=== PATIENT | female | born 1965 | race Caucasian/White ===

== ENCOUNTER 2018-05-16 10:12 | Outpatient (CLI) | payer BC, SELFPAY ==
[2018-05-16 10:59] LABS: Abs Immature Grans 0.01 k/cumm (0.0-0.09); Absolute Basophil Count 0.04 k/cumm (0.0-0.2); Absolute Eosinophil Count 0.06 k/cumm (0.0-0.7); Absolute Lymphocyte Count 3.19 k/cumm (1.2-3.4); Absolute Monocyte Count 0.45 k/cumm (0.11-0.7); Absolute Neutrophil Count 3.88 k/cumm (1.2-6.7); Basophils % 0.5; Eosinophils % 0.8; HCT 42.2 % (36.0-46.0); HGB 13.8 g/dL (12.0-15.5); Immature Grans % 0.1; Lymphocytes % 41.8; Mean Corp. HGB Concentration 32.7 g/dL (32.0-36.0); Mean Corpuscular Hemoglobin 28.1 pg (27.0-33.0); Mean Corpuscular Volume 85.9 fL (80-95); Mean Platelet Volume 9.1 fL (8.0-11.0); Monocytes % 5.9; Neutrophils % 50.9; Platelet Count 226 x1000/uL (130-400); RBC 4.91 m/cumm (4.00-5.20); RBC Distribution Width 13.8 % (11.7-14.6); White Blood Cell Count 7.63 k/cumm (4.4-10.8)
[2018-05-16 11:13] LABS: ALT 23 U/L (12-78); AST 16 U/L (15-37); Albumin 3.6 g/dL (3.4-5.0); Alkaline Phosphatase 76 U/L (46-116); Anion Gap 7.3 mmol/L (3-11); BUN 15 mg/dL (7-18); Bilirubin, Total 0.4 mg/dL (0.2-1.0); CO2 24.7 mmol/L (21.0-32.0); CREATININE 1.09 mg/dL (0.55-1.02); Calcium 9.1 mg/dL (8.5-10.1); Chloride 108 mmol/L (98-107); Estimated GFR 52.31 (mL/min/1.73m2); Glucose 110 mg/dL (70-100); Potassium 3.9 mmol/L (3.5-5.1); Sodium 140 mmol/L (136-145); Total Protein 7.8 g/dL (6.4-8.2)
== END 2018-05-16 10:32 ==
PROVIDERS: PCP Physician Assistant; Visit Provider Nurse Practitioner Adult Health
DX: C50.911 Malignant neoplasm of unspecified site of right female breast (principal); Z17.0 Estrogen receptor positive status [ER+]; C50.912 Malignant neoplasm of unspecified site of left female breast; Z15.01 Genetic susceptibility to malignant neoplasm of breast; Z15.09 Genetic susceptibility to other malignant neoplasm
CPT/HCPCS: 36415; 80053; 85025

== ENCOUNTER 2018-12-07 13:37 | Outpatient (CLI) | payer BC, SELFPAY ==
[2018-12-07 14:14] LABS: ALT 16 U/L (12-78); AST 7 U/L (15-37); Albumin 3.3 g/dL (3.4-5.0); Alkaline Phosphatase 85 U/L (46-116); Anion Gap 8.5 mmol/L (3-11); BUN 10 mg/dL (7-18); Bilirubin, Total 0.3 mg/dL (0.2-1.0); CO2 25.5 mmol/L (21.0-32.0); CREATININE 1.24 mg/dL (0.55-1.02); Calcium 8.5 mg/dL (8.5-10.1); Chloride 108 mmol/L (98-107); Estimated GFR 45.08 (mL/min/1.73m2); Glucose 103 mg/dL (70-100); Potassium 3.3 mmol/L (3.5-5.1); Sodium 142 mmol/L (136-145); Total Protein 7.1 g/dL (6.4-8.2)
[2018-12-07 14:51] LABS: Abs Immature Grans 0.02 k/cumm (0.0-0.09); Absolute Basophil Count 0.03 k/cumm (0.0-0.2); Absolute Eosinophil Count 0.06 k/cumm (0.0-0.7); Absolute Lymphocyte Count 2.03 k/cumm (1.2-3.4); Basophils % 0.5; Eosinophils % 0.9; HGB 12.1 g/dL (12.0-15.5); Immature Grans % 0.3; Mean Corp. HGB Concentration 31.8 g/dL (32.0-36.0); Mean Corpuscular Hemoglobin 27.6 pg (27.0-33.0); Mean Corpuscular Volume 86.8 fL (80-95); Mean Platelet Volume 9.6 fL (8.0-11.0); Monocytes % 7.6; Neutrophils % 59.7; Platelet Count 219 x1000/uL (130-400); RBC 4.38 m/cumm (4.00-5.20); RBC Distribution Width 13.1 % (11.7-14.6); White Blood Cell Count 6.54 k/cumm (4.4-10.8)
== END 2018-12-07 13:57 ==
PROVIDERS: PCP Physician Assistant
DX: C50.912 Malignant neoplasm of unspecified site of left female breast (principal); Z17.0 Estrogen receptor positive status [ER+]
CPT/HCPCS: 36415; 80053; 85025

== ENCOUNTER 2019-08-14 01:17 | Outpatient (CLI) | payer BC, SELFPAY ==
[2019-08-14 13:23] LABS: Abs Immature Grans 0.01 k/cumm (0.0-0.09); Absolute Basophil Count 0.02 k/cumm (0.0-0.2); Absolute Eosinophil Count 0.06 k/cumm (0.0-0.7); Absolute Monocyte Count 0.44 k/cumm (0.11-0.7); Absolute Neutrophil Count 4.91 k/cumm (1.2-6.7); Basophils % 0.2; Eosinophils % 0.7; HCT 39.2 % (36.0-46.0); HGB 12.6 g/dL (12.0-15.5); Immature Grans % 0.1 %; Lymphocytes % 32.3; Mean Corp. HGB Concentration 32.1 g/dL (32.0-36.0); Mean Corpuscular Hemoglobin 27.1 pg (27.0-33.0); Mean Corpuscular Volume 84.3 fL (80-95); Monocytes % 5.5; Neutrophils % 61.2; Platelet Count 243 x1000/uL (130-400); RBC 4.65 m/cumm (4.00-5.20); RBC Distribution Width 13.5 % (11.7-14.6); White Blood Cell Count 8.04 k/cumm (4.4-10.8)
[2019-08-14 13:41] LABS: ALT 21 U/L (14-59); AST 12 U/L (15-37); Albumin 3.5 g/dL (3.4-5.0); Alkaline Phosphatase 85 U/L (46-116); Anion Gap 7.9 mmol/L (3-11); BUN 19 mg/dL (7-18); Bilirubin, Total 0.3 mg/dL (0.2-1.0); CO2 27.1 mmol/L (21.0-32.0); CREATININE 0.99 mg/dL (0.55-1.02); Calcium 9.1 mg/dL (8.5-10.1); Chloride 106 mmol/L (98-107); Estimated GFR 58.24 (mL/min/1.73m2); Glucose 95 mg/dL (74-106); Potassium 3.8 mmol/L (3.5-5.1); Sodium 141 mmol/L (136-145); Total Protein 7.5 g/dL (6.4-8.2)
== END 2019-08-14 01:37 ==
PROVIDERS: PCP Physician Assistant; Visit Provider Internal Medicine
DX: C50.911 Malignant neoplasm of unspecified site of right female breast (principal); C50.912 Malignant neoplasm of unspecified site of left female breast; Z17.0 Estrogen receptor positive status [ER+]
CPT/HCPCS: 36415; 80053; 85025

== ENCOUNTER 2019-12-11 11:35 | Outpatient (CLI) | payer BC, SELFPAY ==
[2019-12-11 13:33] LABS: Abs Immature Grans 0.02 10^3/uL (0.0-0.06); Absolute Basophil Count 0.03 10^3/uL (0.0-0.2); Absolute Eosinophil Count 0.06 10^3/uL (0.0-0.7); Absolute Lymphocyte Count 2.75 10^3/uL (1.2-3.4); Absolute Neutrophil Count 4.04 10^3/uL (1.2-6.7); Basophils % 0.4; Eosinophils % 0.8; HGB 12.9 g/dL (11.2-15.7); Immature Grans % 0.3; Lymphocytes % 37.2; MCH 27.8 pg (27.0-33.0); MCHC 32.3 % (32.0-36.0); MCV 86.2 fL (80-95); MPV 9.1 fL (8.0-11.0); Monocytes % 6.8; Neutrophils % 54.5; Nucleated RBC 0 %; Platelet Count 222 10^3/uL (130-400); RBC 4.64 10^6/uL (3.93-5.22); RDW 12.7 % (11.7-14.6); RDW-SD 39.8 fL
[2019-12-11 14:01] LABS: ALT 19 U/L (14-59); AST 14 U/L (15-37); Albumin 3.6 g/dL (3.4-5.0); Alkaline Phosphatase 69 U/L (46-116); Anion Gap 10.6 mmol/L (3-11); BUN 14 mg/dL (7-18); Bilirubin, Total 0.2 mg/dL (0.2-1.0); CO2 25.4 mmol/L (21.0-32.0); CREATININE 1.09 mg/dL (0.55-1.02); Calcium 8.9 mg/dL (8.5-10.1); Chloride 107 mmol/L (98-107); Estimated GFR 52.11 (mL/min/1.73m2); Glucose 118 mg/dL (74-106); Potassium 3.8 mmol/L (3.5-5.1); Sodium 143 mmol/L (136-145); Total Protein 7.2 g/dL (6.4-8.2)
== END 2019-12-11 11:55 ==
PROVIDERS: PCP Physician Assistant; Visit Provider Internal Medicine
DX: C50.911 Malignant neoplasm of unspecified site of right female breast (principal); C50.912 Malignant neoplasm of unspecified site of left female breast; Z17.0 Estrogen receptor positive status [ER+]
CPT/HCPCS: 36415; 80053; 85025

== ENCOUNTER 2020-10-13 09:59 | Day surgery (SDC) | payer OTHER, SELFPAY ==
[2020-10-13 10:59] VITALS: BP 127/73; PULSE 88; RESP 16; TEMP 36.1; O2SAT 98
[2020-10-13] MEDS: Tropicam./Phenyleph. (1/2.5%) 5 ML BTL OS ×3 (11:05→11:16)
--- NOTE | 2020-10-13 11:18 | W.ANESPRE ---
General Info Date of Service Date Performed: 10/13/20 Height: 5 ft 4 in Weight: 81.7 kg Body Mass Index (BMI): 30.9 Surgical Procedure: Operation Date: 10/13/20 12:40 Proposed Procedures Side Surgeon p Cataract Extraction with IOL Implant Left Srinivasa Marte MD Meds Allergies and Home Medications Allergies Allergy/AdvReac Type Severity Reaction Status Date / Time Iodinated Contrast Media Allergy Severe RASH, Verified 10/13/20 10:43 [Iodinated Contrast Media - THROAT IV Dye] SWELLING clonazepam Allergy Intermediate Itching Unverified 10/13/20 10:43 coconut Allergy Intermediate Hives Unverified 10/13/20 10:43 exemestane Allergy Other (See Unverified 10/13/20 10:43 Comment) ketorolac [From Toradol] Allergy Itching Unverified 10/13/20 10:43 morphine Allergy Hives Unverified 10/13/20 10:43 prednisone Allergy Skin Rash Unverified 10/13/20 10:43 sumatriptan [From Imitrex] Allergy Hives Unverified 10/13/20 10:43 tizanidine Allergy Skin Rash Unverified 10/13/20 10:43 cephalexin AdvReac Intermediate Other (See Unverified 10/13/20 10:43 Comment) ciprofloxacin AdvReac Intermediate Other (See Unverified 10/13/20 10:43 Comment) acetaminophen [From Roxicet] AdvReac Other (See Unverified 10/13/20 10:43 Comment) oxycodone [From Roxicet] AdvReac Other (See Unverified 10/13/20 10:43 Comment) Penicillins AdvReac Other (See Unverified 10/13/20 10:43 Comment) Sulfa (Sulfonamide AdvReac Other (See Unverified 10/13/20 10:43 Antibiotics) Comment) Home Medication Medication Instructions Recorded atenolol 25 mg PO DAILY 09/25/12 lorazepam 2 mg PO HS 09/25/12 nitrofurantoin monohyd/m-cryst 100 mg PO BID #14 capsule 09/25/12 [Macrobid 100 mg Capsule] topiramate [Topamax] 100 mg PO DAILY 09/25/12 amitriptyline 10 mg PO TID 10/09/20 atorvastatin 10 mg PO DAILY 10/09/20 famotidine 20 mg PO BID 10/09/20 gabapentin 300 mg PO TID 10/09/20 hydroxyzine HCl 25 mg PO TID 10/09/20 naratriptan 2.5 mg PO Q2H 10/09/20 pantoprazole 40 mg PO DAILY 10/09/20 tamoxifen 20 mg PO DAILY 10/09/20 cholecalciferol (vitamin D3) 100 mcg PO DAILY 10/13/20 [Vitamin D3] cyanocobalamin (vitamin B-12) 500 mcg PO DAILY 10/13/20 [Vitamin B-12] Current Visit Medications: Current Medications Generic Name Dose Route Start Last Admin Trade Name Freq PRN Reason Stop Dose Admin Acetaminophen 1,000 mg 10/13/20 06:00 Acetaminophen 500 Mg Tab PO Q4H PRN PRN Ringer's Solution 1,000 mls @ 80 mls/hr 10/13/20 06:00 IV 11/09/20 23:59 INFUSION ATIYA IV Miscellaneous Supplies 1 each 10/13/20 06:00 Iv Access IV 11/09/20 23:59 DIRECTED ATIYA Miscellaneous Medication 0 ml 10/13/20 06:00 Prednisolone 1%, Moxifloxacin 0.5%, Nepafenac 0.1% 5ml Btl OS DIRECTED ATIYA Miscellaneous Medication 0 ml 10/13/20 06:00 10/13/20 11:16 Tropicam./Phenyleph. (1/2.5%) 5 Ml Btl OS 1 drp DIRECTED ATIYA Administration Sodium Chloride 0 ml 10/13/20 06:00 Normal Saline Flush 10 Ml Syr IV 11/09/20 23:59 PRN PRN Sodium Chloride 0 ml 10/13/20 06:00 Normal Saline 10 Ml Vial IJ 11/09/20 23:59 DIRECTED PRN Sterile Water 0 ml 10/13/20 06:00 Water,Injection,Sterile 10 Ml Vial IJ 11/09/20 23:59 DIRECTED PRN Tetracaine HCl 0 ml 10/13/20 06:00 Tetracaine 0.5% 4 Ml Btl OS DIRECTED ATIYA PFSH Active Problems Active Problems: Problem Status Onset Code Nuclear sclerotic cataract of left eye H25.12 Cortical cataract of left eye H26.9 Medical History Medical History Abscess of skin and subcutaneous tissue Adhesive capsulitis Arteriosclerotic vascular disease Atrophic vaginitis Bladder disorder bladder muscle dysfunction: overactive Carcinoma of left breast Cataract Claustrophobia Diverticulosis of sigmoid colon Dyspareunia GERD (gastroesophageal reflux disease) History of multiple allergies Hyperlipemia Insomnia Localized enlarged lymph nodes Migraine without aura Muscle weakness LUE Osteopenia Overweight Pain, joint, shoulder, right Spondylosis Thoracic back pain Surgical History Surgical History (Updated 10/13/20 @ 10:43 by Venecia Agustin) Hx of cataract surgery Hx of cholecystectomy Hx of hysterectomy Hx of mastectomy bilateral Tobacco Smoking/Tobacco Use Status: Former Tobacco Use Alcohol Alcohol Intake: current Alcohol intake frequency: holidays/special occasions only Substance Use Substance use: Never Vital Signs and Lab Results Vital Signs Most Recent Vital Signs in EMR: Most Recent Vital Signs Temp Pulse Resp BP Pulse Ox 36.1 C L 88 16 127/73 98 10/13/20 10:59 10/13/20 10:59 10/13/20 10:59 10/13/20 10:59 10/13/20 10:59 Lab Results Blood Type / Crossmatch: No Data to Display Complete Blood Count: No Data to Display Complete Metabolic Panel: No Data to Display Liver Function Panel: No Data to Display Coagulation Panel: No Data to Display Cardiac Panel: No Data to Display Arterial Blood Gas: No Data to Display Venous Blood Gas: No Data to Display Pancreas Panel: No Data to Display Thyroid Panel: No Data to Display Infectious Disease: No Data to Display Blood Cultures: No Data to Display Toxicology Panel: No Data to Display Imaging and Studies Imaging and Studies Pulmonary Function Summary: 07/2012: INTERPRETATION: SPIROMETRY: Spirometry shows mild obstructive airway disease with no significant bronchodilator response. LUNG VOLUMES: No evidence of restriction. DIFFUSION CAPACITY: Moderately reduced. AIRWAY RESISTANCE: Normal. IMPRESSION: Mild obstructive airway disease with no significant bronchodilator response. There is concomitant mild diffusion defect even when corrected to alveolar volume. Clinical correlation recommended. Anesthesia Assessment and Plan Anesthesia History Personal History: No History of Anesthesia Complications and Other (Personal fear of anesthesia ) Family History: No Family History of Anesthesia Complications Exercise Tolerance Exercise Tolerance: Metabolic Equivalents>4 Pertinent Negatives Pertinent Negatives: No Major Cardiovascular Symptoms or Complaints and No Major Pulmonary Symptoms or Complaints Cardiac & Pulmonary Exam Cardiac Exam: Normal S1/S2 Heart Sounds Pulmonary Exam: Clear Bilateral Breath Sounds Airway Exam Known Difficult Airway: No Mallampati Class: 1 Mouth Opening: Normal (> 3cm) Thyromental Distance: Greater than 3 cm Neck Range of Motion: Full ROM Neck Circumference: Normal Teeth Condition: Normal Dentition ASA Classification ASA Score: ASA 3 Emergency Case?: No NPO Status NPO Status: NPO Clears >2 hours, Solids >8 hours Anesthesia Plan Resuscitation Status: Full Code Anesthesia Technique: MAC Anesthesia Airway Planned: Natural Airway Monitors Used: Standard Monitors
[2020-10-13 11:20] VITALS: BMI 30.9
[2020-10-13] MEDS: Lactated Ringers 1,000 ML 80 ML IV (11:36)
[2020-10-13] MEDS: Tetracaine 0.5% 4 ML BTL OS (12:28)
[2020-10-13] MEDS: Balanced Salt Soln.-PLUS 500 ML BAG (12:29)
[2020-10-13] MEDS: Lidocaine 1% Pres-Free 5 ML VIAL (12:30)
[2020-10-13] MEDS: Duovisc Viscoelastic System EACH 1 EACH (12:30)
[2020-10-13] MEDS: Lidocaine 2% Jelly 6 ML SYR (12:31)
[2020-10-13] MEDS: Povidone-Iodine Ophth 30 ML BTL (12:37)
--- NOTE | 2020-10-13 12:51 | W.PM.DSUDISC ---
Discharge Plan Disposition Patient Disposition: HOME Condition: Good Discharge Details Attending Provider: Srinivasa Marte Primary Care Provider: Willian Davis Home Meds and New Rx's Prescriptions: No Action atenolol 25 MG tablet 25 mg PO DAILY RF: 0 lorazepam 2 MG tablet 2 mg PO HS RF: 0 topiramate [Topamax] 50 MG tablet 100 mg PO DAILY RF: 0 nitrofurantoin monohyd/m-cryst [Macrobid] 100 MG capsule 100 mg PO BID Qty: 14 RF: 0 atorvastatin 10 mg tablet 10 mg PO DAILY RF: 0 famotidine 20 mg Tablet 20 mg PO BID RF: 0 amitriptyline 10 mg tablet 10 mg PO TID RF: 0 pantoprazole 40 mg tablet,delayed release (DR/EC) 40 mg PO DAILY RF: 0 gabapentin 300 mg capsule 300 mg PO TID RF: 0 hydroxyzine HCl 25 mg tablet 25 mg PO TID RF: 0 naratriptan 2.5 mg Tablet 2.5 mg PO Q2H RF: 0 tamoxifen 20 mg tablet 20 mg PO DAILY RF: 0 cyanocobalamin (vitamin B-12) [Vitamin B-12] 500 mcg Tablet 500 mcg PO DAILY RF: 0 Vitamin D3 100 mcg (4,000 unit) Capsule 100 mcg PO DAILY RF: 0 Discharge Instructions Stand Alone Forms: Post-op Topical CataractRosita (DSU) Discharge Orders Discharge Orders: Discharge Order (Routine); Ordered 10/13/20 Ordered By: Srinivasa Marte DS: Diagnosis Discharge Diagnosis (1) Nuclear sclerotic cataract of left eye: Status: Resolved (2) Cortical cataract of left eye: Status: Resolved
--- NOTE | 2020-10-13 12:52 | ROE_ITS ---
Date of service: 10/13/20 Time of Service: 12:52 Operative Note Operative Note DATE OF PROCEDURE: 10/13/20 PRE-OP DIAGNOSIS: Nuclear/cortical cataract, left eye POST-OP DIAGNOSIS: same PROCEDURE: Cataract extraction using phacoemulsification with intraocular lens implant, left eye SURGEON: Srinivasa Marte ANESTHESIA TYPE: Local By Surgeon and MAC Refer to Anesthesia Record PATHOLOGY: none sent COMPLICATIONS: None Patient was transported to: same day Patient's condition: stable Implants: [employer] / [employer] Tecnis [id number] Indications: Progressive decreased vision due to cataract, left eye Procedure Description: CATARACT SURGERY OPERATIVE REPORT PREOPERATIVE DIAGNOSIS: Nuclear/cortical cataract, left eye POSTOPERATIVE DIAGNOSIS: Same OPERATION: Cataract extraction using phacoemulsification with posterior chamber intraocular lens implant, left eye. IOL: IOL Receiving Room Clerk/Model: [employer] / JOON Tecnis [id number] IOL Power: + 15.5 diopters IOL Serial Number: [id number] Optic Diameter: 6.0mm Haptic/Overall Diameter: 13.0mm PHACO INFO: Riccardo Ad.[employer] Vision System with OZil and Active [employer] Cumulative Dispersed Energy (CDE): 4.34 seconds SURGEON: Srinivasa Marte MD, RENE ANESTHESIA: Monitored Anesthesia Care (MAC), with local sub-tenon's anesthetic infiltration COMPLICATIONS: None SPECIMENS: None INDICATIONS FOR PROCEDURE: The patient is a 55-year-old lady with history of having undergone cataract surgery in her right eye in 2019. She has done well postoperatively in the right eye with best corrected visual acuity of 20/20. She has now developed a symptomatic nuclear and cortical cataract in the left eye. She desires cataract surgery there and attempt to improve and maximize her vision. PROCEDURE: The correct surgical eye was identified and marked as the left eye and the pupil was dilated in the preoperative area using mydriatics and cycloplegics. The dilated pupil size was 8.0 mm. Oral sedation was administered in the form of an Imprimis MKO Melt (midazolam 3mg/ketamine 25mg/ondansetron 2mg). Intravenous Versed 2 mg was given as well. The patient was brought to the operating room where cardiopulmonary monitoring was instituted and surgical time-out was performed, confirming the correct operative eye and IOL power. Topical anesthesia was administered and ophthalmic povidone-iodine 5% was instilled into the conjunctival fornices. Lidocaine gel was applied to the cornea and the margret-ocular area was prepped with Betadine 10% solution and draped in the usual sterile fashion for intraocular surgery, including an aperture drape. A Tegaderm transparent film dressing was cut in half and used to cover the lashes and lid margins. Care was taken to sequester the lashes and lid margins under the Tegaderm dressing. A lid speculum was placed between the lids of the operative eye and the Jasiel-Kanu operating microscope was maneuvered into position. Ninoska scissors were then used to make a conjunctival buttonhole approximately 6mm posterior to the limbus in the inferonasal quadrant. Blunt dissection was carried out to expose bare sclera, and a blunt-tipped sub-tenon?s anesthesia cannula was introduced and passed posteriorly along the globe where non- preserved plain lidocaine was injected into posterior sub-Tenon?s space. A sideport knife was used to make a paracentesis port superior/superiortemporally. Intraocular phenylephrine/lidocaine was injected into the anterior chamber. The anterior chamber was then filled with viscoelastic. A 2.4mm keratome knife was used to create a half-thickness groove at the limbus and then to construct a three-plane near-clear corneal tunnel extending 2.0mm into clear cornea in the temporal position. . A flap was raised on the anterior capsule and capsulorhexis forceps were used to complete a continuous curvilinear capsulorhexis of 5.5 mm. Balanced salt solution was then used to perform cortical cleaving hydrodissection and nuclear hydrodelineation until the lens could be freely rotated within the capsular bag. The lens nucleus was then disassembled and removed within the capsular bag and iris plane using phacoemulsification. Residual cortical material was removed using the 45-degree angled silicone I/A tip with 0.3mm port. The posterior capsule was carefully polished to remove as much residual lens epithelial cells as safely possible. The capsular bag was then inflated and the anterior chamber deepened with viscoelastic. The lens implant described above was inserted into the capsular bag using the JOON [place] Injector. A Kuglen hook was used to dial the IOL into position. Residual viscoelastic was then removed first from posterior to the IOL, then from the anterior chamber using the I/A handpiece. The lens implant was noted to center nicely within the capsular bag. The incisions were stromally hydrated, and the anterior chamber was reformed using BSS. Then 0.5cc of moxifloxacin 1.0mg/ml were injected into the capsular bag and anterior chamber. The incisions were checked with a Weck spear and found to be secure. Several drops of ophthalmic povidone-iodine 5% were then applied to the eye followed by two drops of Imprimis combination prednisolone/moxifloxacin/nepafenac solution. The drapes were removed and a clear plastic protective eye shield was placed over the eye. The patient was then returned to Same Day Surgery in stable condition.
[2020-10-13 12:59] VITALS: BP 123/81; PULSE 83; RESP 16; TEMP 36.9; O2SAT 94
[2020-10-13 13:17] VITALS: BP 111/69; PULSE 85; RESP 16; TEMP 36.6; O2SAT 96
--- NOTE | 2020-10-13 13:37 | W.ANESPOSTOP ---
Postoperative Evaluation Date, Time and Location Date Performed: 10/13/20 Time Performed: 13:30 Patient Location: Day Surgery Unit Vital Signs Most Recent Imported Vital Signs: Most Recent Vital Signs Temp Pulse Resp BP Pulse Ox 36.6 C 85 16 111/69 96 10/13/20 13:30 10/13/20 13:30 10/13/20 13:30 10/13/20 13:30 10/13/20 13:30 Pain Score Most Recent Pain Score: Most Recent Pain Score Pain Level 0 10/13/20 13:30 Assessment Mental Status: Awake (Alert & Oriented to Patient Baseline) Airway and Respiratory Function: Patent airway with normal (patient baseline) respiratory exam Cardiovascular Function: Hemodynamically Stable Hydration Status: Adequately Hydrated Nausea & Vomiting: No Nausea or Vomiting Pain: Pt. Denies Any Pain Peripheral Nerve Block: Patient did not receive a nerve block
--- NOTE | 2020-10-13 13:37 | W.ANESPOSTOP ---
Postoperative Evaluation Date, Time and Location Date Performed: 10/13/20 Time Performed: 13:00 Patient Location: Day Surgery Unit Vital Signs Most Recent Imported Vital Signs: Most Recent Vital Signs Temp Pulse Resp BP Pulse Ox 36.6 C 85 16 111/69 96 10/13/20 13:30 10/13/20 13:30 10/13/20 13:30 10/13/20 13:30 10/13/20 13:30 Pain Score Most Recent Pain Score: Most Recent Pain Score Pain Level 0 10/13/20 13:30 Assessment Mental Status: Awake (Alert & Oriented to Patient Baseline) Airway and Respiratory Function: Patent airway with normal (patient baseline) respiratory exam Cardiovascular Function: Hemodynamically Stable Hydration Status: Adequately Hydrated Nausea & Vomiting: No Nausea or Vomiting Pain: Pt. Denies Any Pain Peripheral Nerve Block: Patient did not receive a nerve block
== END 2020-10-13 13:25 | disposition home or self-care (01) ==
PROVIDERS: PCP Physician Assistant; Visit Provider Ophthalmology
PROC: (CPT 66984; principal; 2020-10-13 12:30)
DX: H25.12 Age-related nuclear cataract, left eye (principal); K21.9 Gastro-esophageal reflux disease without esophagitis; E78.5 Hyperlipidemia, unspecified
CPT/HCPCS: 66984; V2632; J2250

== ENCOUNTER 2021-03-02 00:06 | Outpatient (CLI) | payer OTHER, SELFPAY ==
--- NOTE | 2021-03-02 08:30 | DI.NM_ITS ---
Exam(s) NM BONE SCAN WHOLE BODY GRP EXAM: NM BONE SCAN WHOLE BODY GRP CLINICAL HISTORY: F/U ABNL SPINE MRI,R93.7,ABNL MARROW SIGNAL L1,? METASTATIC LESION,? LESION. TECHNIQUE: Injected Dose: 26 mCi Tc-99m MDP Delayed Images: 2-3 hours. COMPARISON: CT CHEST WITHOUT CONTRAST from 08/01/2012 CR CHEST 2 VIEWS PA,LAT from 09/25/2012 CR CHEST 2 VIEWS PA,LAT from 09/25/2012 MR MR LS SPINE WO CONTRAST from 02/17/2021 MR MR LS SPINE WO CONTRAST from 02/17/2021 FINDINGS: There is increased radiotracer uptake in the left aspect of the L1 vertebral body corresponding to th e abnormal signal seen on the MRI of the lumbar spine from 02/17/2021. There is also diffuse increas ed radiotracer uptake seen in the sternum, distal right femur and in the T4 vertebral body. Bilatera l renal excretion is identified. Symmetrical increased radiotracer uptake is seen in the shoulders wh ich is likely degenerative. IMPRESSION: Increased radiotracer uptake seen in the L1 vertebral body, T4 vertebral body, sternum and distal rig ht femur suspicious for metastatic disease. DATA REPOSITORY:
== END 2021-03-02 00:26 ==
PROVIDERS: PCP Physician Assistant; Visit Provider Internal Medicine
DX: Z85.3 Personal history of malignant neoplasm of breast (principal); R93.7 Abnormal findings on diagnostic imaging of other parts of musculoskeletal system
CPT/HCPCS: 78306

== ENCOUNTER 2021-04-27 00:43 | Outpatient (CLI) | payer OTHER, SELFPAY ==
--- NOTE | 2021-04-27 14:59 | DI.US_ITS ---
APPROVED REPORT EXAM: Comprehensive 2D, Doppler, and color-flow Echocardiogram Patient Location: Out-Patient Escapement Maker: Karoline Lopez RDCS (AE) Indications: Breast Cancer, Pre Chemo Other Information Study Quality: Fair. Technically limited study due to body habitus, post operative dressings. Conclusion Normal left ventricular wall thickness and chamber size. Estimated ejection fraction is 55 to 60%. There are no segmental wall motion abnormalities Normal right ventricular size and systolic function Both atria are normal in size There is no apparent structural or hemodynamically significant valvular disease Wall motion Left Ventricle The left ventricle is normal size. The left ventricular systolic function is normal. The left ventric ular ejection fraction is within the normal range. There is normal left ventricular wall thickness. T here is normal LV segmental wall motion. There is no ventricular septal defect visualized. LVEF is 55 -60%. Right Ventricle Right ventricle is grossly normal in size. Right ventricular systolic function is grossly normal. Atria The left atrium size is normal. The right atrium size is normal. The interatrial septum is intact wit h no evidence for an atrial septal defect. Aortic Valve The aortic valve is normal in structure. Aortic valve is probably trileaflet. There is no aortic valv ular stenosis. No aortic regurgitation is present. Mitral Valve The mitral valve is normal in structure. No evidence of mitral valve stenosis. Trace mitral regurgita tion. Tricuspid Valve The tricuspid valve is normal in structure. There is no tricuspid valve stenosis. Trace tricuspid reg urgitation. Unable to assess PA pressure. Pulmonic Valve The pulmonary valve is normal in structure. There is no pulmonic valvular stenosis. There is no pulmo adrienne valvular regurgitation. Great Vessels The aortic root is normal in size. Ascending aorta is not well visualized. Aortic arch is not visuali zed. IVC is normal in size and collapses >50% with inspiration. Pericardium There is no pericardial effusion. 2D Dimensions IVSD d PLAX 0.68 cm F: 0.6-1.0 LV Vol A2C d MOD 69.8 mL LVPW d PLAX 0.69 cm F: 0.6 - 1.0 LV Vol A4C d MOD 61.2 mL LVID d PLAX 4.00 cm F: 3.8 - 5.2 LV EF A4C MOD 55.4 % LVDs 2.80 cm F: 2.2 - 3.5 LV EF A2C MOD 55.3 % Ao Root d 2.99 cm F: 2.7 - 3.3 LV EF Biplane MOD 55.7 % LV EF Teichholz 56.5 % SV 38.39 mL LVEF (Ratliff's) 55.69 % F: 54 - 74 SV Index 20.53 mL/m2 LV Volume 52.90 mL F: 46 - 106 LV Volume Index 28.28 mL/m2 F: 29 - 61 LV Vol Biplane MOD 68.9 mL FS 29.15 % LV Diastology MV E' medial 0.056 (>0.07 m/s) E/A Ratio 0.8 LV E/e MED 10.65 (<14) MV E Vmax 0.60 (0.4-1.3 m/s) MV E' lateral 0.066 (>0.1 m/s) MV A Vmax 0.80 (0.4-1.3 m/s) LV E/e LAT 9.10 (<14) MV E/A Ratio 0.75 MV E/E' medial 10.70 MV E/E' lateral 9.11 Aortic Valve LVOT Area 3.35 cm2 AoV Area Vmax 2.72 cm2 LVOT Vmax 0.85 m/s AoV Area/ BSA (Vmax) 1.46 cm2/m2 LVOT Mean Chavez. 0.55 m/s NICO Mean Chavez. 2.47 cm2 LVOT Peak Grad 2.9 mmHg NICO Mean Chavez. Index 1.32 cm2/m2 LVOT Mean Grad 1.4 mmHg LVOT VTI 0.150 m LVOT Diam s 2.05 cm AoV Vmax 1.04 m/s Velocity Ratio 0.81 AoV Mean Chavez. 0.75 m/s AoV Peak Grad 4.4 mmHg LVOT SV 50.21 mL AoV Mean Grad 2.5 mmHg AoV VTI 0.179 m AoV Area VTI 2.80 cm2 AoV Area/ BSA (VTI) 1.50 cm/m2 Mitral Valve MV DT 285 (160-240 msec) MV PHT 83 msec MV Area PHT 2.66 cm2 Pulmonary Valve PV Vmax 0.81 (0.5-1.5 m/s) RVOT Peak Gr. 1.26 mmHg PV Peak Grad 2.6 mmHg RVOT Mean Gr. 0.65 mmHg PV Mean Grad 1.4 mmHg RVOT VTI 0.126 m PV VTI 0.158 m RVOT Vmax 0.56 m/s
== END 2021-04-27 01:03 ==
PROVIDERS: PCP Physician Assistant; Visit Provider Internal Medicine
DX: C50.911 Malignant neoplasm of unspecified site of right female breast (principal); C50.912 Malignant neoplasm of unspecified site of left female breast; Z17.0 Estrogen receptor positive status [ER+]
CPT/HCPCS: 93306

== ENCOUNTER 2021-05-19 03:36 | Outpatient (RCR) | payer OTHER, SELFPAY ==
[2021-04-29] MEDS: Normal Saline Flush 10 ML SYR IVP (07:56)
[2021-04-29 08:35] LABS: Abs Immature Grans 0.02 10^3/uL (0.0-0.06); Absolute Basophil Count 0.03 10^3/uL (0.0-0.2); Absolute Monocyte Count 0.48 10^3/uL (0.1-0.8); Basophils % 0.4; Eosinophils % 2.9; HCT 37.4 % (36.0-46.0); HGB 11.5 g/dL (11.2-15.7); Immature Grans % 0.3; Lymphocytes % 15.9; MCH 26.4 pg (27.0-33.0); MCHC 30.7 % (32.0-36.0); MCV 85.8 fL (80-95); MPV 9.1 fL (8.0-11.0); Monocytes % 6.9; Neutrophils % 73.6; Nucleated RBC 0 %; Platelet Count 276 10^3/uL (130-400); RBC 4.36 10^6/uL (3.93-5.22); RDW 13.2 % (11.7-14.6); RDW-SD 41.4 fL; WBC 6.93 10^3/uL (4.4-10.8)
[2021-04-29 08:49] LABS: ALT 17 U/L (14-59); AST 17 U/L (15-37); Albumin 2.7 g/dL (3.4-5.0); Alkaline Phosphatase 80 U/L (46-116); Anion Gap 7.9 mmol/L (3-11); BUN 14 mg/dL (7-18); Bilirubin, Total 0.2 mg/dL (0.2-1.0); CO2 26.1 mmol/L (21.0-32.0); CREATININE 0.9 mg/dL (0.55-1.02); Calcium 9.1 mg/dL (8.5-10.1); Chloride 110 mmol/L (98-107); Glucose 116 mg/dL (74-106); Potassium 3.8 mmol/L (3.5-5.1); Sodium 144 mmol/L (136-145); Total Protein 6.1 g/dL (6.4-8.2)
[2021-04-30 14:41] LABS: Cancer Ag 15-3 448 U/mL (<30)
[2021-05-05] MEDS: Normal Saline Flush 10 ML SYR IVP (07:36)
[2021-05-05 07:40] LABS: Abs Immature Grans 0.04 10^3/uL (0.0-0.06); Absolute Basophil Count 0.02 10^3/uL (0.0-0.2); Absolute Lymphocyte Count 0.92 10^3/uL (1.2-3.4); Absolute Monocyte Count 0.21 10^3/uL (0.1-0.8); Absolute Neutrophil Count 4.73 10^3/uL (1.2-6.7); Basophils % 0.3; HCT 43.6 % (36.0-46.0); HGB 13.9 g/dL (11.2-15.7); Immature Grans % 0.7; Lymphocytes % 15.5; MCH 26.8 pg (27.0-33.0); MCHC 31.9 % (32.0-36.0); MPV 8.8 fL (8.0-11.0); Monocytes % 3.5; Nucleated RBC 0 %; Platelet Count 298 10^3/uL (130-400); RBC 5.19 10^6/uL (3.93-5.22); RDW 13.3 % (11.7-14.6); WBC 5.92 10^3/uL (4.4-10.8)
[2021-05-05 07:54] LABS: ALT 21 U/L (14-59); AST 15 U/L (15-37); Albumin 3.2 g/dL (3.4-5.0); Alkaline Phosphatase 90 U/L (46-116); Anion Gap 10.9 mmol/L (3-11); BUN 13 mg/dL (7-18); Bilirubin, Total 0.2 mg/dL (0.2-1.0); CO2 23.1 mmol/L (21.0-32.0); CREATININE 0.9 mg/dL (0.55-1.02); Calcium 8.8 mg/dL (8.5-10.1); Chloride 107 mmol/L (98-107); Glucose 158 mg/dL (74-106); Potassium 3.8 mmol/L (3.5-5.1); Sodium 141 mmol/L (136-145)
[2021-05-12 10:19] LABS: Abs Immature Grans 0.14 10^3/uL (0.0-0.06); Absolute Basophil Count 0.02 10^3/uL (0.0-0.2); Absolute Lymphocyte Count 1.24 10^3/uL (1.2-3.4); Basophils % 0.1; HCT 38.5 % (36.0-46.0); HGB 12.4 g/dL (11.2-15.7); Immature Grans % 0.8; Lymphocytes % 7.3; MCH 26.7 pg (27.0-33.0); MCHC 32.2 % (32.0-36.0); MPV 8.9 fL (8.0-11.0); Monocytes % 4.5; Neutrophils % 87.3; Nucleated RBC 0 %; Platelet Count 282 10^3/uL (130-400); RBC 4.64 10^6/uL (3.93-5.22); RDW 13.4 % (11.7-14.6); RDW-SD 40.7 fL; WBC 16.94 10^3/uL (4.4-10.8)
[2021-05-12 10:24] LABS: Absolute Monocyte Count 0.76 10^3/uL (0.1-0.8); Absolute Neutrophil Count 14.79 10^3/uL (1.2-6.7)
[2021-05-12] MEDS: Normal Saline Flush 10 ML SYR IVP (10:40)
[2021-05-12 12:12] LABS: ALT 20 U/L (14-59); AST 14 U/L (15-37); Albumin 3.2 g/dL (3.4-5.0); Alkaline Phosphatase 98 U/L (46-116); Anion Gap 12.1 mmol/L (3-11); BUN 12 mg/dL (7-18); Bilirubin, Total 0.2 mg/dL (0.2-1.0); CO2 20.9 mmol/L (21.0-32.0); CREATININE 0.9 mg/dL (0.55-1.02); Calcium 8.9 mg/dL (8.5-10.1); Chloride 107 mmol/L (98-107); Glucose 151 mg/dL (74-106); Potassium 3.6 mmol/L (3.5-5.1); Sodium 140 mmol/L (136-145); Total Protein 6.8 g/dL (6.4-8.2)
[2021-05-13 14:39] LABS: Cancer Ag 15-3 374 U/mL (<30)
[2021-05-19] MEDS: Normal Saline Flush 10 ML SYR IVP (08:54)
[2021-05-19 09:06] LABS: Abs Immature Grans 0.12 10^3/uL (0.0-0.06); Absolute Basophil Count 0.04 10^3/uL (0.0-0.2); Absolute Lymphocyte Count 0.87 10^3/uL (1.2-3.4); Absolute Monocyte Count 0.21 10^3/uL (0.1-0.8); Absolute Neutrophil Count 7.22 10^3/uL (1.2-6.7); Basophils % 0.5; HCT 37.8 % (36.0-46.0); HGB 12.1 g/dL (11.2-15.7); Immature Grans % 1.4; Lymphocytes % 10.3; MCH 26.8 pg (27.0-33.0); MCV 83.6 fL (80-95); MPV 9.1 fL (8.0-11.0); Monocytes % 2.5; Neutrophils % 85.3; Nucleated RBC 0 %; Platelet Count 312 10^3/uL (130-400); RBC 4.52 10^6/uL (3.93-5.22); RDW 13.2 % (11.7-14.6); RDW-SD 40.5 fL; WBC 8.46 10^3/uL (4.4-10.8)
[2021-05-19 09:25] LABS: ALT 25 U/L (14-59); AST 13 U/L (15-37); Albumin 3.1 g/dL (3.4-5.0); Alkaline Phosphatase 102 U/L (46-116); Anion Gap 11.7 mmol/L (3-11); BUN 9 mg/dL (7-18); Bilirubin, Total 0.2 mg/dL (0.2-1.0); CO2 20.3 mmol/L (21.0-32.0); CREATININE 0.8 mg/dL (0.55-1.02); Calcium 8.8 mg/dL (8.5-10.1); Chloride 106 mmol/L (98-107); Glucose 157 mg/dL (74-106); Potassium 3.7 mmol/L (3.5-5.1); Sodium 138 mmol/L (136-145); Total Protein 6.7 g/dL (6.4-8.2)
[2021-05-20 12:41] LABS: Cancer Ag 15-3 286 U/mL (<30)
== END 2021-05-25 23:59 | disposition home or self-care (01) ==
LOC: INF 03:36
PROVIDERS: PCP Physician Assistant; Visit Provider Internal Medicine
DX: C50.911 Malignant neoplasm of unspecified site of right female breast (principal); Z17.0 Estrogen receptor positive status [ER+]; C50.912 Malignant neoplasm of unspecified site of left female breast; Z45.2 Encounter for adjustment and management of vascular access device
CPT/HCPCS: 36591; 80053; 86304; 85025; 86300

== ENCOUNTER 2021-05-21 02:40 | Outpatient (CLI) | payer OTHER, SELFPAY ==
--- NOTE | 2021-05-21 | DI.MRI_ITS ---
Exam(s) MR BRAIN WO/W EXAM: MR BRAIN WO/W CLINICAL HISTORY: BREAST CANCER C50.911 Z17.0 C50.912, STAGING TECHNIQUE: Multiplanar multisequence MRI of the brain was performed. CONTRAST MATERIAL: IV Contrast: 16 ML of Dotarem contrast administered. COMPARISON: CT CHEST WITHOUT CONTRAST from 08/01/2012 FINDINGS: VENTRICLES AND EXTRA AXIAL SPACES: Normal in size and morphology for the patient's age. HEMORRHAGE: None. CEREBRAL PARENCHYMA: No focus of restricted diffusion to suggest acute infarct. No space-occupying le molina identified. There are multiple foci of hyperintense signal in the white matter on the T2 and FLA IR images. MIDLINE SHIFT: None. BRAINSTEM/CEREBELLUM: Normal. CALVARIUM: Normal. ENHANCEMENT: No suspicious enhancement identified. VISUALIZED PARANASAL SINUSES/MASTOIDS: Clear. [place]: Normal flow void. [place]: Unremarkable. OTHER FINDINGS: IMPRESSION: No evidence of intracranial metastases. DATA REPOSITORY:
[2021-05-21] MEDS: Gadoterate meglumine 20 ML VIAL 16 ML IVP (13:00)
[2021-05-21] MEDS: Normal Saline Flush 10 ML SYR IVP (13:01)
== END 2021-05-21 03:00 ==
PROVIDERS: PCP Physician Assistant; Visit Provider Internal Medicine
DX: C50.911 Malignant neoplasm of unspecified site of right female breast (principal); C50.912 Malignant neoplasm of unspecified site of left female breast; Z17.0 Estrogen receptor positive status [ER+]; R90.82 White matter disease, unspecified; Z12.89 Encounter for screening for malignant neoplasm of other sites
CPT/HCPCS: 70553

== ENCOUNTER 2021-06-17 00:55 | Outpatient (RCR) | payer OTHER, SELFPAY ==
[2021-05-26] MEDS: Normal Saline Flush 10 ML SYR IVP (10:45)
[2021-05-26 10:55] LABS: Abs Immature Grans 0.01 10^3/uL (0.0-0.06); HCT 37.4 % (36.0-46.0); HGB 11.8 g/dL (11.2-15.7); MCH 26.3 pg (27.0-33.0); MCHC 31.6 % (32.0-36.0); MCV 83.3 fL (80-95); MPV 9.1 fL (8.0-11.0); Nucleated RBC 0 %; RBC 4.49 10^6/uL (3.93-5.22); RDW 13.6 % (11.7-14.6); RDW-SD 40.9 fL
[2021-05-26 11:07] LABS: ALT 60 U/L (14-59); AST 39 U/L (15-37); Albumin 3.3 g/dL (3.4-5.0); Alkaline Phosphatase 92 U/L (46-116); Anion Gap 8.7 mmol/L (3-11); BUN 19 mg/dL (7-18); Bilirubin, Total 0.4 mg/dL (0.2-1.0); CO2 25.3 mmol/L (21.0-32.0); CREATININE 1.1 mg/dL (0.55-1.02); Calcium 8.5 mg/dL (8.5-10.1); Chloride 102 mmol/L (98-107); Glucose 161 mg/dL (74-106); Potassium 3.6 mmol/L (3.5-5.1); Sodium 136 mmol/L (136-145); Total Protein 6.8 g/dL (6.4-8.2); WBC 1.71 10^3/uL (4.4-10.8)
[2021-05-26 11:17] LABS: Absolute Eosinophil Count 0.03 10^3/uL (0.0-0.7); Absolute Lymphocyte Count 0.87 10^3/uL (1.2-3.4); Absolute Monocyte Count 0.17 10^3/uL (0.1-0.8); Atypical Lymphocytes % 3; Diff Comment Manual Differential; Platelet Count 266 10^3/uL (130-400); RBC Morphology Normal
[2021-05-26 12:22] LABS: Bands % 1
[2021-05-26 12:23] LABS: Absolute Neutrophil Count 0.63 10^3/uL (1.2-6.7)
[2021-06-02] MEDS: Normal Saline Flush 10 ML SYR IVP (10:20)
[2021-06-02 10:31] LABS: Abs Immature Grans 0.49 10^3/uL (0.0-0.06); HCT 36.7 % (36.0-46.0); HGB 11.5 g/dL (11.2-15.7); MCH 26.3 pg (27.0-33.0); MCHC 31.3 % (32.0-36.0); MCV 83.8 fL (80-95); MPV 8.8 fL (8.0-11.0); Nucleated RBC 0 %; Platelet Count 282 10^3/uL (130-400); RBC 4.38 10^6/uL (3.93-5.22); RDW 14.6 % (11.7-14.6); RDW-SD 44.2 fL; WBC 5.86 10^3/uL (4.4-10.8)
[2021-06-02 10:44] LABS: ALT 30 U/L (14-59); AST 21 U/L (15-37); Alkaline Phosphatase 74 U/L (46-116); Anion Gap 11.5 mmol/L (3-11); BUN 10 mg/dL (7-18); Bilirubin, Total 0.4 mg/dL (0.2-1.0); CO2 24.5 mmol/L (21.0-32.0); CREATININE 0.9 mg/dL (0.55-1.02); Calcium 8.3 mg/dL (8.5-10.1); Chloride 106 mmol/L (98-107); Glucose 124 mg/dL (74-106); Potassium 3.2 mmol/L (3.5-5.1); Sodium 142 mmol/L (136-145); Total Protein 6.3 g/dL (6.4-8.2)
[2021-06-02 11:02] LABS: Absolute Lymphocyte Count 2.11 10^3/uL (1.2-3.4); Absolute Monocyte Count 0.64 10^3/uL (0.1-0.8); Absolute Neutrophil Count 2.93 10^3/uL (1.2-6.7); Atypical Lymphocytes % 14; Bands % 0; Basophilic Stippling Present; Diff Comment Manual Differential; Metamyelocytes % 2; Myelocytes % 1
[2021-06-02 11:03] LABS: Polychromasia Present
[2021-06-09] MEDS: Normal Saline Flush 10 ML SYR IVP (10:18)
[2021-06-09 10:29] LABS: Abs Immature Grans 0.18 10^3/uL (0.0-0.06); Absolute Basophil Count 0.05 10^3/uL (0.0-0.2); Absolute Eosinophil Count 0.05 10^3/uL (0.0-0.7); Absolute Lymphocyte Count 1.65 10^3/uL (1.2-3.4); Absolute Monocyte Count 0.45 10^3/uL (0.1-0.8); Absolute Neutrophil Count 4.07 10^3/uL (1.2-6.7); Basophils % 0.8; Eosinophils % 0.8; HCT 36.6 % (36.0-46.0); HGB 11.3 g/dL (11.2-15.7); Immature Grans % 2.8; Lymphocytes % 25.6; MCH 26.2 pg (27.0-33.0); MCHC 30.9 % (32.0-36.0); MCV 84.9 fL (80-95); MPV 9.2 fL (8.0-11.0); Nucleated RBC 0 %; Platelet Count 337 10^3/uL (130-400); RBC 4.31 10^6/uL (3.93-5.22); RDW 14.3 % (11.7-14.6); RDW-SD 43.8 fL; WBC 6.45 10^3/uL (4.4-10.8)
[2021-06-09 10:46] LABS: ALT 25 U/L (14-59); AST 15 U/L (15-37); Alkaline Phosphatase 82 U/L (46-116); Anion Gap 10.2 mmol/L (3-11); BUN 14 mg/dL (7-18); Bilirubin, Total 0.2 mg/dL (0.2-1.0); CO2 22.8 mmol/L (21.0-32.0); CREATININE 0.7 mg/dL (0.55-1.02); Calcium 8.4 mg/dL (8.5-10.1); Chloride 109 mmol/L (98-107); Glucose 116 mg/dL (74-106); Potassium 3.9 mmol/L (3.5-5.1); Sodium 142 mmol/L (136-145); Total Protein 6.5 g/dL (6.4-8.2)
[2021-06-10 17:44] LABS: Cancer Ag 15-3 137 U/mL (<30)
[2021-06-17] MEDS: Normal Saline Flush 10 ML SYR IVP (08:52)
[2021-06-17 09:00] LABS: Abs Immature Grans 0.19 10^3/uL (0.0-0.06); Absolute Basophil Count 0.04 10^3/uL (0.0-0.2); Absolute Eosinophil Count 0.08 10^3/uL (0.0-0.7); Absolute Lymphocyte Count 1.61 10^3/uL (1.2-3.4); Absolute Monocyte Count 0.49 10^3/uL (0.1-0.8); Absolute Neutrophil Count 3.62 10^3/uL (1.2-6.7); Basophils % 0.7; Eosinophils % 1.3; HCT 34.9 % (36.0-46.0); HGB 11.1 g/dL (11.2-15.7); Immature Grans % 3.2; Lymphocytes % 26.7; MCH 26.7 pg (27.0-33.0); MCHC 31.8 % (32.0-36.0); MCV 83.9 fL (80-95); MPV 9.5 fL (8.0-11.0); Monocytes % 8.1; Nucleated RBC 0 %; Platelet Count 250 10^3/uL (130-400); RBC 4.16 10^6/uL (3.93-5.22); RDW 15.7 % (11.7-14.6); RDW-SD 47.1 fL; WBC 6.03 10^3/uL (4.4-10.8)
[2021-06-17 09:13] LABS: ALT 41 U/L (14-59); AST 28 U/L (15-37); Alkaline Phosphatase 84 U/L (46-116); Anion Gap 10.2 mmol/L (3-11); BUN 16 mg/dL (7-18); Bilirubin, Total 0.3 mg/dL (0.2-1.0); CO2 23.8 mmol/L (21.0-32.0); Calcium 8.5 mg/dL (8.5-10.1); Chloride 108 mmol/L (98-107); Estimated GFR 57.15 (mL/min/1.73m2); Glucose 137 mg/dL (74-106); Potassium 3.5 mmol/L (3.5-5.1); Sodium 142 mmol/L (136-145); Total Protein 6.3 g/dL (6.4-8.2)
== END 2021-06-22 23:59 | disposition home or self-care (01) ==
LOC: INF 00:55
PROVIDERS: PCP Physician Assistant; Visit Provider Internal Medicine
DX: Z45.2 Encounter for adjustment and management of vascular access device (principal); C50.911 Malignant neoplasm of unspecified site of right female breast; Z17.0 Estrogen receptor positive status [ER+]; C50.912 Malignant neoplasm of unspecified site of left female breast
CPT/HCPCS: 36591; 80053; 86304; 85025; 86300

== ENCOUNTER 2021-07-21 02:16 | Outpatient (RCR) | payer OTHER, SELFPAY ==
[2021-06-23] MEDS: Normal Saline Flush 10 ML SYR IVP (12:22)
[2021-06-23 12:28] LABS: Abs Immature Grans 0.14 10^3/uL (0.0-0.06); Absolute Basophil Count 0.06 10^3/uL (0.0-0.2); Absolute Eosinophil Count 0.08 10^3/uL (0.0-0.7); Absolute Lymphocyte Count 1.54 10^3/uL (1.2-3.4); Absolute Monocyte Count 0.33 10^3/uL (0.1-0.8); Absolute Neutrophil Count 4.24 10^3/uL (1.2-6.7); Basophils % 0.9; Eosinophils % 1.3; HCT 34.5 % (36.0-46.0); Immature Grans % 2.2; Lymphocytes % 24.1; MCHC 31.9 % (32.0-36.0); MCV 84.6 fL (80-95); MPV 9.3 fL (8.0-11.0); Monocytes % 5.2; Neutrophils % 66.3; Nucleated RBC 0 %; Platelet Count 285 10^3/uL (130-400); RBC 4.08 10^6/uL (3.93-5.22); RDW 15.7 % (11.7-14.6); RDW-SD 47.1 fL; WBC 6.39 10^3/uL (4.4-10.8)
[2021-06-23 12:42] LABS: ALT 28 U/L (14-59); AST 19 U/L (15-37); Albumin 3.1 g/dL (3.4-5.0); Alkaline Phosphatase 76 U/L (46-116); Anion Gap 10.2 mmol/L (3-11); BUN 12 mg/dL (7-18); Bilirubin, Total 0.4 mg/dL (0.2-1.0); CO2 22.8 mmol/L (21.0-32.0); CREATININE 0.8 mg/dL (0.55-1.02); Calcium 8.7 mg/dL (8.5-10.1); Chloride 107 mmol/L (98-107); Glucose 109 mg/dL (74-106); Potassium 3.3 mmol/L (3.5-5.1); Sodium 140 mmol/L (136-145); Total Protein 6.4 g/dL (6.4-8.2)
[2021-06-30] MEDS: Normal Saline Flush 10 ML SYR IVP (10:31)
[2021-06-30 10:41] LABS: HCT 33.4 % (36.0-46.0); HGB 10.6 g/dL (11.2-15.7); MCH 26.9 pg (27.0-33.0); MCHC 31.7 % (32.0-36.0); MCV 84.8 fL (80-95); MPV 9.4 fL (8.0-11.0); Nucleated RBC 0 %; Platelet Count 297 10^3/uL (130-400); RBC 3.94 10^6/uL (3.93-5.22); RDW 16.4 % (11.7-14.6); RDW-SD 50.5 fL
[2021-06-30 10:50] LABS: Absolute Lymphocyte Count 1.02 10^3/uL (1.2-3.4); Absolute Neutrophil Count 4.99 10^3/uL (1.2-6.7); Atypical Lymphocytes % 8; Bands % 4
[2021-06-30 10:51] LABS: Absolute Monocyte Count 0.13 10^3/uL (0.1-0.8); Diff Comment Manual Differential; Metamyelocytes % 3; Myelocytes % 1; RBC Morphology Normal
[2021-06-30 11:00] LABS: ALT 21 U/L (14-59); AST 23 U/L (15-37); Albumin 2.9 g/dL (3.4-5.0); Alkaline Phosphatase 63 U/L (46-116); Anion Gap 8.8 mmol/L (3-11); BUN 5 mg/dL (7-18); Bilirubin, Total 0.3 mg/dL (0.2-1.0); CO2 24.2 mmol/L (21.0-32.0); CREATININE 0.8 mg/dL (0.55-1.02); Calcium 8.3 mg/dL (8.5-10.1); Chloride 110 mmol/L (98-107); Glucose 130 mg/dL (74-106); Potassium 3.3 mmol/L (3.5-5.1); Sodium 143 mmol/L (136-145); Total Protein 5.9 g/dL (6.4-8.2)
[2021-07-01 16:24] LABS: Cancer Ag 15-3 71 U/mL (<30)
[2021-07-14 09:46] LABS: Abs Immature Grans 0.05 10^3/uL (0.0-0.06); Absolute Basophil Count 0.05 10^3/uL (0.0-0.2); Absolute Eosinophil Count 0.21 10^3/uL (0.0-0.7); Absolute Lymphocyte Count 1.87 10^3/uL (1.2-3.4); Absolute Monocyte Count 0.69 10^3/uL (0.1-0.8); Basophils % 0.7; Eosinophils % 2.9; HGB 11.6 g/dL (11.2-15.7); Immature Grans % 0.7; Lymphocytes % 26.1; MCH 27.2 pg (27.0-33.0); MCHC 31.4 % (32.0-36.0); MCV 86.9 fL (80-95); MPV 8.9 fL (8.0-11.0); Monocytes % 9.6; Nucleated RBC 0 %; Platelet Count 266 10^3/uL (130-400); RBC 4.26 10^6/uL (3.93-5.22); RDW 15.9 % (11.7-14.6); RDW-SD 50.7 fL; WBC 7.17 10^3/uL (4.4-10.8)
[2021-07-14] MEDS: Normal Saline Flush 10 ML SYR IVP (09:46)
[2021-07-14 10:07] LABS: ALT 20 U/L (14-59); AST 14 U/L (15-37); Albumin 3.1 g/dL (3.4-5.0); Alkaline Phosphatase 64 U/L (46-116); Anion Gap 4.5 mmol/L (3-11); BUN 17 mg/dL (7-18); Bilirubin, Total 0.2 mg/dL (0.2-1.0); CO2 27.5 mmol/L (21.0-32.0); CREATININE 0.8 mg/dL (0.55-1.02); Calcium 8.8 mg/dL (8.5-10.1); Chloride 109 mmol/L (98-107); Glucose 95 mg/dL (74-106); Potassium 4.1 mmol/L (3.5-5.1); Sodium 141 mmol/L (136-145); Total Protein 6.6 g/dL (6.4-8.2)
== END 2021-07-23 23:59 | disposition home or self-care (01) ==
LOC: INF 02:16
PROVIDERS: PCP Physician Assistant; Visit Provider Internal Medicine
DX: C50.911 Malignant neoplasm of unspecified site of right female breast (principal); Z17.0 Estrogen receptor positive status [ER+]; C50.912 Malignant neoplasm of unspecified site of left female breast; Z45.2 Encounter for adjustment and management of vascular access device
CPT/HCPCS: 36591; 80053; 86304; 85025; 86300

== ENCOUNTER 2021-08-18 04:43 | Outpatient (RCR) | payer OTHER, SELFPAY ==
[2021-07-28] MEDS: Normal Saline Flush 10 ML SYR IVP (09:38)
[2021-07-28 10:00] LABS: Abs Immature Grans 0.04 10^3/uL (0.0-0.06); Absolute Basophil Count 0.05 10^3/uL (0.0-0.2); Absolute Eosinophil Count 0.17 10^3/uL (0.0-0.7); Absolute Lymphocyte Count 1.91 10^3/uL (1.2-3.4); Absolute Monocyte Count 0.52 10^3/uL (0.1-0.8); Absolute Neutrophil Count 3.62 10^3/uL (1.2-6.7); Basophils % 0.8; Eosinophils % 2.7; HCT 37.6 % (36.0-46.0); HGB 11.8 g/dL (11.2-15.7); Immature Grans % 0.6; Lymphocytes % 30.3; MCH 26.9 pg (27.0-33.0); MCHC 31.4 % (32.0-36.0); MCV 85.8 fL (80-95); MPV 9.6 fL (8.0-11.0); Monocytes % 8.2; Neutrophils % 57.4; Nucleated RBC 0 %; Platelet Count 277 10^3/uL (130-400); RBC 4.38 10^6/uL (3.93-5.22); RDW 15.3 % (11.7-14.6); RDW-SD 48.1 fL; WBC 6.31 10^3/uL (4.4-10.8)
[2021-07-28 10:19] LABS: ALT 26 U/L (14-59); AST 18 U/L (15-37); Albumin 3.3 g/dL (3.4-5.0); Alkaline Phosphatase 67 U/L (46-116); Anion Gap 10.4 mmol/L (3-11); BUN 13 mg/dL (7-18); Bilirubin, Total 0.3 mg/dL (0.2-1.0); CO2 24.6 mmol/L (21.0-32.0); CREATININE 0.9 mg/dL (0.55-1.02); Calcium 8.8 mg/dL (8.5-10.1); Chloride 109 mmol/L (98-107); Glucose 95 mg/dL (74-106); Potassium 3.5 mmol/L (3.5-5.1); Sodium 144 mmol/L (136-145); Total Protein 6.5 g/dL (6.4-8.2)
[2021-07-29 12:43] LABS: Cancer Ag 15-3 40 U/mL (<30)
[2021-08-04] MEDS: Normal Saline Flush 10 ML SYR IVP (08:15)
[2021-08-04 08:37] LABS: Abs Immature Grans 0.06 10^3/uL (0.0-0.06); Absolute Basophil Count 0.04 10^3/uL (0.0-0.2); Absolute Eosinophil Count 0.12 10^3/uL (0.0-0.7); Absolute Lymphocyte Count 1.73 10^3/uL (1.2-3.4); Absolute Monocyte Count 0.34 10^3/uL (0.1-0.8); Absolute Neutrophil Count 2.96 10^3/uL (1.2-6.7); Basophils % 0.8; Eosinophils % 2.3; HCT 36.8 % (36.0-46.0); HGB 11.4 g/dL (11.2-15.7); Immature Grans % 1.1; MCH 26.8 pg (27.0-33.0); MCV 86.4 fL (80-95); Monocytes % 6.5; Neutrophils % 56.3; Nucleated RBC 0 %; Platelet Count 240 10^3/uL (130-400); RBC 4.26 10^6/uL (3.93-5.22); RDW 14.7 % (11.7-14.6); RDW-SD 46.9 fL; WBC 5.25 10^3/uL (4.4-10.8)
[2021-08-04 08:53] LABS: ALT 23 U/L (14-59); AST 15 U/L (15-37); Albumin 3.2 g/dL (3.4-5.0); Alkaline Phosphatase 65 U/L (46-116); Anion Gap 8.1 mmol/L (3-11); BUN 14 mg/dL (7-18); Bilirubin, Total 0.3 mg/dL (0.2-1.0); CO2 24.9 mmol/L (21.0-32.0); CREATININE 0.7 mg/dL (0.55-1.02); Calcium 8.4 mg/dL (8.5-10.1); Chloride 109 mmol/L (98-107); Glucose 101 mg/dL (74-106); Potassium 3.6 mmol/L (3.5-5.1); Sodium 142 mmol/L (136-145); Total Protein 6.4 g/dL (6.4-8.2)
[2021-08-05 14:13] LABS: Cancer Ag 15-3 34 U/mL (<30)
[2021-08-11] MEDS: Normal Saline Flush 10 ML SYR IVP (08:34)
[2021-08-11 08:43] LABS: Abs Immature Grans 0.07 10^3/uL (0.0-0.06); Absolute Basophil Count 0.04 10^3/uL (0.0-0.2); Absolute Eosinophil Count 0.06 10^3/uL (0.0-0.7); Absolute Lymphocyte Count 1.58 10^3/uL (1.2-3.4); Absolute Monocyte Count 0.28 10^3/uL (0.1-0.8); Absolute Neutrophil Count 3.58 10^3/uL (1.2-6.7); Basophils % 0.7; Eosinophils % 1.1; HCT 36.4 % (36.0-46.0); HGB 11.6 g/dL (11.2-15.7); Immature Grans % 1.2; Lymphocytes % 28.2; MCH 27.5 pg (27.0-33.0); MCHC 31.9 % (32.0-36.0); MCV 86.3 fL (80-95); MPV 9.1 fL (8.0-11.0); Neutrophils % 63.8; Platelet Count 214 10^3/uL (130-400); RBC 4.22 10^6/uL (3.93-5.22); RDW 15.1 % (11.7-14.6); RDW-SD 47.7 fL; WBC 5.61 10^3/uL (4.4-10.8)
[2021-08-11 08:56] LABS: ALT 27 U/L (14-59); AST 18 U/L (15-37); Albumin 3.3 g/dL (3.4-5.0); Alkaline Phosphatase 68 U/L (46-116); Anion Gap 8.3 mmol/L (3-11); BUN 14 mg/dL (7-18); Bilirubin, Total 0.5 mg/dL (0.2-1.0); CO2 25.7 mmol/L (21.0-32.0); CREATININE 0.9 mg/dL (0.55-1.02); Calcium 8.6 mg/dL (8.5-10.1); Chloride 106 mmol/L (98-107); Glucose 114 mg/dL (74-106); Potassium 3.4 mmol/L (3.5-5.1); Sodium 140 mmol/L (136-145); Total Protein 6.6 g/dL (6.4-8.2)
[2021-08-12 17:49] LABS: Cancer Ag 15-3 34 U/mL (<30)
[2021-08-18] MEDS: Normal Saline Flush 10 ML SYR IVP (08:36)
[2021-08-18 08:45] LABS: Abs Immature Grans 0.06 10^3/uL (0.0-0.06); Absolute Basophil Count 0.04 10^3/uL (0.0-0.2); Absolute Eosinophil Count 0.07 10^3/uL (0.0-0.7); Absolute Lymphocyte Count 1.98 10^3/uL (1.2-3.4); Absolute Monocyte Count 0.29 10^3/uL (0.1-0.8); Absolute Neutrophil Count 2.93 10^3/uL (1.2-6.7); Basophils % 0.7; Eosinophils % 1.3; HCT 37.1 % (36.0-46.0); HGB 11.7 g/dL (11.2-15.7); Immature Grans % 1.1; Lymphocytes % 36.9; MCH 27.2 pg (27.0-33.0); MCHC 31.5 % (32.0-36.0); MCV 86.3 fL (80-95); MPV 9.3 fL (8.0-11.0); Monocytes % 5.4; Neutrophils % 54.6; Platelet Count 272 10^3/uL (130-400); RDW-SD 46.7 fL; WBC 5.37 10^3/uL (4.4-10.8)
[2021-08-18 08:59] LABS: ALT 31 U/L (14-59); AST 20 U/L (15-37); Albumin 3.4 g/dL (3.4-5.0); Alkaline Phosphatase 69 U/L (46-116); Anion Gap 6.9 mmol/L (3-11); BUN 19 mg/dL (7-18); Bilirubin, Total 0.4 mg/dL (0.2-1.0); CO2 27.1 mmol/L (21.0-32.0); Chloride 105 mmol/L (98-107); Estimated GFR 57.15 (mL/min/1.73m2); Glucose 118 mg/dL (74-106); Potassium 3.5 mmol/L (3.5-5.1); Sodium 139 mmol/L (136-145); Total Protein 6.7 g/dL (6.4-8.2)
== END 2021-08-22 23:59 | disposition home or self-care (01) ==
LOC: INF 04:43
PROVIDERS: PCP Physician Assistant Medical; Visit Provider Internal Medicine
DX: Z45.2 Encounter for adjustment and management of vascular access device (principal); C50.911 Malignant neoplasm of unspecified site of right female breast; Z17.0 Estrogen receptor positive status [ER+]; C50.912 Malignant neoplasm of unspecified site of left female breast
CPT/HCPCS: 36591; 80053; 86304; 85025; 86300

== ENCOUNTER → 2021-09-02 00:40 | Outpatient (CLI) | payer OTHER, SELFPAY ==
--- NOTE | 2021-09-02 10:45 | DI.NM_ITS ---
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 TECHNIQUE: Injected Dose: 25 mCi Tc-99m MDP Delayed Images: 2-3 hours. COMPARISON: [facility] BONE SCAN WHOLE BODY GRP from 03/02/2021 FINDINGS: There is again noted to be abnormal increased activity in the sternum, left side of L1, T4 and distal right femur. There is increased activity in the right elbow. The patient notes a recent elbow frac ture. Bilateral renal excretion is identified. IMPRESSION: 1. Stable areas of metastatic disease in T4, L1, sternum and distal right femur.. DATA REPOSITORY:
== END ==
PROVIDERS: PCP Physician Assistant Medical; Visit Provider Internal Medicine
DX: C50.911 Malignant neoplasm of unspecified site of right female breast (principal); C79.51 Secondary malignant neoplasm of bone; Z17.0 Estrogen receptor positive status [ER+]
CPT/HCPCS: 78306

== ENCOUNTER 2021-09-22 02:05 | Outpatient (RCR) | payer OTHER, SELFPAY ==
[2021-08-25 08:46] LABS: Abs Immature Grans 0.08 10^3/uL (0.0-0.06); Absolute Basophil Count 0.04 10^3/uL (0.0-0.2); Absolute Eosinophil Count 0.04 10^3/uL (0.0-0.7); Absolute Lymphocyte Count 1.73 10^3/uL (1.2-3.4); Absolute Monocyte Count 0.27 10^3/uL (0.1-0.8); Absolute Neutrophil Count 2.61 10^3/uL (1.2-6.7); Basophils % 0.8; Eosinophils % 0.8; HCT 36.1 % (36.0-46.0); HGB 11.5 g/dL (11.2-15.7); Immature Grans % 1.7; Lymphocytes % 36.3; MCH 27.6 pg (27.0-33.0); MCHC 31.9 % (32.0-36.0); MCV 87 fL (80-95); MPV 9.4 fL (8.0-11.0); Monocytes % 5.7; Neutrophils % 54.7; Platelet Count 271 10^3/uL (130-400); RBC 4.16 10^6/uL (3.93-5.22); RDW 15.3 % (11.7-14.6); WBC 4.77 10^3/uL (4.4-10.8)
[2021-08-25 08:58] LABS: ALT 40 U/L (14-59); AST 26 U/L (15-37); Albumin 3.2 g/dL (3.4-5.0); Alkaline Phosphatase 60 U/L (46-116); Anion Gap 8.1 mmol/L (3-11); BUN 17 mg/dL (7-18); Bilirubin, Total 0.4 mg/dL (0.2-1.0); CO2 26.9 mmol/L (21.0-32.0); Calcium 8.6 mg/dL (8.5-10.1); Chloride 106 mmol/L (98-107); Estimated GFR 57.15 (mL/min/1.73m2); Glucose 126 mg/dL (74-106); Potassium 3.4 mmol/L (3.5-5.1); Sodium 141 mmol/L (136-145); Total Protein 6.6 g/dL (6.4-8.2)
[2021-08-25] MEDS: Normal Saline Flush 10 ML SYR IVP (09:05)
[2021-09-01 08:42] LABS: Absolute Basophil Count 0.02 10^3/uL (0.0-0.2); Absolute Eosinophil Count 0.03 10^3/uL (0.0-0.7); Absolute Lymphocyte Count 1.23 10^3/uL (1.2-3.4); Absolute Monocyte Count 0.33 10^3/uL (0.1-0.8); Basophils % 0.6; Eosinophils % 0.8; HCT 35.6 % (36.0-46.0); Immature Grans % 2.8; Lymphocytes % 34.1; MCH 27.4 pg (27.0-33.0); MCHC 30.9 % (32.0-36.0); MCV 89 fL (80-95); MPV 9.5 fL (8.0-11.0); Monocytes % 9.1; Neutrophils % 52.6; Platelet Count 236 10^3/uL (130-400); RBC 4.02 10^6/uL (3.93-5.22); RDW 15.6 % (11.7-14.6); RDW-SD 49.9 fL; WBC 3.61 10^3/uL (4.4-10.8)
[2021-09-01 08:59] LABS: ALT 31 U/L (14-59); AST 20 U/L (15-37); Albumin 3.3 g/dL (3.4-5.0); Alkaline Phosphatase 59 U/L (46-116); Anion Gap 6.7 mmol/L (3-11); BUN 13 mg/dL (7-18); Bilirubin, Total 0.3 mg/dL (0.2-1.0); CO2 26.3 mmol/L (21.0-32.0); Calcium 8.7 mg/dL (8.5-10.1); Chloride 108 mmol/L (98-107); Estimated GFR 57.15 (mL/min/1.73m2); Glucose 127 mg/dL (74-106); Potassium 3.5 mmol/L (3.5-5.1); Sodium 141 mmol/L (136-145); Total Protein 6.4 g/dL (6.4-8.2)
[2021-09-01] MEDS: Normal Saline Flush 10 ML SYR IVP (09:19)
[2021-09-02 16:43] LABS: Cancer Ag 15-3 29 U/mL (<30)
[2021-09-08] MEDS: Normal Saline Flush 10 ML SYR IVP (08:46)
[2021-09-08 08:53] LABS: Abs Immature Grans 0.17 10^3/uL (0.0-0.06); Absolute Basophil Count 0.03 10^3/uL (0.0-0.2); Absolute Eosinophil Count 0.02 10^3/uL (0.0-0.7); Absolute Lymphocyte Count 1.77 10^3/uL (1.2-3.4); Basophils % 0.6; Eosinophils % 0.4; HCT 36.2 % (36.0-46.0); HGB 11.5 g/dL (11.2-15.7); Immature Grans % 3.4; Lymphocytes % 35.5; MCH 27.4 pg (27.0-33.0); MCHC 31.8 % (32.0-36.0); MCV 86 fL (80-95); MPV 9.3 fL (8.0-11.0); Neutrophils % 54.1; Platelet Count 245 10^3/uL (130-400); RDW 15.4 % (11.7-14.6); WBC 4.99 10^3/uL (4.4-10.8)
[2021-09-08 09:31] LABS: ALT 28 U/L (14-59); AST 16 U/L (15-37); Albumin 3.3 g/dL (3.4-5.0); Alkaline Phosphatase 60 U/L (46-116); Anion Gap 7.3 mmol/L (3-11); BUN 16 mg/dL (7-18); Bilirubin, Total 0.3 mg/dL (0.2-1.0); CO2 24.7 mmol/L (21.0-32.0); CREATININE 0.8 mg/dL (0.55-1.02); Calcium 8.6 mg/dL (8.5-10.1); Chloride 109 mmol/L (98-107); Glucose 128 mg/dL (74-106); Potassium 3.8 mmol/L (3.5-5.1); Sodium 141 mmol/L (136-145); Total Protein 6.3 g/dL (6.4-8.2)
[2021-09-15] MEDS: Normal Saline Flush 10 ML SYR IVP (08:44)
[2021-09-15 08:49] LABS: Abs Immature Grans 0.18 10^3/uL (0.0-0.06); Absolute Basophil Count 0.04 10^3/uL (0.0-0.2); Absolute Eosinophil Count 0.06 10^3/uL (0.0-0.7); Absolute Lymphocyte Count 1.65 10^3/uL (1.2-3.4); Absolute Monocyte Count 0.52 10^3/uL (0.1-0.8); Absolute Neutrophil Count 3.35 10^3/uL (1.2-6.7); Basophils % 0.7; HCT 32.8 % (36.0-46.0); HGB 10.4 g/dL (11.2-15.7); Immature Grans % 3.1; Lymphocytes % 28.4; MCH 27.9 pg (27.0-33.0); MCHC 31.7 % (32.0-36.0); MCV 88 fL (80-95); MPV 9.3 fL (8.0-11.0); Neutrophils % 57.8; Platelet Count 251 10^3/uL (130-400); RBC 3.73 10^6/uL (3.93-5.22); RDW 15.6 % (11.7-14.6); RDW-SD 49.5 fL
[2021-09-15 09:08] LABS: ALT 22 U/L (14-59); AST 14 U/L (15-37); Albumin 2.9 g/dL (3.4-5.0); Alkaline Phosphatase 59 U/L (46-116); Anion Gap 7.6 mmol/L (3-11); BUN 13 mg/dL (7-18); Bilirubin, Total 0.3 mg/dL (0.2-1.0); CO2 25.4 mmol/L (21.0-32.0); Calcium 8.7 mg/dL (8.5-10.1); Chloride 109 mmol/L (98-107); Estimated GFR 57.15 (mL/min/1.73m2); Glucose 101 mg/dL (74-106); Potassium 3.6 mmol/L (3.5-5.1); Sodium 142 mmol/L (136-145); Total Protein 5.9 g/dL (6.4-8.2)
[2021-09-22] MEDS: Normal Saline Flush 10 ML SYR IVP (09:00)
[2021-09-22 09:28] LABS: Abs Immature Grans 0.25 10^3/uL (0.0-0.06); Absolute Basophil Count 0.05 10^3/uL (0.0-0.2); Absolute Eosinophil Count 0.06 10^3/uL (0.0-0.7); Absolute Lymphocyte Count 1.72 10^3/uL (1.2-3.4); Absolute Monocyte Count 0.41 10^3/uL (0.1-0.8); Absolute Neutrophil Count 3.57 10^3/uL (1.2-6.7); Basophils % 0.8; HCT 36.3 % (36.0-46.0); HGB 11.2 g/dL (11.2-15.7); Immature Grans % 4.1; Lymphocytes % 28.4; MCH 27.3 pg (27.0-33.0); MCHC 30.9 % (32.0-36.0); MCV 88 fL (80-95); MPV 9.4 fL (8.0-11.0); Monocytes % 6.8; Neutrophils % 58.9; Nucleated RBC 0.3 % (0.0-0.3); Platelet Count 296 10^3/uL (130-400); RBC 4.11 10^6/uL (3.93-5.22); WBC 6.06 10^3/uL (4.4-10.8)
[2021-09-22 09:36] LABS: ALT 26 U/L (14-59); AST 14 U/L (15-37); Albumin 3.1 g/dL (3.4-5.0); Alkaline Phosphatase 57 U/L (46-116); Anion Gap 8.3 mmol/L (3-11); BUN 15 mg/dL (7-18); Bilirubin, Total 0.3 mg/dL (0.2-1.0); CO2 24.7 mmol/L (21.0-32.0); CREATININE 0.9 mg/dL (0.55-1.02); Calcium 8.4 mg/dL (8.5-10.1); Chloride 109 mmol/L (98-107); Glucose 106 mg/dL (74-106); Potassium 3.9 mmol/L (3.5-5.1); Sodium 142 mmol/L (136-145); Total Protein 6.2 g/dL (6.4-8.2)
== END 2021-09-22 23:59 | disposition home or self-care (01) ==
LOC: INF 02:05
PROVIDERS: PCP Physician Assistant Medical; Visit Provider Internal Medicine
DX: Z45.2 Encounter for adjustment and management of vascular access device (principal); C50.911 Malignant neoplasm of unspecified site of right female breast; Z17.0 Estrogen receptor positive status [ER+]; C50.912 Malignant neoplasm of unspecified site of left female breast
CPT/HCPCS: 36591; 80053; 86304; 85025; 86300

== ENCOUNTER 2021-10-20 02:23 | Outpatient (RCR) | payer OTHER, SELFPAY ==
[2021-09-29] MEDS: Normal Saline Flush 10 ML SYR IVP (08:59)
[2021-09-29 09:07] LABS: Abs Immature Grans 0.04 10^3/uL (0.0-0.06); Absolute Basophil Count 0.05 10^3/uL (0.0-0.2); Absolute Eosinophil Count 0.05 10^3/uL (0.0-0.7); Absolute Lymphocyte Count 1.41 10^3/uL (1.2-3.4); Basophils % 0.8; Eosinophils % 0.8; HCT 33.6 % (36.0-46.0); HGB 10.9 g/dL (11.2-15.7); Immature Grans % 0.7; Lymphocytes % 23.7; MCH 27.9 pg (27.0-33.0); MCHC 32.4 % (32.0-36.0); MCV 86 fL (80-95); MPV 9.2 fL (8.0-11.0); Monocytes % 10.1; Neutrophils % 63.9; Platelet Count 219 10^3/uL (130-400); RDW 15.6 % (11.7-14.6); WBC 5.95 10^3/uL (4.4-10.8)
[2021-09-29 09:16] LABS: ALT 21 U/L (14-59); AST 15 U/L (15-37); Alkaline Phosphatase 62 U/L (46-116); Anion Gap 8.8 mmol/L (3-11); BUN 13 mg/dL (7-18); Bilirubin, Total 0.3 mg/dL (0.2-1.0); CO2 26.2 mmol/L (21.0-32.0); CREATININE 0.9 mg/dL (0.55-1.02); Calcium 8.3 mg/dL (8.5-10.1); Chloride 105 mmol/L (98-107); Glucose 120 mg/dL (74-106); Potassium 3.7 mmol/L (3.5-5.1); Sodium 140 mmol/L (136-145)
[2021-10-01 11:25] LABS: Cancer Ag 15-3 24 U/mL (<30)
[2021-10-13] MEDS: Normal Saline Flush 10 ML SYR IVP (08:45)
[2021-10-13 09:17] LABS: Abs Immature Grans 0.04 10^3/uL (0.0-0.06); Absolute Basophil Count 0.04 10^3/uL (0.0-0.2); Absolute Eosinophil Count 0.21 10^3/uL (0.0-0.7); Absolute Lymphocyte Count 2.01 10^3/uL (1.2-3.4); Absolute Monocyte Count 0.44 10^3/uL (0.1-0.8); Basophils % 0.6; Eosinophils % 3.1; HCT 38.3 % (36.0-46.0); Immature Grans % 0.6; Lymphocytes % 29.4; MCH 27.1 pg (27.0-33.0); MCHC 31.3 % (32.0-36.0); MCV 87 fL (80-95); MPV 9.5 fL (8.0-11.0); Monocytes % 6.4; Neutrophils % 59.9; Platelet Count 239 10^3/uL (130-400); RBC 4.42 10^6/uL (3.93-5.22); RDW 14.8 % (11.7-14.6); RDW-SD 47.4 fL; WBC 6.84 10^3/uL (4.4-10.8)
[2021-10-13 09:42] LABS: ALT 20 U/L (14-59); AST 14 U/L (15-37); Albumin 3.2 g/dL (3.4-5.0); Alkaline Phosphatase 64 U/L (46-116); Anion Gap 8.6 mmol/L (3-11); BUN 18 mg/dL (7-18); Bilirubin, Total 0.3 mg/dL (0.2-1.0); CO2 25.4 mmol/L (21.0-32.0); Calcium 8.4 mg/dL (8.5-10.1); Chloride 105 mmol/L (98-107); Estimated GFR 57.15 (mL/min/1.73m2); Glucose 119 mg/dL (74-106); Potassium 3.6 mmol/L (3.5-5.1); Sodium 139 mmol/L (136-145); Total Protein 6.5 g/dL (6.4-8.2)
[2021-10-15 10:05] LABS: Cancer Ag 15-3 23 U/mL (<30)
[2021-10-20] MEDS: Normal Saline Flush 10 ML SYR IVP (08:33)
[2021-10-20 08:39] LABS: Abs Immature Grans 0.02 10^3/uL (0.0-0.06); Absolute Basophil Count 0.03 10^3/uL (0.0-0.2); Absolute Eosinophil Count 0.14 10^3/uL (0.0-0.7); Absolute Lymphocyte Count 1.56 10^3/uL (1.2-3.4); Absolute Monocyte Count 0.49 10^3/uL (0.1-0.8); Absolute Neutrophil Count 3.86 10^3/uL (1.2-6.7); Basophils % 0.5; Eosinophils % 2.3; HGB 11.4 g/dL (11.2-15.7); Immature Grans % 0.3; Lymphocytes % 25.6; MCHC 31.7 % (32.0-36.0); MCV 85 fL (80-95); Neutrophils % 63.3; Platelet Count 220 10^3/uL (130-400); RBC 4.22 10^6/uL (3.93-5.22); RDW 14.5 % (11.7-14.6); RDW-SD 44.8 fL
[2021-10-20 08:53] LABS: ALT 22 U/L (14-59); AST 16 U/L (15-37); Albumin 3.1 g/dL (3.4-5.0); Alkaline Phosphatase 63 U/L (46-116); Anion Gap 5.9 mmol/L (3-11); BUN 11 mg/dL (7-18); Bilirubin, Total 0.3 mg/dL (0.2-1.0); CO2 26.1 mmol/L (21.0-32.0); CREATININE 0.9 mg/dL (0.55-1.02); Calcium 8.6 mg/dL (8.5-10.1); Chloride 109 mmol/L (98-107); Glucose 112 mg/dL (74-106); Potassium 3.8 mmol/L (3.5-5.1); Sodium 141 mmol/L (136-145); Total Protein 6.3 g/dL (6.4-8.2)
[2021-10-21 18:01] LABS: Cancer Ag 15-3 23 U/mL (<30)
== END 2021-10-22 23:59 | disposition home or self-care (01) ==
LOC: INF 02:23
PROVIDERS: PCP Physician Assistant Medical; Visit Provider Internal Medicine
DX: Z45.2 Encounter for adjustment and management of vascular access device (principal); C50.911 Malignant neoplasm of unspecified site of right female breast; Z17.0 Estrogen receptor positive status [ER+]; C50.912 Malignant neoplasm of unspecified site of left female breast
CPT/HCPCS: 36591; 80053; 86304; 85025; 86300

== ENCOUNTER 2021-11-03 02:06 | Outpatient (RCR) | payer OTHER, SELFPAY ==
[2021-11-03] MEDS: Normal Saline Flush 10 ML SYR IVP (08:30)
[2021-11-03 08:53] LABS: Abs Immature Grans 0.02 10^3/uL (0.0-0.06); Absolute Basophil Count 0.04 10^3/uL (0.0-0.2); Absolute Eosinophil Count 0.12 10^3/uL (0.0-0.7); Absolute Lymphocyte Count 1.79 10^3/uL (1.2-3.4); Absolute Monocyte Count 0.43 10^3/uL (0.1-0.8); Absolute Neutrophil Count 3.28 10^3/uL (1.2-6.7); Basophils % 0.7; Eosinophils % 2.1; HCT 36.4 % (36.0-46.0); HGB 11.4 g/dL (11.2-15.7); Immature Grans % 0.4; Lymphocytes % 31.5; MCH 27.1 pg (27.0-33.0); MCHC 31.3 % (32.0-36.0); MCV 87 fL (80-95); Monocytes % 7.6; Neutrophils % 57.7; Platelet Count 218 10^3/uL (130-400); RBC 4.21 10^6/uL (3.93-5.22); RDW 14.2 % (11.7-14.6); RDW-SD 45.3 fL; WBC 5.68 10^3/uL (4.4-10.8)
[2021-11-03 09:10] LABS: ALT 21 U/L (14-59); AST 17 U/L (15-37); Albumin 3.2 g/dL (3.4-5.0); Alkaline Phosphatase 55 U/L (46-116); Anion Gap 10.3 mmol/L (3-11); BUN 21 mg/dL (7-18); Bilirubin, Total 0.3 mg/dL (0.2-1.0); CO2 25.7 mmol/L (21.0-32.0); CREATININE 0.9 mg/dL (0.55-1.02); Calcium 8.6 mg/dL (8.5-10.1); Chloride 108 mmol/L (98-107); Glucose 105 mg/dL (74-106); Potassium 3.5 mmol/L (3.5-5.1); Sodium 144 mmol/L (136-145); Total Protein 6.3 g/dL (6.4-8.2)
[2021-11-04 14:21] LABS: Cancer Ag 15-3 22 U/mL (<30)
== END 2021-11-22 23:59 | disposition home or self-care (01) ==
LOC: INF 02:06
PROVIDERS: PCP Physician Assistant Medical; Visit Provider Internal Medicine
DX: C50.911 Malignant neoplasm of unspecified site of right female breast (principal); Z17.0 Estrogen receptor positive status [ER+]; C50.912 Malignant neoplasm of unspecified site of left female breast; Z45.2 Encounter for adjustment and management of vascular access device
CPT/HCPCS: 36591; 80053; 86304; 85025; 86300

== ENCOUNTER 2021-12-15 02:34 | Outpatient (RCR) | payer SELFPAY ==
[2021-11-24] MEDS: Normal Saline Flush 10 ML SYR IVP (08:44)
[2021-11-24 08:49] LABS: Abs Immature Grans 0.01 10^3/uL (0.0-0.06); Absolute Basophil Count 0.04 10^3/uL (0.0-0.2); Absolute Eosinophil Count 0.13 10^3/uL (0.0-0.7); Absolute Lymphocyte Count 2.04 10^3/uL (1.2-3.4); Absolute Monocyte Count 0.45 10^3/uL (0.1-0.8); Basophils % 0.6; Eosinophils % 1.9; HCT 38.8 % (36.0-46.0); HGB 12.4 g/dL (11.2-15.7); Immature Grans % 0.1; Lymphocytes % 29.7; MCH 27.3 pg (27.0-33.0); MCV 85 fL (80-95); MPV 9.3 fL (8.0-11.0); Monocytes % 6.6; Neutrophils % 61.1; Platelet Count 211 10^3/uL (130-400); RBC 4.55 10^6/uL (3.93-5.22); RDW 13.3 % (11.7-14.6); RDW-SD 41.5 fL; WBC 6.87 10^3/uL (4.4-10.8)
[2021-11-24 09:04] LABS: ALT 21 U/L (14-59); AST 13 U/L (15-37); Albumin 3.3 g/dL (3.4-5.0); Alkaline Phosphatase 66 U/L (46-116); Anion Gap 5.6 mmol/L (3-11); BUN 18 mg/dL (7-18); Bilirubin, Total 0.2 mg/dL (0.2-1.0); CO2 24.4 mmol/L (21.0-32.0); CREATININE 0.9 mg/dL (0.55-1.02); Calcium 8.9 mg/dL (8.5-10.1); Chloride 106 mmol/L (98-107); Glucose 113 mg/dL (74-106); Potassium 4.1 mmol/L (3.5-5.1); Sodium 136 mmol/L (136-145)
[2021-11-25 15:17] LABS: Cancer Ag 15-3 22 U/mL (<30)
[2021-12-15] MEDS: Normal Saline Flush 10 ML SYR IVP (08:25)
[2021-12-15 08:44] LABS: Abs Immature Grans 0.02 10^3/uL (0.0-0.06); Absolute Basophil Count 0.03 10^3/uL (0.0-0.2); Absolute Eosinophil Count 0.14 10^3/uL (0.0-0.7); Absolute Lymphocyte Count 1.85 10^3/uL (1.2-3.4); Absolute Monocyte Count 0.36 10^3/uL (0.1-0.8); Absolute Neutrophil Count 3.53 10^3/uL (1.2-6.7); Basophils % 0.5; Eosinophils % 2.4; HCT 36.9 % (36.0-46.0); HGB 11.6 g/dL (11.2-15.7); Immature Grans % 0.3; Lymphocytes % 31.2; MCH 26.4 pg (27.0-33.0); MCHC 31.4 % (32.0-36.0); MCV 84 fL (80-95); MPV 9.3 fL (8.0-11.0); Monocytes % 6.1; Neutrophils % 59.5; Platelet Count 199 10^3/uL (130-400); RBC 4.39 10^6/uL (3.93-5.22); RDW 13.5 % (11.7-14.6); WBC 5.93 10^3/uL (4.4-10.8)
[2021-12-15 09:00] LABS: ALT 17 U/L (14-59); AST 13 U/L (15-37); Albumin 3.3 g/dL (3.4-5.0); Alkaline Phosphatase 66 U/L (46-116); Anion Gap 7.7 mmol/L (3-11); BUN 20 mg/dL (7-18); Bilirubin, Total 0.3 mg/dL (0.2-1.0); CO2 28.3 mmol/L (21.0-32.0); CREATININE 1.1 mg/dL (0.55-1.02); Chloride 108 mmol/L (98-107); Glucose 127 mg/dL (74-106); Potassium 3.8 mmol/L (3.5-5.1); Sodium 144 mmol/L (136-145); Total Protein 6.7 g/dL (6.4-8.2)
[2021-12-16 13:08] LABS: Cancer Ag 15-3 19 U/mL (<30)
== END 2021-12-23 23:59 | disposition home or self-care (01) ==
LOC: INF 02:34
PROVIDERS: PCP Physician Assistant Medical; Visit Provider Internal Medicine
DX: Z45.2 Encounter for adjustment and management of vascular access device (principal); Z17.0 Estrogen receptor positive status [ER+]; C50.912 Malignant neoplasm of unspecified site of left female breast
CPT/HCPCS: 36591; 80053; 86304; 85025; 86300

== ENCOUNTER 2022-02-16 02:15 | Outpatient (RCR) | payer MEDICAID, SELFPAY ==
[2022-01-26] MEDS: Normal Saline Flush 10 ML SYR IVP (09:42)
[2022-01-26] MEDS: Heparin 500 UNITS/5 ML SYRINGE IVP (09:43)
[2022-01-26 09:55] LABS: Abs Immature Grans 0.02 10^3/uL (0.0-0.06); Absolute Basophil Count 0.03 10^3/uL (0.0-0.2); Absolute Eosinophil Count 0.13 10^3/uL (0.0-0.7); Absolute Lymphocyte Count 2.29 10^3/uL (1.2-3.4); Absolute Monocyte Count 0.49 10^3/uL (0.1-0.8); Absolute Neutrophil Count 3.52 10^3/uL (1.2-6.7); Basophils % 0.5; HGB 11.8 g/dL (11.2-15.7); Immature Grans % 0.3; Lymphocytes % 35.3; MCH 26.2 pg (27.0-33.0); MCHC 31.9 % (32.0-36.0); MCV 82 fL (80-95); Monocytes % 7.6; Neutrophils % 54.3; Platelet Count 196 10^3/uL (130-400); RBC 4.51 10^6/uL (3.93-5.22); RDW 14.1 % (11.7-14.6); RDW-SD 41.4 fL; WBC 6.48 10^3/uL (4.4-10.8)
[2022-01-26 10:10] LABS: ALT 21 U/L (14-59); AST 14 U/L (15-37); Albumin 3.3 g/dL (3.4-5.0); Alkaline Phosphatase 74 U/L (46-116); Anion Gap 7.3 mmol/L (3-11); BUN 16 mg/dL (7-18); Bilirubin, Total 0.2 mg/dL (0.2-1.0); CO2 29.7 mmol/L (21.0-32.0); Calcium 8.9 mg/dL (8.5-10.1); Chloride 104 mmol/L (98-107); Estimated GFR 65.71 (mL/min/1.73m2); Glucose 90 mg/dL (74-106); Potassium 3.8 mmol/L (3.5-5.1); Sodium 141 mmol/L (136-145); Total Protein 6.8 g/dL (6.4-8.2)
[2022-01-27 15:52] LABS: Cancer Ag 15-3 20 U/mL (<30)
[2022-02-16] MEDS: Normal Saline Flush 10 ML SYR IVP (09:44)
[2022-02-16 09:54] LABS: Abs Immature Grans 0.02 10^3/uL (0.0-0.06); Absolute Basophil Count 0.04 10^3/uL (0.0-0.2); Absolute Eosinophil Count 0.13 10^3/uL (0.0-0.7); Absolute Lymphocyte Count 1.88 10^3/uL (1.2-3.4); Absolute Monocyte Count 0.43 10^3/uL (0.1-0.8); Absolute Neutrophil Count 4.31 10^3/uL (1.2-6.7); Basophils % 0.6; Eosinophils % 1.9; HCT 38.1 % (36.0-46.0); HGB 12.1 g/dL (11.2-15.7); Immature Grans % 0.3; Lymphocytes % 27.6; MCH 26.2 pg (27.0-33.0); MCHC 31.8 % (32.0-36.0); MCV 83 fL (80-95); MPV 9.3 fL (8.0-11.0); Monocytes % 6.3; Neutrophils % 63.3; Platelet Count 222 10^3/uL (130-400); RBC 4.61 10^6/uL (3.93-5.22); RDW 14.6 % (11.7-14.6); RDW-SD 44.3 fL; WBC 6.81 10^3/uL (4.4-10.8)
[2022-02-16 10:07] LABS: ALT 21 U/L (14-59); AST 13 U/L (15-37); Albumin 3.5 g/dL (3.4-5.0); Alkaline Phosphatase 78 U/L (46-116); Anion Gap 8.9 mmol/L (3-11); BUN 18 mg/dL (7-18); Bilirubin, Total 0.3 mg/dL (0.2-1.0); CO2 27.1 mmol/L (21.0-32.0); Calcium 9.1 mg/dL (8.5-10.1); Chloride 106 mmol/L (98-107); Estimated GFR 65.71 (mL/min/1.73m2); Glucose 124 mg/dL (74-106); Potassium 3.8 mmol/L (3.5-5.1); Sodium 142 mmol/L (136-145); Total Protein 7.1 g/dL (6.4-8.2)
[2022-02-17 14:11] LABS: Cancer Ag 15-3 21 U/mL (<30)
== END 2022-02-22 23:59 | disposition home or self-care (01) ==
LOC: INF 02:15
PROVIDERS: PCP Physician Assistant Medical; Visit Provider Internal Medicine
DX: Z45.2 Encounter for adjustment and management of vascular access device (principal); C50.919 Malignant neoplasm of unspecified site of unspecified female breast; C79.51 Secondary malignant neoplasm of bone
CPT/HCPCS: 36591; 80053; 86304; 85025; 86300

== ENCOUNTER 2022-03-23 03:27 | Outpatient (RCR) | payer MEDICAID, SELFPAY ==
[2022-03-02] MEDS: Normal Saline Flush 10 ML SYR IVP (10:16)
[2022-03-02 10:20] LABS: Abs Immature Grans 0.02 10^3/uL (0.0-0.06); Absolute Basophil Count 0.02 10^3/uL (0.0-0.2); Absolute Eosinophil Count 0.04 10^3/uL (0.0-0.7); Absolute Lymphocyte Count 1.05 10^3/uL (1.2-3.4); Absolute Monocyte Count 0.45 10^3/uL (0.1-0.8); Absolute Neutrophil Count 4.92 10^3/uL (1.2-6.7); Basophils % 0.3; Eosinophils % 0.6; HCT 37.3 % (36.0-46.0); HGB 11.8 g/dL (11.2-15.7); Immature Grans % 0.3; Lymphocytes % 16.2; MCH 26.5 pg (27.0-33.0); MCHC 31.6 % (32.0-36.0); MCV 84 fL (80-95); Monocytes % 6.9; Neutrophils % 75.7; Platelet Count 202 10^3/uL (130-400); RBC 4.46 10^6/uL (3.93-5.22); RDW 14.6 % (11.7-14.6); RDW-SD 44.8 fL
[2022-03-02 10:42] LABS: ALT 16 U/L (14-59); AST 13 U/L (15-37); Albumin 3.3 g/dL (3.4-5.0); Alkaline Phosphatase 73 U/L (46-116); Anion Gap 8.4 mmol/L (3-11); BUN 15 mg/dL (7-18); Bilirubin, Total 0.3 mg/dL (0.2-1.0); CO2 25.6 mmol/L (21.0-32.0); CREATININE 1.1 mg/dL (0.55-1.02); Calcium 8.5 mg/dL (8.5-10.1); Chloride 107 mmol/L (98-107); Creatine Kinase 62 U/L (26-192); Estimated GFR 58.61 (mL/min/1.73m2); Glucose 120 mg/dL (74-106); NT-proBNP 457 pg/mL (<300); Potassium 3.8 mmol/L (3.5-5.1); Sodium 141 mmol/L (136-145); Total Protein 6.9 g/dL (6.4-8.2); Troponin I < 50 ng/L (<or=60)
[2022-03-04 11:09] LABS: Cancer Ag 15-3 22 U/mL (<30)
[2022-03-23] MEDS: Normal Saline Flush 10 ML SYR IVP (08:41)
[2022-03-23 08:51] LABS: Abs Immature Grans 0.02 10^3/uL (0.0-0.06); Absolute Basophil Count 0.04 10^3/uL (0.0-0.2); Absolute Eosinophil Count 0.14 10^3/uL (0.0-0.7); Absolute Lymphocyte Count 2.01 10^3/uL (1.2-3.4); Absolute Monocyte Count 0.41 10^3/uL (0.1-0.8); Absolute Neutrophil Count 4.08 10^3/uL (1.2-6.7); Basophils % 0.6; Eosinophils % 2.1; HCT 39.1 % (36.0-46.0); HGB 12.2 g/dL (11.2-15.7); Immature Grans % 0.3; MCH 26.3 pg (27.0-33.0); MCHC 31.2 % (32.0-36.0); MCV 84 fL (80-95); MPV 9.2 fL (8.0-11.0); Monocytes % 6.1; Neutrophils % 60.9; Platelet Count 223 10^3/uL (130-400); RBC 4.63 10^6/uL (3.93-5.22); RDW 14.2 % (11.7-14.6); RDW-SD 43.3 fL
[2022-03-23 09:16] LABS: ALT 20 U/L (14-59); AST 14 U/L (15-37); Albumin 3.4 g/dL (3.4-5.0); Alkaline Phosphatase 81 U/L (46-116); Anion Gap 8.6 mmol/L (3-11); BUN 20 mg/dL (7-18); Bilirubin, Total 0.3 mg/dL (0.2-1.0); CO2 27.4 mmol/L (21.0-32.0); CREATININE 1.1 mg/dL (0.55-1.02); Calcium 8.7 mg/dL (8.5-10.1); Chloride 104 mmol/L (98-107); Estimated GFR 58.61 (mL/min/1.73m2); Glucose 135 mg/dL (74-106); NT-proBNP 64 pg/mL (<300); Potassium 3.3 mmol/L (3.5-5.1); Sodium 140 mmol/L (136-145); Total Protein 7.1 g/dL (6.4-8.2)
[2022-03-24 14:43] LABS: Cancer Ag 15-3 24 U/mL (<30)
== END 2022-03-24 23:59 | disposition home or self-care (01) ==
LOC: INF 03:27
PROVIDERS: PCP Physician Assistant Medical; Visit Provider Internal Medicine
DX: Z45.2 Encounter for adjustment and management of vascular access device (principal); C50.912 Malignant neoplasm of unspecified site of left female breast; I50.1 Left ventricular failure, unspecified; C79.51 Secondary malignant neoplasm of bone
CPT/HCPCS: 36591; 80053; 82550; 86304; 83880; 84484; 85025; 86300

== ENCOUNTER 2022-04-13 02:00 | Outpatient (RCR) | payer MEDICAID, SELFPAY ==
[2022-04-13 09:13] LABS: Abs Immature Grans 0.03 10^3/uL (0.0-0.06); Absolute Basophil Count 0.06 10^3/uL (0.0-0.2); Absolute Eosinophil Count 0.17 10^3/uL (0.0-0.7); Absolute Lymphocyte Count 2.13 10^3/uL (1.2-3.4); Absolute Monocyte Count 0.51 10^3/uL (0.1-0.8); Absolute Neutrophil Count 3.97 10^3/uL (1.2-6.7); Basophils % 0.9; Eosinophils % 2.5; HCT 37.5 % (36.0-46.0); HGB 11.8 g/dL (11.2-15.7); Immature Grans % 0.4; MCH 26.9 pg (27.0-33.0); MCHC 31.5 % (32.0-36.0); MCV 85 fL (80-95); Monocytes % 7.4; Neutrophils % 57.8; Platelet Count 240 10^3/uL (130-400); RBC 4.39 10^6/uL (3.93-5.22); RDW 13.5 % (11.7-14.6); RDW-SD 42.5 fL; WBC 6.87 10^3/uL (4.4-10.8)
[2022-04-13] MEDS: Normal Saline Flush 10 ML SYR IVP (09:14)
[2022-04-13 09:33] LABS: ALT 21 U/L (14-59); AST 19 U/L (15-37); Albumin 3.3 g/dL (3.4-5.0); Alkaline Phosphatase 78 U/L (46-116); Anion Gap 7.5 mmol/L (3-11); BUN 20 mg/dL (7-18); Bilirubin, Total 0.2 mg/dL (0.2-1.0); CO2 27.5 mmol/L (21.0-32.0); CREATININE 1.2 mg/dL (0.55-1.02); Calcium 8.8 mg/dL (8.5-10.1); Chloride 107 mmol/L (98-107); Creatine Kinase 74 U/L (26-192); Estimated GFR 52.47 (mL/min/1.73m2); Glucose 119 mg/dL (74-106); NT-proBNP 89 pg/mL (<300); Potassium 3.7 mmol/L (3.5-5.1); Sodium 142 mmol/L (136-145); Troponin I < 50 ng/L (<or=60)
== END 2022-04-24 23:59 | disposition home or self-care (01) ==
LOC: INF 02:00
PROVIDERS: PCP Physician Assistant Medical; Visit Provider Internal Medicine
DX: C50.911 Malignant neoplasm of unspecified site of right female breast (principal); C79.51 Secondary malignant neoplasm of bone; I50.1 Left ventricular failure, unspecified; Z17.1 Estrogen receptor negative status [ER-]
CPT/HCPCS: 36591; 80053; 82550; 83880; 84484; 85025

== ENCOUNTER 2022-05-25 02:32 | Outpatient (RCR) | payer MEDICAID, SELFPAY ==
[2022-05-04] MEDS: Normal Saline Flush 10 ML SYR IVP (13:04)
[2022-05-04 13:07] LABS: Abs Immature Grans 0.03 10^3/uL (0.0-0.06); Absolute Basophil Count 0.05 10^3/uL (0.0-0.2); Absolute Eosinophil Count 0.14 10^3/uL (0.0-0.7); Absolute Lymphocyte Count 2.59 10^3/uL (1.2-3.4); Absolute Monocyte Count 0.52 10^3/uL (0.1-0.8); Absolute Neutrophil Count 4.17 10^3/uL (1.2-6.7); Basophils % 0.7; Eosinophils % 1.9; HCT 38.4 % (36.0-46.0); HGB 11.9 g/dL (11.2-15.7); Immature Grans % 0.4; Lymphocytes % 34.5; MCH 26.6 pg (27.0-33.0); MCV 86 fL (80-95); MPV 9.3 fL (8.0-11.0); Monocytes % 6.9; Neutrophils % 55.6; Platelet Count 224 10^3/uL (130-400); RBC 4.48 10^6/uL (3.93-5.22); RDW 13.3 % (11.7-14.6); RDW-SD 41.8 fL
[2022-05-04 13:29] LABS: ALT 18 U/L (14-59); AST 15 U/L (15-37); Albumin 3.5 g/dL (3.4-5.0); Alkaline Phosphatase 81 U/L (46-116); Anion Gap 7.8 mmol/L (3-11); BUN 17 mg/dL (7-18); Bilirubin, Total 0.3 mg/dL (0.2-1.0); CO2 27.2 mmol/L (21.0-32.0); CREATININE 1.1 mg/dL (0.55-1.02); Chloride 107 mmol/L (98-107); Creatine Kinase 55 U/L (26-192); Estimated GFR 58.24 (mL/min/1.73m2); Glucose 131 mg/dL (74-106); NT-proBNP 66 pg/mL (<300); Potassium 3.5 mmol/L (3.5-5.1); Sodium 142 mmol/L (136-145); Total Protein 7.3 g/dL (6.4-8.2)
[2022-05-25] MEDS: Normal Saline Flush 10 ML SYR IVP (09:30)
[2022-05-25 09:36] LABS: Abs Immature Grans 0.03 10^3/uL (0.0-0.06); Absolute Basophil Count 0.03 10^3/uL (0.0-0.2); Absolute Eosinophil Count 0.13 10^3/uL (0.0-0.7); Absolute Lymphocyte Count 2.12 10^3/uL (1.2-3.4); Absolute Monocyte Count 0.47 10^3/uL (0.1-0.8); Absolute Neutrophil Count 3.82 10^3/uL (1.2-6.7); Basophils % 0.5; HCT 37.3 % (36.0-46.0); HGB 11.9 g/dL (11.2-15.7); Immature Grans % 0.5; Lymphocytes % 32.1; MCH 26.5 pg (27.0-33.0); MCHC 31.9 % (32.0-36.0); MCV 83 fL (80-95); MPV 8.8 fL (8.0-11.0); Monocytes % 7.1; Neutrophils % 57.8; Platelet Count 220 10^3/uL (130-400); RBC 4.49 10^6/uL (3.93-5.22); RDW 13.1 % (11.7-14.6); RDW-SD 39.2 fL
[2022-05-25 10:02] LABS: ALT 20 U/L (14-59); AST 15 U/L (15-37); Albumin 3.3 g/dL (3.4-5.0); Alkaline Phosphatase 77 U/L (46-116); Anion Gap 5.7 mmol/L (3-11); BUN 15 mg/dL (7-18); Bilirubin, Total 0.3 mg/dL (0.2-1.0); CO2 29.3 mmol/L (21.0-32.0); Calcium 8.9 mg/dL (8.5-10.1); Chloride 107 mmol/L (98-107); Creatine Kinase 55 U/L (26-192); Glucose 101 mg/dL (74-106); NT-proBNP 108 pg/mL (<300); Potassium 3.8 mmol/L (3.5-5.1); Sodium 142 mmol/L (136-145); Total Protein 6.8 g/dL (6.4-8.2)
== END 2022-05-25 23:59 | disposition home or self-care (01) ==
LOC: INF 02:32
PROVIDERS: PCP Physician Assistant Medical; Visit Provider Internal Medicine
DX: C50.912 Malignant neoplasm of unspecified site of left female breast (principal); C79.51 Secondary malignant neoplasm of bone; I50.1 Left ventricular failure, unspecified; Z45.2 Encounter for adjustment and management of vascular access device
CPT/HCPCS: 36591; 80053; 82550; 83880; 85025

== ENCOUNTER 2022-07-06 01:59 | Outpatient (RCR) | payer MEDICAID, SELFPAY ==
[2022-07-06] MEDS: Normal Saline Flush 10 ML SYR IVP (08:56)
[2022-07-06 09:48] LABS: Abs Immature Grans 0.02 10^3/uL (0.0-0.06); Absolute Basophil Count 0.05 10^3/uL (0.0-0.2); Absolute Eosinophil Count 0.16 10^3/uL (0.0-0.7); Absolute Lymphocyte Count 2.45 10^3/uL (1.2-3.4); Absolute Neutrophil Count 3.41 10^3/uL (1.2-6.7); Basophils % 0.8; Eosinophils % 2.4; HGB 12.1 g/dL (11.2-15.7); Immature Grans % 0.3; Lymphocytes % 37.2; MCH 26.6 pg (27.0-33.0); MCV 86 fL (80-95); MPV 9.5 fL (8.0-11.0); Monocytes % 7.6; Neutrophils % 51.7; Platelet Count 239 10^3/uL (130-400); RBC 4.55 10^6/uL (3.93-5.22); RDW 13.6 % (11.7-14.6); RDW-SD 42.5 fL; WBC 6.59 10^3/uL (4.4-10.8)
[2022-07-06 10:16] LABS: ALT 20 U/L (14-59); AST 12 U/L (15-37); Albumin 3.3 g/dL (3.4-5.0); Alkaline Phosphatase 78 U/L (46-116); Anion Gap 6.5 mmol/L (3-11); BUN 13 mg/dL (7-18); Bilirubin, Total 0.2 mg/dL (0.2-1.0); CO2 28.5 mmol/L (21.0-32.0); Calcium 9.3 mg/dL (8.5-10.1); Chloride 107 mmol/L (98-107); Creatine Kinase 53 U/L (26-192); Glucose 120 mg/dL (74-106); NT-proBNP 150 pg/mL (<300); Potassium 3.9 mmol/L (3.5-5.1); Sodium 142 mmol/L (136-145); Total Protein 6.9 g/dL (6.4-8.2)
== END 2022-07-23 23:59 | disposition home or self-care (01) ==
LOC: INF 01:59
PROVIDERS: PCP Physician Assistant Medical; Visit Provider Internal Medicine
DX: Z45.2 Encounter for adjustment and management of vascular access device (principal); C50.912 Malignant neoplasm of unspecified site of left female breast; C79.51 Secondary malignant neoplasm of bone
CPT/HCPCS: 36591; 80053; 82550; 83880; 85025

== ENCOUNTER 2022-08-17 02:18 | Outpatient (RCR) | payer MEDICAID, SELFPAY ==
[2022-07-27] MEDS: Normal Saline Flush 10 ML SYR IVP (10:16)
[2022-07-27 10:20] LABS: Abs Immature Grans 0.09 10^3/uL (0.0-0.06); Absolute Basophil Count 0.07 10^3/uL (0.0-0.2); Absolute Eosinophil Count 0.33 10^3/uL (0.0-0.7); Absolute Lymphocyte Count 2.62 10^3/uL (1.2-3.4); Absolute Monocyte Count 0.72 10^3/uL (0.1-0.8); Absolute Neutrophil Count 3.37 10^3/uL (1.2-6.7); Eosinophils % 4.6; HCT 36.2 % (36.0-46.0); HGB 11.8 g/dL (11.2-15.7); Immature Grans % 1.3; Lymphocytes % 36.4; MCH 26.6 pg (27.0-33.0); MCHC 32.6 % (32.0-36.0); MCV 82 fL (80-95); MPV 8.7 fL (8.0-11.0); Neutrophils % 46.7; Platelet Count 324 10^3/uL (130-400); RBC 4.44 10^6/uL (3.93-5.22); RDW 13.9 % (11.7-14.6); RDW-SD 40.6 fL
[2022-07-27 10:40] LABS: ALT 26 U/L (14-59); AST 19 U/L (15-37); Albumin 3.2 g/dL (3.4-5.0); Alkaline Phosphatase 81 U/L (46-116); Anion Gap 8.8 mmol/L (3-11); BUN 16 mg/dL (7-18); Bilirubin, Total 0.3 mg/dL (0.2-1.0); CO2 25.2 mmol/L (21.0-32.0); Calcium 8.9 mg/dL (8.5-10.1); Chloride 107 mmol/L (98-107); Glucose 104 mg/dL (74-106); NT-proBNP 162 pg/mL (<300); Potassium 3.6 mmol/L (3.5-5.1); Sodium 141 mmol/L (136-145); Total Protein 6.8 g/dL (6.4-8.2)
[2022-07-29 11:00] LABS: Cancer Ag 15-3 45 U/mL (<30)
[2022-08-17] MEDS: Normal Saline Flush 10 ML SYR IVP (10:48)
[2022-08-17 10:54] LABS: Abs Immature Grans 0.02 10^3/uL (0.0-0.06); Absolute Basophil Count 0.08 10^3/uL (0.0-0.2); Absolute Eosinophil Count 0.35 10^3/uL (0.0-0.7); Absolute Lymphocyte Count 2.24 10^3/uL (1.2-3.4); Absolute Monocyte Count 0.47 10^3/uL (0.1-0.8); Absolute Neutrophil Count 2.19 10^3/uL (1.2-6.7); Basophils % 1.5; Eosinophils % 6.5; HCT 36.3 % (36.0-46.0); HGB 11.7 g/dL (11.2-15.7); Immature Grans % 0.4; Lymphocytes % 41.9; MCH 26.7 pg (27.0-33.0); MCHC 32.2 % (32.0-36.0); MCV 83 fL (80-95); MPV 8.9 fL (8.0-11.0); Monocytes % 8.8; Neutrophils % 40.9; Platelet Count 281 10^3/uL (130-400); RBC 4.39 10^6/uL (3.93-5.22); RDW 14.8 % (11.7-14.6); RDW-SD 43.9 fL; WBC 5.35 10^3/uL (4.4-10.8)
[2022-08-17 11:20] LABS: ALT 35 U/L (14-59); AST 21 U/L (15-37); Albumin 3.1 g/dL (3.4-5.0); Alkaline Phosphatase 82 U/L (46-116); Anion Gap 6.7 mmol/L (3-11); BUN 13 mg/dL (7-18); Bilirubin, Total 0.2 mg/dL (0.2-1.0); CO2 26.3 mmol/L (21.0-32.0); CREATININE 0.9 mg/dL (0.55-1.02); Calcium 8.6 mg/dL (8.5-10.1); Chloride 109 mmol/L (98-107); Glucose 98 mg/dL (74-106); NT-proBNP 129 pg/mL (<300); Potassium 3.4 mmol/L (3.5-5.1); Sodium 142 mmol/L (136-145); Total Protein 6.7 g/dL (6.4-8.2)
[2022-08-19 12:10] LABS: Cancer Ag 15-3 34 U/mL (<30)
== END 2022-08-22 23:59 | disposition home or self-care (01) ==
LOC: INF 02:18
PROVIDERS: PCP Physician Assistant Medical; Visit Provider Internal Medicine
DX: I50.1 Left ventricular failure, unspecified (principal); C50.912 Malignant neoplasm of unspecified site of left female breast; C79.51 Secondary malignant neoplasm of bone
CPT/HCPCS: 36591; 80053; 86304; 83880; 85025; 86300

== ENCOUNTER 2022-09-07 09:20 | Outpatient (RCR) | payer MEDICAID, SELFPAY ==
[2022-09-07] MEDS: Normal Saline Flush 10 ML SYR IVP (09:42)
[2022-09-07 09:44] LABS: Abs Immature Grans 0.01 10^3/uL (0.0-0.06); Absolute Basophil Count 0.06 10^3/uL (0.0-0.2); Absolute Eosinophil Count 0.27 10^3/uL (0.0-0.7); Absolute Lymphocyte Count 2.06 10^3/uL (1.2-3.4); Absolute Monocyte Count 0.47 10^3/uL (0.1-0.8); Absolute Neutrophil Count 2.99 10^3/uL (1.2-6.7); Eosinophils % 4.6; HCT 38.8 % (36.0-46.0); HGB 12.5 g/dL (11.2-15.7); Immature Grans % 0.2; Lymphocytes % 35.2; MCH 27.4 pg (27.0-33.0); MCHC 32.2 % (32.0-36.0); MCV 85 fL (80-95); MPV 9.1 fL (8.0-11.0); Platelet Count 278 10^3/uL (130-400); RBC 4.56 10^6/uL (3.93-5.22); RDW-SD 48.8 fL; WBC 5.86 10^3/uL (4.4-10.8)
[2022-09-07 10:09] LABS: ALT 32 U/L (14-59); AST 21 U/L (15-37); Albumin 3.2 g/dL (3.4-5.0); Alkaline Phosphatase 75 U/L (46-116); Anion Gap 5.8 mmol/L (3-11); BUN 11 mg/dL (7-18); Bilirubin, Total 0.2 mg/dL (0.2-1.0); CO2 25.2 mmol/L (21.0-32.0); CREATININE 0.9 mg/dL (0.55-1.02); Calcium 8.9 mg/dL (8.5-10.1); Chloride 111 mmol/L (98-107); Glucose 102 mg/dL (74-106); NT-proBNP 170 pg/mL (<300); Potassium 3.4 mmol/L (3.5-5.1); Sodium 142 mmol/L (136-145); Total Protein 6.9 g/dL (6.4-8.2)
[2022-09-08 19:55] LABS: Cancer Ag 15-3 30 U/mL (<30)
== END 2022-09-22 23:59 | disposition home or self-care (01) ==
LOC: INF 09:20
PROVIDERS: Nurse Practitioner Adult Health; PCP Physician Assistant Medical; Visit Provider Internal Medicine
DX: Z45.2 Encounter for adjustment and management of vascular access device (principal); C50.912 Malignant neoplasm of unspecified site of left female breast; C79.51 Secondary malignant neoplasm of bone; I50.1 Left ventricular failure, unspecified
CPT/HCPCS: 36591; 80053; 86304; 83880; 85025; 86300

== ENCOUNTER 2022-10-19 01:49 | Outpatient (RCR) | payer MEDICAID, SELFPAY ==
[2022-09-28] MEDS: Normal Saline Flush 10 ML SYR IVP (12:40)
[2022-09-28 12:50] LABS: Abs Immature Grans 0.02 10^3/uL (0.0-0.06); Absolute Basophil Count 0.06 10^3/uL (0.0-0.2); Absolute Eosinophil Count 0.17 10^3/uL (0.0-0.7); Absolute Lymphocyte Count 2.37 10^3/uL (1.2-3.4); Absolute Monocyte Count 0.51 10^3/uL (0.1-0.8); Absolute Neutrophil Count 2.87 10^3/uL (1.2-6.7); Eosinophils % 2.8; HGB 12.3 g/dL (11.2-15.7); Immature Grans % 0.3; Lymphocytes % 39.5; MCH 27.2 pg (27.0-33.0); MCHC 31.5 % (32.0-36.0); MCV 86 fL (80-95); MPV 8.9 fL (8.0-11.0); Monocytes % 8.5; Neutrophils % 47.9; Platelet Count 291 10^3/uL (130-400); RBC 4.52 10^6/uL (3.93-5.22); RDW 15.7 % (11.7-14.6); RDW-SD 49.4 fL
[2022-09-28 13:11] LABS: ALT 28 U/L (14-59); AST 19 U/L (15-37); Albumin 3.2 g/dL (3.4-5.0); Alkaline Phosphatase 82 U/L (46-116); Anion Gap 6.6 mmol/L (3-11); BUN 15 mg/dL (7-18); Bilirubin, Total 0.3 mg/dL (0.2-1.0); CO2 26.4 mmol/L (21.0-32.0); CREATININE 0.9 mg/dL (0.55-1.02); Calcium 8.6 mg/dL (8.5-10.1); Chloride 109 mmol/L (98-107); Glucose 117 mg/dL (74-106); NT-proBNP 129 pg/mL (<300); Potassium 3.7 mmol/L (3.5-5.1); Sodium 142 mmol/L (136-145); Total Protein 6.9 g/dL (6.4-8.2)
[2022-09-29 16:44] LABS: Cancer Ag 15-3 28 U/mL (<30)
[2022-10-19] MEDS: Normal Saline Flush 10 ML SYR IVP (12:03)
[2022-10-19 12:28] LABS: Abs Immature Grans 0.02 10^3/uL (0.0-0.06); Absolute Basophil Count 0.07 10^3/uL (0.0-0.2); Absolute Eosinophil Count 0.19 10^3/uL (0.0-0.7); Absolute Lymphocyte Count 2.52 10^3/uL (1.2-3.4); Absolute Monocyte Count 0.59 10^3/uL (0.1-0.8); Absolute Neutrophil Count 2.53 10^3/uL (1.2-6.7); Basophils % 1.2; Eosinophils % 3.2; HCT 38.7 % (36.0-46.0); HGB 12.2 g/dL (11.2-15.7); Immature Grans % 0.3; Lymphocytes % 42.6; MCH 27.5 pg (27.0-33.0); MCHC 31.5 % (32.0-36.0); MCV 87 fL (80-95); MPV 9.2 fL (8.0-11.0); Neutrophils % 42.7; Platelet Count 284 10^3/uL (130-400); RBC 4.44 10^6/uL (3.93-5.22); RDW 15.7 % (11.7-14.6); RDW-SD 49.4 fL; WBC 5.92 10^3/uL (4.4-10.8)
[2022-10-19 12:45] LABS: ALT 29 U/L (14-59); AST 23 U/L (15-37); Albumin 3.1 g/dL (3.4-5.0); Alkaline Phosphatase 82 U/L (46-116); Anion Gap 11.3 mmol/L (3-11); BUN 12 mg/dL (7-18); Bilirubin, Total 0.3 mg/dL (0.2-1.0); CO2 26.7 mmol/L (21.0-32.0); CREATININE 0.9 mg/dL (0.55-1.02); Calcium 9.3 mg/dL (8.5-10.1); Chloride 103 mmol/L (98-107); Glucose 108 mg/dL (74-106); NT-proBNP 157 pg/mL (<300); Potassium 3.8 mmol/L (3.5-5.1); Sodium 141 mmol/L (136-145); Total Protein 6.8 g/dL (6.4-8.2)
[2022-10-20 17:45] LABS: Cancer Ag 15-3 25 U/mL (<30)
== END 2022-10-22 23:59 | disposition home or self-care (01) ==
LOC: INF 01:49
PROVIDERS: PCP Physician Assistant Medical; Visit Provider Internal Medicine
DX: I50.1 Left ventricular failure, unspecified (principal); C50.912 Malignant neoplasm of unspecified site of left female breast; C79.51 Secondary malignant neoplasm of bone; Z45.1 Encounter for adjustment and management of infusion pump
CPT/HCPCS: 36591; 80053; 86304; 83880; 85025; 86300

== ENCOUNTER 2022-11-09 12:45 | Outpatient (RCR) | payer MEDICAID, SELFPAY ==
[2022-11-09] MEDS: Normal Saline Flush 10 ML SYR IVP (13:00)
[2022-11-09 13:21] LABS: Abs Immature Grans 0.02 10^3/uL (0.0-0.06); Absolute Basophil Count 0.04 10^3/uL (0.0-0.2); Absolute Eosinophil Count 0.24 10^3/uL (0.0-0.7); Absolute Lymphocyte Count 2.47 10^3/uL (1.2-3.4); Absolute Monocyte Count 0.64 10^3/uL (0.1-0.8); Absolute Neutrophil Count 3.23 10^3/uL (1.2-6.7); Basophils % 0.6; Eosinophils % 3.6; HCT 35.3 % (36.0-46.0); HGB 11.2 g/dL (11.2-15.7); Immature Grans % 0.3; Lymphocytes % 37.2; MCH 28.1 pg (27.0-33.0); MCHC 31.7 % (32.0-36.0); MCV 89 fL (80-95); Monocytes % 9.6; Neutrophils % 48.7; Platelet Count 268 10^3/uL (130-400); RBC 3.99 10^6/uL (3.93-5.22); RDW-SD 48.9 fL; WBC 6.64 10^3/uL (4.4-10.8)
[2022-11-09 13:43] LABS: ALT 21 U/L (14-59); AST 20 U/L (15-37); Albumin 3.2 g/dL (3.4-5.0); Alkaline Phosphatase 83 U/L (46-116); Anion Gap 8.2 mmol/L (3-11); BUN 11 mg/dL (7-18); Bilirubin, Total 0.4 mg/dL (0.2-1.0); CO2 25.8 mmol/L (21.0-32.0); CREATININE 1.1 mg/dL (0.55-1.02); Calcium 9.2 mg/dL (8.5-10.1); Chloride 108 mmol/L (98-107); Estimated GFR 58.24 (mL/min/1.73m2); Glucose 116 mg/dL (74-106); NT-proBNP 247 pg/mL (<300); Potassium 3.8 mmol/L (3.5-5.1); Sodium 142 mmol/L (136-145); Total Protein 6.9 g/dL (6.4-8.2)
[2022-11-10 18:46] LABS: Cancer Ag 15-3 25 U/mL (<30)
== END 2022-11-22 23:59 | disposition home or self-care (01) ==
LOC: INF 12:45
PROVIDERS: Nurse Practitioner Adult Health; PCP Physician Assistant Medical; Visit Provider Internal Medicine
DX: I50.1 Left ventricular failure, unspecified (principal); C50.912 Malignant neoplasm of unspecified site of left female breast; C79.51 Secondary malignant neoplasm of bone; Z45.2 Encounter for adjustment and management of vascular access device
CPT/HCPCS: 36591; 80053; 86304; 83880; 85025; 86300

== ENCOUNTER 2022-12-21 02:32 | Outpatient (RCR) | payer MEDICAID, SELFPAY ==
[2022-11-30] MEDS: Normal Saline Flush 10 ML SYR IVP (09:23)
[2022-11-30 09:49] LABS: Abs Immature Grans 0.01 10^3/uL (0.0-0.06); Absolute Basophil Count 0.06 10^3/uL (0.0-0.2); Absolute Lymphocyte Count 2.11 10^3/uL (1.2-3.4); Absolute Neutrophil Count 2.19 10^3/uL (1.2-6.7); Basophils % 1.2; Eosinophils % 3.9; HCT 37.8 % (36.0-46.0); HGB 12.1 g/dL (11.2-15.7); Immature Grans % 0.2; Lymphocytes % 41.6; MCV 88 fL (80-95); MPV 9.5 fL (8.0-11.0); Monocytes % 9.9; Neutrophils % 43.2; Platelet Count 209 10^3/uL (130-400); RBC 4.32 10^6/uL (3.93-5.22); RDW 15.4 % (11.7-14.6); RDW-SD 48.7 fL; WBC 5.07 10^3/uL (4.4-10.8)
[2022-11-30 10:12] LABS: ALT 24 U/L (14-59); AST 20 U/L (15-37); Alkaline Phosphatase 84 U/L (46-116); Anion Gap 9.2 mmol/L (3-11); BUN 14 mg/dL (7-18); Bilirubin, Total 0.3 mg/dL (0.2-1.0); CO2 24.8 mmol/L (21.0-32.0); Calcium 8.9 mg/dL (8.5-10.1); Chloride 107 mmol/L (98-107); Glucose 102 mg/dL (74-106); NT-proBNP 194 pg/mL (<300); Potassium 3.6 mmol/L (3.5-5.1); Sodium 141 mmol/L (136-145); Total Protein 6.5 g/dL (6.4-8.2)
[2022-12-01 16:39] LABS: Cancer Ag 15-3 25 U/mL (<30)
[2022-12-21] MEDS: Normal Saline Flush 10 ML SYR IVP (09:39)
[2022-12-21 10:08] LABS: Abs Immature Grans 0.03 10^3/uL (0.0-0.06); Absolute Basophil Count 0.05 10^3/uL (0.0-0.2); Absolute Eosinophil Count 0.19 10^3/uL (0.0-0.7); Absolute Lymphocyte Count 2.26 10^3/uL (1.2-3.4); Absolute Monocyte Count 0.51 10^3/uL (0.1-0.8); Basophils % 0.9; Eosinophils % 3.4; HCT 38.7 % (36.0-46.0); HGB 12.3 g/dL (11.2-15.7); Immature Grans % 0.5; Lymphocytes % 40.1; MCHC 31.8 % (32.0-36.0); MCV 88 fL (80-95); MPV 8.9 fL (8.0-11.0); Neutrophils % 46.1; Platelet Count 264 10^3/uL (130-400); RBC 4.39 10^6/uL (3.93-5.22); RDW 15.1 % (11.7-14.6); RDW-SD 48.6 fL; WBC 5.64 10^3/uL (4.4-10.8)
[2022-12-21 10:34] LABS: ALT 26 U/L (14-59); AST 22 U/L (15-37); Alkaline Phosphatase 86 U/L (46-116); Anion Gap 7.8 mmol/L (3-11); BUN 14 mg/dL (7-18); Bilirubin, Total 0.3 mg/dL (0.2-1.0); CO2 26.2 mmol/L (21.0-32.0); Chloride 107 mmol/L (98-107); Glucose 99 mg/dL (74-106); Sodium 141 mmol/L (136-145); Total Protein 6.8 g/dL (6.4-8.2)
[2022-12-22 17:02] LABS: Cancer Ag 15-3 23 U/mL (<30)
== END 2022-12-23 23:59 | disposition home or self-care (01) ==
LOC: INF 02:32
PROVIDERS: Nurse Practitioner Adult Health; PCP Physician Assistant Medical; Visit Provider Internal Medicine
DX: C50.912 Malignant neoplasm of unspecified site of left female breast (principal); C79.51 Secondary malignant neoplasm of bone; Z45.2 Encounter for adjustment and management of vascular access device; I50.1 Left ventricular failure, unspecified
CPT/HCPCS: 36591; 80053; 86304; 83880; 85025; 86300

== ENCOUNTER 2023-01-11 03:13 | Outpatient (RCR) | payer MEDICAID, SELFPAY ==
[2023-01-11] MEDS: Normal Saline Flush 10 ML SYR IVP (08:43)
[2023-01-11 09:00] LABS: Abs Immature Grans 0.02 10^3/uL (0.0-0.06); Absolute Basophil Count 0.06 10^3/uL (0.0-0.2); Absolute Eosinophil Count 0.24 10^3/uL (0.0-0.7); Absolute Lymphocyte Count 1.65 10^3/uL (1.2-3.4); Absolute Neutrophil Count 3.19 10^3/uL (1.2-6.7); Basophils % 1.1; Eosinophils % 4.2; HCT 35.9 % (36.0-46.0); HGB 11.4 g/dL (11.2-15.7); Immature Grans % 0.4; Lymphocytes % 29.2; MCH 28.1 pg (27.0-33.0); MCHC 31.8 % (32.0-36.0); MCV 89 fL (80-95); MPV 9.3 fL (8.0-11.0); Monocytes % 8.8; Neutrophils % 56.3; Platelet Count 226 10^3/uL (130-400); RBC 4.05 10^6/uL (3.93-5.22); RDW 15.3 % (11.7-14.6); RDW-SD 49.4 fL; WBC 5.66 10^3/uL (4.4-10.8)
[2023-01-11 09:20] LABS: ALT 22 U/L (14-59); AST 23 U/L (15-37); Albumin 2.9 g/dL (3.4-5.0); Alkaline Phosphatase 83 U/L (46-116); Anion Gap 11.1 mmol/L (3-11); BUN 9 mg/dL (7-18); Bilirubin, Total 0.2 mg/dL (0.2-1.0); CO2 23.9 mmol/L (21.0-32.0); Calcium 8.6 mg/dL (8.5-10.1); Chloride 106 mmol/L (98-107); Glucose 126 mg/dL (74-106); Potassium 3.4 mmol/L (3.5-5.1); Sodium 141 mmol/L (136-145); Total Protein 6.5 g/dL (6.4-8.2)
[2023-01-12 18:57] LABS: Cancer Ag 15-3 23 U/mL (<30)
== END 2023-01-22 23:59 | disposition home or self-care (01) ==
LOC: INF 03:13
PROVIDERS: Nurse Practitioner Family; PCP Physician Assistant Medical; Visit Provider Internal Medicine
DX: C50.911 Malignant neoplasm of unspecified site of right female breast
CPT/HCPCS: 36591; 80053; 86304; 85025; 86300

== ENCOUNTER 2023-02-22 02:31 | Outpatient (RCR) | payer MEDICAID, SELFPAY ==
[2023-02-01] MEDS: Normal Saline Flush 10 ML SYR IVP (09:09)
[2023-02-01 09:15] LABS: Abs Immature Grans 0.01 10^3/uL (0.0-0.06); Absolute Basophil Count 0.05 10^3/uL (0.0-0.2); Absolute Eosinophil Count 0.22 10^3/uL (0.0-0.7); Absolute Lymphocyte Count 1.55 10^3/uL (1.2-3.4); Absolute Monocyte Count 0.45 10^3/uL (0.1-0.8); Absolute Neutrophil Count 2.14 10^3/uL (1.2-6.7); Basophils % 1.1; HCT 34.4 % (36.0-46.0); Immature Grans % 0.2; Lymphocytes % 35.1; MCH 28.3 pg (27.0-33.0); MCV 88 fL (80-95); Monocytes % 10.2; Neutrophils % 48.4; Platelet Count 245 10^3/uL (130-400); RBC 3.89 10^6/uL (3.93-5.22); RDW 15.1 % (11.7-14.6); RDW-SD 49.2 fL; WBC 4.42 10^3/uL (4.4-10.8)
[2023-02-01 09:38] LABS: ALT 19 U/L (14-59); AST 22 U/L (15-37); Albumin 2.9 g/dL (3.4-5.0); Alkaline Phosphatase 86 U/L (46-116); Anion Gap 7.6 mmol/L (3-11); BUN 8 mg/dL (7-18); Bilirubin, Total 0.3 mg/dL (0.2-1.0); CO2 26.4 mmol/L (21.0-32.0); Calcium 9.7 mg/dL (8.5-10.1); Chloride 106 mmol/L (98-107); Glucose 98 mg/dL (74-106); NT-proBNP 380 pg/mL (<300); Potassium 3.8 mmol/L (3.5-5.1); Sodium 140 mmol/L (136-145); Total Protein 6.6 g/dL (6.4-8.2)
[2023-02-02 18:46] LABS: Cancer Ag 15-3 24 U/mL (<30)
[2023-02-22] MEDS: Normal Saline Flush 10 ML SYR IVP (08:38)
[2023-02-22 08:46] LABS: Abs Immature Grans 0.01 10^3/uL (0.0-0.06); Absolute Basophil Count 0.05 10^3/uL (0.0-0.2); Absolute Eosinophil Count 0.28 10^3/uL (0.0-0.7); Absolute Lymphocyte Count 1.69 10^3/uL (1.2-3.4); Absolute Monocyte Count 0.59 10^3/uL (0.1-0.8); Absolute Neutrophil Count 2.42 10^3/uL (1.2-6.7); Eosinophils % 5.6; HCT 36.7 % (36.0-46.0); HGB 11.6 g/dL (11.2-15.7); Immature Grans % 0.2; Lymphocytes % 33.5; MCH 28.2 pg (27.0-33.0); MCHC 31.6 % (32.0-36.0); MCV 89 fL (80-95); MPV 8.9 fL (8.0-11.0); Monocytes % 11.7; Platelet Count 224 10^3/uL (130-400); RBC 4.12 10^6/uL (3.93-5.22); RDW 15.4 % (11.7-14.6); WBC 5.04 10^3/uL (4.4-10.8)
[2023-02-22 09:06] LABS: ALT 22 U/L (14-59); AST 25 U/L (15-37); Albumin 3.2 g/dL (3.4-5.0); Alkaline Phosphatase 82 U/L (46-116); Anion Gap 9.5 mmol/L (3-11); BUN 11 mg/dL (7-18); Bilirubin, Total 0.3 mg/dL (0.2-1.0); CO2 24.5 mmol/L (21.0-32.0); CREATININE 0.9 mg/dL (0.55-1.02); Calcium 9.5 mg/dL (8.5-10.1); Chloride 108 mmol/L (98-107); Glucose 115 mg/dL (74-106); NT-proBNP 134 pg/mL (<300); Potassium 3.9 mmol/L (3.5-5.1); Sodium 142 mmol/L (136-145); Total Protein 6.8 g/dL (6.4-8.2)
[2023-02-25 10:57] LABS: Cancer Ag 15-3 28 U/mL (<30)
== END 2023-02-22 23:59 | disposition home or self-care (01) ==
LOC: INF 02:31
PROVIDERS: PCP Physician Assistant Medical; Visit Provider Internal Medicine
DX: C79.9 Secondary malignant neoplasm of unspecified site (principal); C50.911 Malignant neoplasm of unspecified site of right female breast
CPT/HCPCS: 36591; 80053; 86304; 83880; 85025; 86300

== ENCOUNTER 2023-03-15 13:25 | Outpatient (RCR) | payer MEDICAID, SELFPAY ==
[2023-03-15 11:42] LABS: Abs Immature Grans 0.02 10^3/uL (0.0-0.06); Absolute Basophil Count 0.06 10^3/uL (0.0-0.2); Absolute Eosinophil Count 0.24 10^3/uL (0.0-0.7); Absolute Monocyte Count 0.57 10^3/uL (0.1-0.8); Eosinophils % 3.8; HCT 37.7 % (36.0-46.0); HGB 11.9 g/dL (11.2-15.7); Immature Grans % 0.3; MCH 28.5 pg (27.0-33.0); MCHC 31.6 % (32.0-36.0); MCV 90 fL (80-95); Monocytes % 9.1; Neutrophils % 50.8; Platelet Count 222 10^3/uL (130-400); RBC 4.18 10^6/uL (3.93-5.22); RDW 15.5 % (11.7-14.6); RDW-SD 50.6 fL; WBC 6.29 10^3/uL (4.4-10.8)
[2023-03-15] MEDS: Normal Saline Flush 10 ML SYR IVP (11:43)
[2023-03-15 12:09] LABS: ALT 24 U/L (14-59); AST 24 U/L (15-37); Albumin 3.2 g/dL (3.4-5.0); Alkaline Phosphatase 91 U/L (46-116); Anion Gap 4.4 mmol/L (3-11); BUN 13 mg/dL (7-18); Bilirubin, Total 0.3 mg/dL (0.2-1.0); CO2 28.6 mmol/L (21.0-32.0); CREATININE 0.9 mg/dL (0.55-1.02); Calcium 9.9 mg/dL (8.5-10.1); Chloride 109 mmol/L (98-107); Glucose 109 mg/dL (74-106); NT-proBNP 90 pg/mL (<300); Potassium 3.8 mmol/L (3.5-5.1); Sodium 142 mmol/L (136-145); Total Protein 6.8 g/dL (6.4-8.2)
[2023-03-18 13:51] LABS: Cancer Ag 15-3 32 U/mL (<30)
== END 2023-03-24 23:59 | disposition home or self-care (01) ==
LOC: INF 13:25
PROVIDERS: Nurse Practitioner Family; PCP Physician Assistant Medical; Visit Provider Internal Medicine
DX: C79.9 Secondary malignant neoplasm of unspecified site (principal); Z79.899 Other long term (current) drug therapy; C50.912 Malignant neoplasm of unspecified site of left female breast; Z45.2 Encounter for adjustment and management of vascular access device
CPT/HCPCS: 36591; 80053; 86304; 83880; 85025; 86300

== ENCOUNTER 2023-04-05 03:03 | Outpatient (RCR) | payer MEDICAID, SELFPAY ==
[2023-04-05] MEDS: Normal Saline Flush 10 ML SYR IVP (13:56)
[2023-04-05 14:10] LABS: Abs Immature Grans 0.01 10^3/uL (0.0-0.06); Absolute Basophil Count 0.04 10^3/uL (0.0-0.2); Absolute Eosinophil Count 0.18 10^3/uL (0.0-0.7); Absolute Lymphocyte Count 2.16 10^3/uL (1.2-3.4); Absolute Monocyte Count 0.55 10^3/uL (0.1-0.8); Basophils % 0.7; Eosinophils % 3.2; HGB 11.5 g/dL (11.2-15.7); Immature Grans % 0.2; MCH 28.8 pg (27.0-33.0); MCHC 31.9 % (32.0-36.0); MCV 90 fL (80-95); MPV 9.3 fL (8.0-11.0); Monocytes % 9.9; Platelet Count 193 10^3/uL (130-400); RBC 3.99 10^6/uL (3.93-5.22); RDW 15.4 % (11.7-14.6); RDW-SD 50.2 fL; WBC 5.54 10^3/uL (4.4-10.8)
[2023-04-05 14:35] LABS: ALT 27 U/L (14-59); AST 24 U/L (15-37); Albumin 3.1 g/dL (3.4-5.0); Alkaline Phosphatase 87 U/L (46-116); Anion Gap 8.6 mmol/L (3-11); BUN 12 mg/dL (7-18); Bilirubin, Total 0.4 mg/dL (0.2-1.0); CO2 25.4 mmol/L (21.0-32.0); CREATININE 0.9 mg/dL (0.55-1.02); Calcium 8.9 mg/dL (8.5-10.1); Chloride 109 mmol/L (98-107); Estimated GFR 73.64 (mL/min/1.73m2); Glucose 117 mg/dL (74-106); NT-proBNP 155 pg/mL (<300); Potassium 3.4 mmol/L (3.5-5.1); Sodium 143 mmol/L (136-145); Total Protein 6.7 g/dL (6.4-8.2)
[2023-04-07 11:19] LABS: Cancer Ag 15-3 27 U/mL (<30)
== END 2023-04-24 23:59 | disposition home or self-care (01) ==
LOC: INF 03:03
PROVIDERS: PCP Physician Assistant Medical; Visit Provider Internal Medicine
DX: C79.9 Secondary malignant neoplasm of unspecified site (principal); Z79.899 Other long term (current) drug therapy; C50.912 Malignant neoplasm of unspecified site of left female breast; Z45.2 Encounter for adjustment and management of vascular access device
CPT/HCPCS: 36591; 80053; 86304; 83880; 85025; 86300

== ENCOUNTER 2023-05-17 03:30 | Outpatient (RCR) | payer MEDICAID, SELFPAY ==
[2023-04-26 12:26] LABS: Abs Immature Grans 0.01 10^3/uL (0.0-0.06); Absolute Basophil Count 0.05 10^3/uL (0.0-0.2); Absolute Eosinophil Count 0.21 10^3/uL (0.0-0.7); Absolute Lymphocyte Count 1.72 10^3/uL (1.2-3.4); Absolute Monocyte Count 0.48 10^3/uL (0.1-0.8); Absolute Neutrophil Count 3.07 10^3/uL (1.2-6.7); Basophils % 0.9; Eosinophils % 3.8; HCT 37.1 % (36.0-46.0); HGB 12.1 g/dL (11.2-15.7); Immature Grans % 0.2; MCH 29.3 pg (27.0-33.0); MCHC 32.6 % (32.0-36.0); MCV 90 fL (80-95); MPV 9.6 fL (8.0-11.0); Monocytes % 8.7; Neutrophils % 55.4; Platelet Count 179 10^3/uL (130-400); RBC 4.13 10^6/uL (3.93-5.22); RDW 15.3 % (11.7-14.6); RDW-SD 49.8 fL; WBC 5.54 10^3/uL (4.4-10.8)
[2023-04-26] MEDS: Normal Saline Flush 10 ML SYR IVP (12:35)
[2023-04-26 12:46] LABS: ALT 24 U/L (14-59); AST 23 U/L (15-37); Albumin 2.9 g/dL (3.4-5.0); Alkaline Phosphatase 84 U/L (46-116); Anion Gap 7.3 mmol/L (3-11); BUN 11 mg/dL (7-18); Bilirubin, Total 0.4 mg/dL (0.2-1.0); CO2 27.7 mmol/L (21.0-32.0); CREATININE 0.9 mg/dL (0.55-1.02); Chloride 109 mmol/L (98-107); Estimated GFR 73.64 (mL/min/1.73m2); Glucose 116 mg/dL (74-106); NT-proBNP 92 pg/mL (<300); Potassium 3.7 mmol/L (3.5-5.1); Sodium 144 mmol/L (136-145); Total Protein 6.5 g/dL (6.4-8.2)
[2023-04-28 11:19] LABS: Cancer Ag 15-3 28 U/mL (<30)
[2023-05-17] MEDS: Normal Saline Flush 10 ML SYR IVP (09:15)
[2023-05-17 09:57] LABS: Abs Immature Grans 0.01 10^3/uL (0.0-0.06); Absolute Basophil Count 0.07 10^3/uL (0.0-0.2); Absolute Eosinophil Count 0.21 10^3/uL (0.0-0.7); Absolute Lymphocyte Count 2.04 10^3/uL (1.2-3.4); Absolute Monocyte Count 0.57 10^3/uL (0.1-0.8); Absolute Neutrophil Count 2.53 10^3/uL (1.2-6.7); Basophils % 1.3; Eosinophils % 3.9; HCT 37.9 % (36.0-46.0); HGB 12.4 g/dL (11.2-15.7); Immature Grans % 0.2; Lymphocytes % 37.6; MCH 29.2 pg (27.0-33.0); MCHC 32.7 % (32.0-36.0); MCV 89 fL (80-95); MPV 9.4 fL (8.0-11.0); Monocytes % 10.5; Neutrophils % 46.5; Platelet Count 191 10^3/uL (130-400); RBC 4.25 10^6/uL (3.93-5.22); RDW 15.2 % (11.7-14.6); RDW-SD 49.2 fL; WBC 5.43 10^3/uL (4.4-10.8)
[2023-05-17 10:39] LABS: ALT 25 U/L (14-59); AST 22 U/L (15-37); Albumin 2.9 g/dL (3.4-5.0); Alkaline Phosphatase 91 U/L (46-116); Anion Gap 6.2 mmol/L (3-11); BUN 13 mg/dL (7-18); Bilirubin, Total 0.3 mg/dL (0.2-1.0); CO2 26.8 mmol/L (21.0-32.0); CREATININE 0.9 mg/dL (0.55-1.02); Calcium 9.3 mg/dL (8.5-10.1); Chloride 109 mmol/L (98-107); Estimated GFR 73.64 (mL/min/1.73m2); Glucose 109 mg/dL (74-106); Potassium 3.6 mmol/L (3.5-5.1); Sodium 142 mmol/L (136-145); Total Protein 6.7 g/dL (6.4-8.2)
[2023-05-17 10:58] LABS: NT-proBNP 160 pg/mL (<300)
[2023-05-18 20:02] LABS: Cancer Ag 15-3 28 U/mL (<30)
== END 2023-05-25 23:59 | disposition home or self-care (01) ==
LOC: INF 03:30
PROVIDERS: Nurse Practitioner Family; PCP Physician Assistant Medical; Visit Provider Internal Medicine
DX: Z79.899 Other long term (current) drug therapy; C50.912 Malignant neoplasm of unspecified site of left female breast; C79.51 Secondary malignant neoplasm of bone; Z45.2 Encounter for adjustment and management of vascular access device
CPT/HCPCS: 36591; 80053; 86300; 83880; 85025

== ENCOUNTER 2023-06-07 03:08 | Outpatient (RCR) | payer MEDICAID, SELFPAY ==
[2023-06-07 08:32] LABS: Abs Immature Grans 0.01 10^3/uL (0.0-0.06); Absolute Basophil Count 0.05 10^3/uL (0.0-0.2); Absolute Eosinophil Count 0.26 10^3/uL (0.0-0.7); Absolute Lymphocyte Count 1.69 10^3/uL (1.2-3.4); Absolute Monocyte Count 0.51 10^3/uL (0.1-0.8); Absolute Neutrophil Count 2.23 10^3/uL (1.2-6.7); Basophils % 1.1; Eosinophils % 5.5; HCT 36.9 % (36.0-46.0); HGB 12.1 g/dL (11.2-15.7); Immature Grans % 0.2; Lymphocytes % 35.6; MCH 29.3 pg (27.0-33.0); MCHC 32.8 % (32.0-36.0); MCV 89 fL (80-95); MPV 9.3 fL (8.0-11.0); Monocytes % 10.7; Neutrophils % 46.9; Platelet Count 179 10^3/uL (130-400); RBC 4.13 10^6/uL (3.93-5.22); RDW 15.2 % (11.7-14.6); RDW-SD 49.8 fL; WBC 4.75 10^3/uL (4.4-10.8)
[2023-06-07 08:56] LABS: ALT 28 U/L (14-59); AST 29 U/L (15-37); Alkaline Phosphatase 93 U/L (46-116); BUN 6 mg/dL (7-18); Bilirubin, Total 0.4 mg/dL (0.2-1.0); CREATININE 0.9 mg/dL (0.55-1.02); Calcium 8.6 mg/dL (8.5-10.1); Chloride 111 mmol/L (98-107); Estimated GFR 73.64 (mL/min/1.73m2); Glucose 105 mg/dL (74-106); NT-proBNP 93 pg/mL (<300); Potassium 3.6 mmol/L (3.5-5.1); Sodium 145 mmol/L (136-145); Total Protein 6.6 g/dL (6.4-8.2)
[2023-06-07] MEDS: Normal Saline Flush 10 ML SYR IVP (09:00)
[2023-06-09 11:18] LABS: Cancer Ag 15-3 27 U/mL (<30)
== END 2023-06-23 23:59 | disposition home or self-care (01) ==
LOC: INF 03:08
PROVIDERS: PCP Physician Assistant Medical; Visit Provider Internal Medicine
DX: C79.9 Secondary malignant neoplasm of unspecified site (principal); C50.912 Malignant neoplasm of unspecified site of left female breast; Z79.899 Other long term (current) drug therapy
CPT/HCPCS: 36591; 80053; 86300; 83880; 85025

== ENCOUNTER 2023-07-19 04:27 | Outpatient (RCR) | payer MEDICAID, SELFPAY ==
[2023-06-28] MEDS: Normal Saline Flush 10 ML SYR IVP (09:07)
[2023-06-28 09:31] LABS: Abs Immature Grans 0.02 10^3/uL (0.0-0.06); Absolute Basophil Count 0.05 10^3/uL (0.0-0.2); Absolute Lymphocyte Count 1.96 10^3/uL (1.2-3.4); Absolute Monocyte Count 0.43 10^3/uL (0.1-0.8); Absolute Neutrophil Count 2.77 10^3/uL (1.2-6.7); Basophils % 0.9; Eosinophils % 3.7; HCT 37.1 % (36.0-46.0); HGB 12.1 g/dL (11.2-15.7); Immature Grans % 0.4; Lymphocytes % 36.1; MCH 29.4 pg (27.0-33.0); MCHC 32.6 % (32.0-36.0); MCV 90 fL (80-95); MPV 9.3 fL (8.0-11.0); Monocytes % 7.9; Platelet Count 184 10^3/uL (130-400); RBC 4.12 10^6/uL (3.93-5.22); RDW 15.3 % (11.7-14.6); WBC 5.43 10^3/uL (4.4-10.8)
[2023-06-28 09:45] LABS: ALT 27 U/L (14-59); AST 25 U/L (15-37); Alkaline Phosphatase 85 U/L (46-116); Anion Gap 9.8 mmol/L (3-11); BUN 11 mg/dL (7-18); Bilirubin, Total 0.4 mg/dL (0.2-1.0); CO2 25.2 mmol/L (21.0-32.0); CREATININE 0.9 mg/dL (0.55-1.02); Calcium 8.6 mg/dL (8.5-10.1); Chloride 110 mmol/L (98-107); Estimated GFR 73.64 (mL/min/1.73m2); Glucose 106 mg/dL (74-106); NT-proBNP 68 pg/mL (<300); Potassium 3.4 mmol/L (3.5-5.1); Sodium 145 mmol/L (136-145); Total Protein 6.5 g/dL (6.4-8.2)
[2023-06-29 19:42] LABS: Cancer Ag 15-3 26 U/mL (<30)
[2023-07-19] MEDS: Normal Saline Flush 10 ML SYR IVP (09:35)
[2023-07-19 09:53] LABS: Abs Immature Grans 0.01 10^3/uL (0.0-0.06); Absolute Basophil Count 0.05 10^3/uL (0.0-0.2); Absolute Eosinophil Count 0.18 10^3/uL (0.0-0.7); Absolute Lymphocyte Count 1.77 10^3/uL (1.2-3.4); Absolute Monocyte Count 0.49 10^3/uL (0.1-0.8); Absolute Neutrophil Count 2.53 10^3/uL (1.2-6.7); Eosinophils % 3.6; HCT 37.9 % (36.0-46.0); HGB 12.1 g/dL (11.2-15.7); Immature Grans % 0.2; Lymphocytes % 35.2; MCH 29.2 pg (27.0-33.0); MCHC 31.9 % (32.0-36.0); MCV 91 fL (80-95); MPV 9.2 fL (8.0-11.0); Monocytes % 9.7; Neutrophils % 50.3; Platelet Count 253 10^3/uL (130-400); RBC 4.15 10^6/uL (3.93-5.22); RDW 15.3 % (11.7-14.6); WBC 5.03 10^3/uL (4.4-10.8)
[2023-07-19 10:15] LABS: ALT 26 U/L (14-59); AST 32 U/L (15-37); Albumin 2.9 g/dL (3.4-5.0); Alkaline Phosphatase 85 U/L (46-116); Anion Gap 9.8 mmol/L (3-11); BUN 9 mg/dL (7-18); Bilirubin, Total 0.4 mg/dL (0.2-1.0); CO2 25.2 mmol/L (21.0-32.0); CREATININE 0.9 mg/dL (0.55-1.02); Calcium 9.1 mg/dL (8.5-10.1); Chloride 110 mmol/L (98-107); Estimated GFR 73.64 (mL/min/1.73m2); Glucose 103 mg/dL (74-106); Potassium 3.5 mmol/L (3.5-5.1); Sodium 145 mmol/L (136-145); Total Protein 6.4 g/dL (6.4-8.2)
[2023-07-21 12:15] LABS: Cancer Ag 15-3 27 U/mL (<30)
== END 2023-07-24 23:59 | disposition home or self-care (01) ==
LOC: INF 04:27
PROVIDERS: Nurse Practitioner Family; PCP Physician Assistant Medical; Visit Provider Internal Medicine
DX: Z79.899 Other long term (current) drug therapy; C50.912 Malignant neoplasm of unspecified site of left female breast; C79.9 Secondary malignant neoplasm of unspecified site; Z45.2 Encounter for adjustment and management of vascular access device
CPT/HCPCS: 36591; 80053; 86300; 83880; 85025

== ENCOUNTER 2023-08-10 04:14 | Outpatient (RCR) | payer MEDICAID, SELFPAY ==
[2023-08-10] MEDS: Normal Saline Flush 10 ML SYR IVP (13:20)
[2023-08-10 13:26] LABS: Abs Immature Grans 0.01 10^3/uL (0.0-0.06); Absolute Basophil Count 0.04 10^3/uL (0.0-0.2); Absolute Eosinophil Count 0.17 10^3/uL (0.0-0.7); Absolute Monocyte Count 0.46 10^3/uL (0.1-0.8); Absolute Neutrophil Count 2.16 10^3/uL (1.2-6.7); Basophils % 0.9; Eosinophils % 3.9; HCT 34.6 % (36.0-46.0); HGB 11.4 g/dL (11.2-15.7); Immature Grans % 0.2; Lymphocytes % 34.6; MCH 29.8 pg (27.0-33.0); MCHC 32.9 % (32.0-36.0); MCV 91 fL (80-95); MPV 9.3 fL (8.0-11.0); Monocytes % 10.6; Neutrophils % 49.8; Platelet Count 155 10^3/uL (130-400); RBC 3.82 10^6/uL (3.93-5.22); RDW 15.5 % (11.7-14.6); RDW-SD 50.9 fL; WBC 4.34 10^3/uL (4.4-10.8)
[2023-08-10 13:47] LABS: ALT 28 U/L (14-59); AST 28 U/L (15-37); Albumin 2.8 g/dL (3.4-5.0); Alkaline Phosphatase 86 U/L (46-116); Anion Gap 9.3 mmol/L (3-11); BUN 12 mg/dL (7-18); Bilirubin, Total 0.4 mg/dL (0.2-1.0); CO2 26.7 mmol/L (21.0-32.0); CREATININE 0.8 mg/dL (0.55-1.02); Calcium 8.9 mg/dL (8.5-10.1); Chloride 109 mmol/L (98-107); Estimated GFR 84.82 (mL/min/1.73m2); Glucose 105 mg/dL (74-106); Potassium 3.4 mmol/L (3.5-5.1); Sodium 145 mmol/L (136-145)
[2023-08-12 11:04] LABS: Cancer Ag 15-3 26 U/mL (<30)
== END 2023-08-23 23:59 | disposition home or self-care (01) ==
LOC: INF 04:14
PROVIDERS: PCP Physician Assistant Medical; Visit Provider Internal Medicine
DX: C79.9 Secondary malignant neoplasm of unspecified site (principal); C50.912 Malignant neoplasm of unspecified site of left female breast
CPT/HCPCS: 36591; 80053; 86300; 85025

== ENCOUNTER 2023-09-20 09:30 | Outpatient (RCR) | payer MEDICAID, SELFPAY ==
[2023-08-30] MEDS: Normal Saline Flush 10 ML SYR IVP (09:10)
[2023-08-30 09:46] LABS: Abs Immature Grans 0.01 10^3/uL (0.0-0.06); Absolute Basophil Count 0.04 10^3/uL (0.0-0.2); Absolute Lymphocyte Count 1.52 10^3/uL (1.2-3.4); Absolute Monocyte Count 0.49 10^3/uL (0.1-0.8); Absolute Neutrophil Count 1.91 10^3/uL (1.2-6.7); Eosinophils % 4.8 %; HCT 34.8 % (36.0-46.0); HGB 11.2 g/dL (11.2-15.7); Immature Grans % 0.2 %; Lymphocytes % 36.5 %; MCH 29.5 pg (27.0-33.0); MCHC 32.2 % (32.0-36.0); MCV 92 fL (80-95); MPV 9.3 fL (8.0-11.0); Monocytes % 11.8 %; Neutrophils % 45.7 %; Platelet Count 154 10^3/uL (130-400); RDW-SD 50.3 fL; WBC 4.17 10^3/uL (4.4-10.8)
[2023-08-30 10:12] LABS: ALT 26 U/L (14-59); AST 26 U/L (15-37); Albumin 2.8 g/dL (3.4-5.0); Alkaline Phosphatase 80 U/L (46-116); Anion Gap 8.2 mmol/L (3-11); BUN 8 mg/dL (7-18); Bilirubin, Total 0.4 mg/dL (0.2-1.0); CO2 26.8 mmol/L (21.0-32.0); CREATININE 0.8 mg/dL (0.55-1.02); Calcium 8.8 mg/dL (8.5-10.1); Chloride 110 mmol/L (98-107); Estimated GFR 84.82 (mL/min/1.73m2); Glucose 101 mg/dL (74-106); NT-proBNP 127 pg/mL (<300); Potassium 3.5 mmol/L (3.5-5.1); Sodium 145 mmol/L (136-145); Total Protein 6.2 g/dL (6.4-8.2)
[2023-09-01 10:59] LABS: Cancer Ag 15-3 28 U/mL (<30)
[2023-09-20] MEDS: Normal Saline Flush 10 ML SYR IVP (09:30)
[2023-09-20 09:53] LABS: Abs Immature Grans 0.01 10^3/uL (0.0-0.06); Absolute Basophil Count 0.04 10^3/uL (0.0-0.2); Absolute Eosinophil Count 0.19 10^3/uL (0.0-0.7); Absolute Lymphocyte Count 1.36 10^3/uL (1.2-3.4); Absolute Neutrophil Count 2.63 10^3/uL (1.2-6.7); Basophils % 0.9 %; Eosinophils % 4.1 %; HCT 35.6 % (36.0-46.0); HGB 11.6 g/dL (11.2-15.7); Immature Grans % 0.2 %; Lymphocytes % 29.4 %; MCH 30.1 pg (27.0-33.0); MCHC 32.6 % (32.0-36.0); MCV 93 fL (80-95); MPV 9.3 fL (8.0-11.0); Monocytes % 8.6 %; Neutrophils % 56.8 %; Platelet Count 163 10^3/uL (130-400); RBC 3.85 10^6/uL (3.93-5.22); RDW 15.3 % (11.7-14.6); RDW-SD 51.4 fL; WBC 4.63 10^3/uL (4.4-10.8)
[2023-09-20 10:17] LABS: ALT 23 U/L (14-59); AST 24 U/L (15-37); Albumin 2.9 g/dL (3.4-5.0); Alkaline Phosphatase 86 U/L (46-116); Anion Gap 9.7 mmol/L (3-11); BUN 9 mg/dL (7-18); Bilirubin, Total 0.4 mg/dL (0.2-1.0); CO2 24.3 mmol/L (21.0-32.0); CREATININE 0.8 mg/dL (0.55-1.02); Calcium 8.6 mg/dL (8.5-10.1); Chloride 112 mmol/L (98-107); Estimated GFR 84.82 (mL/min/1.73m2); Glucose 113 mg/dL (74-106); Potassium 3.4 mmol/L (3.5-5.1); Sodium 146 mmol/L (136-145); Total Protein 6.3 g/dL (6.4-8.2)
[2023-09-20 10:26] LABS: NT-proBNP 221 pg/mL (<300)
[2023-09-22 11:28] LABS: Cancer Ag 15-3 29 U/mL (<30)
== END 2023-09-23 23:59 | disposition home or self-care (01) ==
LOC: INF 09:30
PROVIDERS: Nurse Practitioner Family; PCP Physician Assistant Medical; Visit Provider Internal Medicine
DX: Z45.2 Encounter for adjustment and management of vascular access device (principal); Z79.899 Other long term (current) drug therapy; C79.9 Secondary malignant neoplasm of unspecified site; C50.919 Malignant neoplasm of unspecified site of unspecified female breast
CPT/HCPCS: 36591; 80053; 86300; 83880; 85025

== ENCOUNTER 2023-10-11 04:53 | Outpatient (RCR) | payer MEDICAID, SELFPAY ==
[2023-10-11] MEDS: Normal Saline Flush 10 ML SYR IVP (10:20)
[2023-10-11 10:28] LABS: Abs Immature Grans 0.01 10^3/uL (0.0-0.06); Absolute Basophil Count 0.04 10^3/uL (0.0-0.2); Absolute Eosinophil Count 0.22 10^3/uL (0.0-0.7); Absolute Lymphocyte Count 1.67 10^3/uL (1.2-3.4); Absolute Monocyte Count 0.48 10^3/uL (0.1-0.8); Absolute Neutrophil Count 2.37 10^3/uL (1.2-6.7); Basophils % 0.8 %; Eosinophils % 4.6 %; HCT 37.6 % (36.0-46.0); HGB 12.3 g/dL (11.2-15.7); Immature Grans % 0.2 %; Lymphocytes % 34.9 %; MCH 29.9 pg (27.0-33.0); MCHC 32.7 % (32.0-36.0); MCV 91 fL (80-95); MPV 9.3 fL (8.0-11.0); Neutrophils % 49.5 %; Platelet Count 160 10^3/uL (130-400); RBC 4.12 10^6/uL (3.93-5.22); RDW 14.8 % (11.7-14.6); RDW-SD 49.6 fL; WBC 4.79 10^3/uL (4.4-10.8)
[2023-10-11 10:49] LABS: ALT 25 U/L (14-59); AST 27 U/L (15-37); Alkaline Phosphatase 96 U/L (46-116); Anion Gap 10.9 mmol/L (3-11); BUN 6 mg/dL (7-18); Bilirubin, Total 0.5 mg/dL (0.2-1.0); CO2 24.1 mmol/L (21.0-32.0); CREATININE 0.9 mg/dL (0.55-1.02); Calcium 8.6 mg/dL (8.5-10.1); Chloride 110 mmol/L (98-107); Estimated GFR 73.64 (mL/min/1.73m2); Glucose 123 mg/dL (74-106); NT-proBNP 167 pg/mL (<300); Potassium 3.6 mmol/L (3.5-5.1); Sodium 145 mmol/L (136-145); Total Protein 6.5 g/dL (6.4-8.2)
[2023-10-13 13:43] LABS: Cancer Ag 15-3 29 U/mL (<30)
== END 2023-10-23 23:59 | disposition home or self-care (01) ==
LOC: INF 04:53
PROVIDERS: PCP Physician Assistant Medical; Visit Provider Internal Medicine
DX: C50.912 Malignant neoplasm of unspecified site of left female breast; Z79.899 Other long term (current) drug therapy
CPT/HCPCS: 36591; 80053; 86300; 83880; 85025

== ENCOUNTER 2023-11-22 03:05 | Outpatient (RCR) | payer MEDICAID, SELFPAY ==
[2023-11-01] MEDS: Normal Saline Flush 10 ML SYR IVP (08:42)
[2023-11-01 08:51] LABS: Abs Immature Grans 0.02 10^3/uL (0.0-0.06); Absolute Basophil Count 0.04 10^3/uL (0.0-0.2); Absolute Eosinophil Count 0.15 10^3/uL (0.0-0.7); Absolute Lymphocyte Count 1.53 10^3/uL (1.2-3.4); Absolute Monocyte Count 0.61 10^3/uL (0.1-0.8); Absolute Neutrophil Count 2.96 10^3/uL (1.2-6.7); Basophils % 0.8 %; Eosinophils % 2.8 %; HCT 35.1 % (36.0-46.0); HGB 11.6 g/dL (11.2-15.7); Immature Grans % 0.4 %; Lymphocytes % 28.8 %; MCH 30.1 pg (27.0-33.0); MCV 91 fL (80-95); MPV 9.2 fL (8.0-11.0); Monocytes % 11.5 %; Neutrophils % 55.7 %; Platelet Count 162 10^3/uL (130-400); RBC 3.86 10^6/uL (3.93-5.22); RDW 14.7 % (11.7-14.6); RDW-SD 48.7 fL; WBC 5.31 10^3/uL (4.4-10.8)
[2023-11-01 09:12] LABS: ALT 22 U/L (14-59); AST 20 U/L (15-37); Albumin 2.8 g/dL (3.4-5.0); Alkaline Phosphatase 89 U/L (46-116); Anion Gap 6.4 mmol/L (3-11); BUN 14 mg/dL (7-18); Bilirubin, Total 0.43 mg/dL (0.2-1.0); CO2 29.6 mmol/L (21.0-32.0); Calcium 9.6 mg/dL (8.5-10.1); Chloride 108 mmol/L (98-107); Glucose 110 mg/dL (74-106); NT-proBNP 149 pg/mL (<300); Potassium 3.6 mmol/L (3.5-5.1); Sodium 144 mmol/L (136-145); Total Protein 6.2 g/dL (6.4-8.2)
[2023-11-03 09:49] LABS: Cancer Ag 15-3 29 U/mL (<30)
[2023-11-22 09:43] LABS: Abs Immature Grans 0.01 10^3/uL (0.0-0.06); Absolute Basophil Count 0.03 10^3/uL (0.0-0.2); Absolute Eosinophil Count 0.16 10^3/uL (0.0-0.7); Absolute Lymphocyte Count 1.52 10^3/uL (1.2-3.4); Absolute Monocyte Count 0.52 10^3/uL (0.1-0.8); Basophils % 0.6 %; Eosinophils % 3.2 %; HCT 34.4 % (36.0-46.0); HGB 11.3 g/dL (11.2-15.7); Immature Grans % 0.2 %; Lymphocytes % 30.8 %; MCH 29.8 pg (27.0-33.0); MCHC 32.8 % (32.0-36.0); MCV 91 fL (80-95); MPV 9.8 fL (8.0-11.0); Monocytes % 10.5 %; Neutrophils % 54.7 %; Platelet Count 146 10^3/uL (130-400); RBC 3.79 10^6/uL (3.93-5.22); RDW 14.6 % (11.7-14.6); RDW-SD 47.9 fL; WBC 4.94 10^3/uL (4.4-10.8)
[2023-11-22] MEDS: Normal Saline Flush 10 ML SYR IVP (10:00)
[2023-11-22 10:04] LABS: ALT 25 U/L (14-59); AST 26 U/L (15-37); Albumin 2.9 g/dL (3.4-5.0); Alkaline Phosphatase 92 U/L (46-116); Anion Gap 8.6 mmol/L (3-11); BUN 10 mg/dL (7-18); Bilirubin, Total 0.68 mg/dL (0.2-1.0); CO2 27.4 mmol/L (21.0-32.0); Calcium 8.9 mg/dL (8.5-10.1); Chloride 111 mmol/L (98-107); Glucose 110 mg/dL (74-106); NT-proBNP 287 pg/mL (<300); Potassium 3.5 mmol/L (3.5-5.1); Sodium 147 mmol/L (136-145); Total Protein 6.1 g/dL (6.4-8.2)
[2023-11-23 19:37] LABS: Cancer Ag 15-3 25 U/mL (<30)
== END 2023-11-23 23:59 | disposition home or self-care (01) ==
LOC: INF 03:05
PROVIDERS: PCP Physician Assistant Medical; Visit Provider Internal Medicine
DX: C79.9 Secondary malignant neoplasm of unspecified site (principal); C50.912 Malignant neoplasm of unspecified site of left female breast; Z79.899 Other long term (current) drug therapy; Z45.2 Encounter for adjustment and management of vascular access device
CPT/HCPCS: 36591; 80053; 86300; 83880; 85025

== ENCOUNTER 2023-12-13 01:50 | Outpatient (RCR) | payer MEDICAID, SELFPAY ==
[2023-12-13] MEDS: Normal Saline Flush 10 ML SYR IVP (10:03)
[2023-12-13 10:16] LABS: Abs Immature Grans 0.01 10^3/uL (0.0-0.06); Absolute Basophil Count 0.03 10^3/uL (0.0-0.2); Absolute Eosinophil Count 0.22 10^3/uL (0.0-0.7); Absolute Monocyte Count 0.54 10^3/uL (0.1-0.8); Absolute Neutrophil Count 2.97 10^3/uL (1.2-6.7); Basophils % 0.6 %; Eosinophils % 4.2 %; HCT 35.7 % (36.0-46.0); HGB 11.5 g/dL (11.2-15.7); Immature Grans % 0.2 %; Lymphocytes % 28.5 %; MCH 29.9 pg (27.0-33.0); MCHC 32.2 % (32.0-36.0); MCV 93 fL (80-95); MPV 9.8 fL (8.0-11.0); Monocytes % 10.2 %; Neutrophils % 56.3 %; Platelet Count 162 10^3/uL (130-400); RBC 3.84 10^6/uL (3.93-5.22); RDW 14.5 % (11.7-14.6); RDW-SD 49.4 fL; WBC 5.27 10^3/uL (4.4-10.8)
[2023-12-13 10:39] LABS: ALT 34 U/L (14-59); AST 31 U/L (15-37); Albumin 2.8 g/dL (3.4-5.0); Alkaline Phosphatase 101 U/L (46-116); Anion Gap 8.1 mmol/L (3-11); BUN 7 mg/dL (7-18); Bilirubin, Total 0.37 mg/dL (0.2-1.0); CO2 25.9 mmol/L (21.0-32.0); CREATININE 0.9 mg/dL (0.55-1.02); Calcium 9.3 mg/dL (8.5-10.1); Chloride 111 mmol/L (98-107); Estimated GFR 73.64 (mL/min/1.73m2); Glucose 121 mg/dL (74-106); NT-proBNP 107 pg/mL (<300); Potassium 3.5 mmol/L (3.5-5.1); Sodium 145 mmol/L (136-145); Total Protein 6.2 g/dL (6.4-8.2)
[2023-12-15 14:44] LABS: Cancer Ag 15-3 26 U/mL (<30)
== END 2023-12-24 23:59 | disposition home or self-care (01) ==
LOC: INF 01:50
PROVIDERS: Nurse Practitioner Family; PCP Physician Assistant Medical; Visit Provider Internal Medicine
DX: C50.912 Malignant neoplasm of unspecified site of left female breast; Z79.899 Other long term (current) drug therapy
CPT/HCPCS: 36591; 80053; 86300; 83880; 85025

== ENCOUNTER 2024-01-02 09:00 | Outpatient (RCR) | payer MEDICAID, SELFPAY ==
[2024-01-02] MEDS: Normal Saline Flush 10 ML SYR IVP (09:29)
[2024-01-02 09:36] LABS: Abs Immature Grans 0.01 10^3/uL (0.0-0.06); Absolute Basophil Count 0.05 10^3/uL (0.0-0.2); Absolute Eosinophil Count 0.21 10^3/uL (0.0-0.7); Absolute Lymphocyte Count 1.69 10^3/uL (1.2-3.4); Absolute Monocyte Count 0.42 10^3/uL (0.1-0.8); Absolute Neutrophil Count 2.03 10^3/uL (1.2-6.7); Basophils % 1.1 %; Eosinophils % 4.8 %; HCT 36.3 % (36.0-46.0); HGB 11.7 g/dL (11.2-15.7); Immature Grans % 0.2 %; Lymphocytes % 38.3 %; MCH 29.5 pg (27.0-33.0); MCHC 32.2 % (32.0-36.0); MCV 92 fL (80-95); MPV 9.1 fL (8.0-11.0); Monocytes % 9.5 %; Neutrophils % 46.1 %; Platelet Count 143 10^3/uL (130-400); RBC 3.96 10^6/uL (3.93-5.22); RDW 14.5 % (11.7-14.6); RDW-SD 48.7 fL; WBC 4.41 10^3/uL (4.4-10.8)
[2024-01-02 09:54] LABS: ALT 30 U/L (14-59); AST 28 U/L (15-37); Albumin 2.9 g/dL (3.4-5.0); Alkaline Phosphatase 99 U/L (46-116); Anion Gap 8.3 mmol/L (3-11); BUN 10 mg/dL (7-18); Bilirubin, Total 0.49 mg/dL (0.2-1.0); CO2 26.7 mmol/L (21.0-32.0); CREATININE 0.9 mg/dL (0.55-1.02); Chloride 109 mmol/L (98-107); Estimated GFR 73.64 (mL/min/1.73m2); Glucose 101 mg/dL (74-106); Potassium 3.5 mmol/L (3.5-5.1); Sodium 144 mmol/L (136-145); Total Protein 6.3 g/dL (6.4-8.2)
[2024-01-04 13:30] LABS: Cancer Ag 15-3 28 U/mL (<30)
== END 2024-01-23 23:59 | disposition home or self-care (01) ==
LOC: INF 09:00
PROVIDERS: PCP Physician Assistant Medical; Visit Provider Internal Medicine
DX: C50.912 Malignant neoplasm of unspecified site of left female breast; C79.51 Secondary malignant neoplasm of bone; Z79.899 Other long term (current) drug therapy
CPT/HCPCS: 36591; 80053; 86300; 85025

== ENCOUNTER 2024-02-14 14:00 | Outpatient (RCR) | payer MEDICAID, SELFPAY ==
[2024-01-24 10:41] LABS: Abs Immature Grans 0.03 10^3/uL (0.0-0.06); Absolute Basophil Count 0.04 10^3/uL (0.0-0.2); Absolute Eosinophil Count 0.18 10^3/uL (0.0-0.7); Absolute Lymphocyte Count 1.36 10^3/uL (1.2-3.4); Absolute Neutrophil Count 2.93 10^3/uL (1.2-6.7); Basophils % 0.8 %; Eosinophils % 3.6 %; HCT 39.1 % (36.0-46.0); HGB 12.6 g/dL (11.2-15.7); Immature Grans % 0.6 %; Lymphocytes % 27.5 %; MCHC 32.2 % (32.0-36.0); MCV 93 fL (80-95); MPV 9.7 fL (8.0-11.0); Monocytes % 8.1 %; Neutrophils % 59.4 %; Platelet Count 155 10^3/uL (130-400); RDW 15.4 % (11.7-14.6); RDW-SD 52.2 fL; WBC 4.94 10^3/uL (4.4-10.8)
[2024-01-24 10:55] LABS: ALT 33 U/L (14-59); AST 29 U/L (15-37); Alkaline Phosphatase 98 U/L (46-116); Anion Gap 7.2 mmol/L (3-11); BUN 10 mg/dL (7-18); Bilirubin, Total 0.41 mg/dL (0.2-1.0); CO2 25.8 mmol/L (21.0-32.0); Chloride 108 mmol/L (98-107); Glucose 158 mg/dL (74-106); Potassium 3.1 mmol/L (3.5-5.1); Sodium 141 mmol/L (136-145); Total Protein 6.6 g/dL (6.4-8.2)
[2024-01-24] MEDS: Normal Saline Flush 10 ML SYR IVP (11:30)
[2024-01-26 09:46] LABS: Cancer Ag 15-3 27 U/mL (<30)
[2024-02-14] MEDS: Normal Saline Flush 10 ML SYR IVP (13:59)
[2024-02-14 14:14] LABS: Abs Immature Grans 0.01 10^3/uL (0.0-0.06); Absolute Basophil Count 0.04 10^3/uL (0.0-0.2); Absolute Eosinophil Count 0.15 10^3/uL (0.0-0.7); Absolute Lymphocyte Count 1.18 10^3/uL (1.2-3.4); Absolute Monocyte Count 0.44 10^3/uL (0.1-0.8); Absolute Neutrophil Count 2.35 10^3/uL (1.2-6.7); Eosinophils % 3.6 %; HCT 34.4 % (36.0-46.0); HGB 11.3 g/dL (11.2-15.7); Immature Grans % 0.2 %; Lymphocytes % 28.3 %; MCH 30.1 pg (27.0-33.0); MCHC 32.8 % (32.0-36.0); MCV 92 fL (80-95); MPV 9.6 fL (8.0-11.0); Monocytes % 10.6 %; Neutrophils % 56.3 %; Platelet Count 134 10^3/uL (130-400); RBC 3.75 10^6/uL (3.93-5.22); RDW 14.8 % (11.7-14.6); RDW-SD 49.5 fL; WBC 4.17 10^3/uL (4.4-10.8)
[2024-02-14 14:31] LABS: ALT 32 U/L (14-59); AST 32 U/L (15-37); Albumin 2.9 g/dL (3.4-5.0); Alkaline Phosphatase 106 U/L (46-116); Anion Gap 7.8 mmol/L (3-11); BUN 14 mg/dL (7-18); Bilirubin, Total 0.51 mg/dL (0.2-1.0); CO2 26.2 mmol/L (21.0-32.0); Calcium 9.1 mg/dL (8.5-10.1); Chloride 111 mmol/L (98-107); Glucose 95 mg/dL (74-106); Potassium 3.7 mmol/L (3.5-5.1); Sodium 145 mmol/L (136-145); Total Protein 6.2 g/dL (6.4-8.2)
[2024-02-15 18:17] LABS: Cancer Ag 15-3 26 U/mL (<30)
== END 2024-02-23 23:59 | disposition home or self-care (01) ==
LOC: INF 14:00
PROVIDERS: Nurse Practitioner; PCP Physician Assistant Medical; Visit Provider Internal Medicine
DX: C50.912 Malignant neoplasm of unspecified site of left female breast (principal); C79.51 Secondary malignant neoplasm of bone; Z79.899 Other long term (current) drug therapy; Z45.2 Encounter for adjustment and management of vascular access device
CPT/HCPCS: 36591; 80053; 86300; 85025

== ENCOUNTER 2024-03-06 03:28 | Outpatient (RCR) | payer MEDICAID, SELFPAY ==
[2024-03-06] MEDS: Normal Saline Flush 10 ML SYR IVP (08:50)
[2024-03-06 08:59] LABS: Abs Immature Grans 0.02 10^3/uL (0.0-0.06); Absolute Basophil Count 0.05 10^3/uL (0.0-0.2); Absolute Eosinophil Count 0.22 10^3/uL (0.0-0.7); Absolute Lymphocyte Count 1.37 10^3/uL (1.2-3.4); Absolute Monocyte Count 0.49 10^3/uL (0.1-0.8); Absolute Neutrophil Count 2.88 10^3/uL (1.2-6.7); Eosinophils % 4.4 %; HCT 36.3 % (36.0-46.0); HGB 11.9 g/dL (11.2-15.7); Immature Grans % 0.4 %; Lymphocytes % 27.2 %; MCHC 32.8 % (32.0-36.0); MCV 91 fL (80-95); MPV 9.2 fL (8.0-11.0); Monocytes % 9.7 %; Neutrophils % 57.3 %; Platelet Count 158 10^3/uL (130-400); RBC 3.97 10^6/uL (3.93-5.22); RDW 15.2 % (11.7-14.6); RDW-SD 50.5 fL; WBC 5.03 10^3/uL (4.4-10.8)
[2024-03-06 09:20] LABS: Albumin 2.9 g/dL (3.4-5.0); BUN 13 mg/dL (7-18); CREATININE 0.9 mg/dL (0.55-1.02); Calcium 9.1 mg/dL (8.5-10.1); Estimated GFR 73.64 (mL/min/1.73m2); Glucose 127 mg/dL (74-106); Total Protein 6.4 g/dL (6.4-8.2)
[2024-03-06 09:21] LABS: ALT 28 U/L (14-59); AST 31 U/L (15-37); Alkaline Phosphatase 107 U/L (46-116); Anion Gap 9.7 mmol/L (3-11); Bilirubin, Total 0.49 mg/dL (0.2-1.0); CO2 25.3 mmol/L (21.0-32.0); Chloride 112 mmol/L (98-107); Potassium 3.4 mmol/L (3.5-5.1); Sodium 147 mmol/L (136-145)
[2024-03-08 10:54] LABS: Cancer Ag 15-3 29 U/mL (<30)
== END 2024-03-24 23:59 | disposition home or self-care (01) ==
LOC: INF 03:28
PROVIDERS: Nurse Practitioner; PCP Physician Assistant Medical; Visit Provider Internal Medicine
DX: C79.51 Secondary malignant neoplasm of bone; Z79.899 Other long term (current) drug therapy; C50.912 Malignant neoplasm of unspecified site of left female breast
CPT/HCPCS: 36591; 80053; 86300; 85025

== ENCOUNTER 2024-03-27 10:40 | Emergency (ER) | payer MEDICAID, SELFPAY ==
[2024-03-27] VITALS (11 sets, daily range): BP systolic 95–113; BP diastolic 42–67; PULSE 70–84; RESP 12–15; TEMP 36.4; O2SAT 95–98
--- NOTE | 2024-03-27 10:45 | RT.EKG_ITS ---
APPROVED REPORT Exam: Resting ECG Reason for Exam: hypernatremia Patient Location: E HR:80 bpm ECG Measurements Heart Rate 80 AXIS WI 181 P 72 QRSd 88 QRS 28 QT 373 T 43 QTc 430 Conclusion Sinus rhythm...normal P axis, V-rate 60- 99 Narrow complex normal sinus rhythm at a rate of 80. Normal axis. Intervals within normal limits. N o ST segment abnormalities. No T wave inversions. No prior for comparison.
--- NOTE | 2024-03-27 10:52 | W.ED.GENAD ---
Discharge Plan Disposition Patient Disposition: Home Discharge Details Clinical Impression: Transient confusion Primary Care Provider: Willian Armendariz ED Provider: Lalo Goyal [place] Meds and New Rx's Prescriptions: New topiramate 25 mg capsule,extended release 24hr 75 mg PO DAILY 14 Days Qty: 42 0RF Continued loperamide [Anti-Diarrheal (loperamide)] 2 mg capsule 2 mg PO QID PRN phenazopyridine [Pyridium] 100 mg tablet 100 mg PO TID PRN (Reason: pain) Qty: 20 2RF gabapentin 400 mg capsule 400 mg PO TID famotidine 20 mg tablet 20 mg PO BID lorazepam 0.5 mg tablet 0.5 mg PO BID MDD 1mg PRN (Reason: anxiety) 30 Days Qty: 20 3RF Rx Instructions: Pt has narcan at home sucralfate [Carafate] 1 gram tablet 1 g PO BID fentanyl 50 mcg/hr patch 72 hour 1 patch transdermal Q72H MDD 50mcg/hr Qty: 10 0RF Rx Instructions: for cancer related pain palliative care patient oxycodone 10 mg tablet 10 mg PO Q4H MDD 40 mg PRN (Reason: pain) Qty: 120 0RF metoprolol succinate 25 mg tablet extended release 24 hr 50 mg PO DAILY ondansetron HCl 4 mg tablet 4 mg PO Q6H PRN Qty: 30 2RF diphenoxylate-atropine 2.5-0.025 mg tablet See Rx Instructions PO QID MDD 8 pills PRN (Reason: diarrhea) Qty: 60 1RF Rx Instructions: 1-2 pills every 6 hours as needed, orally four times a day PRN; naloxone [Narcan] 4 mg/actuation spray,non-aerosol 4 mg intranasal Q2M PRN (Reason: opioid overdose) Qty: 2 0RF Rx Instructions: spray 1 dose into ONE nostril; alternate nostrils w each dose until help arrives atorvastatin 10 mg tablet 10 mg PO DAILY amitriptyline 10 mg tablet 10 mg PO TID naratriptan 2.5 mg Tablet 2.5 mg PO Q2H Rx Instructions: take one at onset of headache not more than 2 tabes in 24 hours cyanocobalamin (vitamin B-12) [Vitamin B-12] 500 mcg Tablet 500 mcg PO DAILY cholecalciferol (vitamin D3) 100 mcg (4,000 unit) Capsule 100 mcg PO DAILY Changed topiramate [Topamax] 50 MG tablet 75 mg PO DAILY Qty: 0 0RF Patient Comments: pt states that it is topiramate Discharge Instructions Additional Instructions: You were seen in the emergency department for your periods of confusion. Your brain MRI shows no signs of any acute abnormalities. As we discussed if you begin becoming nauseous and began vomiting please return to the emergency department. Please also return if you develop chest pain. Please consider taking a lower dose of your topiramate every night 75 mg for the next 2 weeks and following up with her primary care provider. Discharge Data Discharge Date/Time-TO BE ENTERED AT DEPARTURE: 03/27/24 15:17 HPI General Date/Time Provider Initiated Documentation: 03/27/24 10:42. HPI Narrative: MDM This is an overall very well-appearing afebrile and not tachycardic 58-year-old female with intermittent confusion over the past week concerning for brain metastasis versus TIA. No pain out of proportion to suggest necrotizing soft tissue infection. No tonic-clonic activity to suggest seizure so I do not feel that the patient requires an EEG. No fevers to suggest meningitis so I do not feel that the patient requires a lumbar puncture. Patient is not altered so my suspicion is low for encephalitis. No visual changes to suggest giant cell arteritis. No headache to suggest subarachnoid hemorrhage. No rash to suggest zoster. Will obtain CT head to assess for any obvious metastasis given breast cancer. I considered sepsis however the patient does not have vital signs consistent with sepsis so I did not draw blood cultures nor treat empirically with IV antibiotics. No dysuria no frequency to suggest UTI. Will assess labs to assess for any acute electrolyte abnormalities. 12:04 PM Base metabolic panel showing mild hypernatremia improved compared to prior. No MARK. Mild hyperglycemia but no anion gap normal bicarbonate??not consistent with DKA. Mild hypomagnesemia for which patient will receive oral repletion. Mildly elevated TSH. Pending free T4. CT head with no acute intracranial process CBC showing leukopenia similar to prior. No anemia. Mild new thrombocytopenia. 12:24 PM Reassuring free T4. 2:50 PM Patient had a reassuring brain MRI. She was not confused. I was in touch with her palliative care provider list who advised decreasing the patient's nightly topiramate from 100 to 75 mg. Note the patient and her advised that this change. We discussed that she should turn to the ED if she developed nausea vomiting or took any falls. I was in touch with [place]. Mattson from [facility] [place] who advised considering down titrating some of her medications. He found no reason to hospitalize the patient in setting of her reassuring ECG. Chronic conditions affecting the care of the patient: Breast cancer chemotherapy History obtained from an outside historian: Oncology team External record review: N/A Diagnostic interpretations performed by me: Per my independent interpretation chest x-ray shows: Per my independent interpretation EKG shows: Narrow complex normal sinus rhythm at a rate of 80. Normal axis. Intervals within normal limits. No ST segment abnormalities. No T wave inversions. No prior for comparison. ]Medications: N/A Social determinants of health affecting disposition: N/A Management discussed with: palliative care & neuro Treatment/interventions considered: N/A Response to therapies provided: N/A HPI This is a 58-year-old female with history of breast cancer on outpatient chemotherapy arrived emergency department via private vehicle in the setting of intermittent confusion. Patient notes that over the past week she has intermittently been confused. Oncology team noted that she was mildly hypernatremic today at clinic. She denies any weakness. She denies routine tobacco, ethanol, and illicits. She endorses intermittent forgetfulness and intermittent word finding difficulties. She has had no fevers nausea vomiting dysuria frequency nor shortness of breath. Exam General: Well-appearing in no acute distress speaking in complete sentences. Head: Normocephalic, atraumatic. Eye:[Pupils equal, round reactive to light.] Extraocular eye movements intact. No conjunctival injection. No scleral icterus. Ear, nose, mouth, throat: Grossly normal inspection. Normal voice, handling secretions normally. Neck: Trachea midline. Cardiovascular: Well-perfused distal extremities. Regular rate and rhythm. Respiratory: Nonlabored respiration. Clear lungs bilaterally. Gastrointestinal: Nondistended abdomen. Soft nontender Musculoskeletal: No edema. Moving all 4 extremities spontaneously. Skin: Normal for age and race, grossly normal temperature and turgor. No acute rash. Neurologic: Alert and appropriate, no apparent acute deficits. GCS 15. Cranial nerves II through XII intact grossly. Psychiatric: Mood and manner are appropriate. Grooming and personal hygiene are appropriate. Related Data Home Medications ?Medication ?Instructions ?Recorded ?Confirmed amitriptyline 10 mg tablet 10 mg PO TID 10/09/20 03/06/24 atorvastatin 10 mg tablet 10 mg PO DAILY 10/09/20 03/06/24 naratriptan 2.5 mg tablet 2.5 mg PO Q2H 10/09/20 03/06/24 cholecalciferol (vitamin D3) 100 100 mcg PO DAILY 10/13/20 03/06/24 mcg (4,000 unit) capsule cyanocobalamin (vitamin B-12) 500 500 mcg PO DAILY 10/13/20 03/06/24 mcg tablet (Vitamin B-12) loperamide 2 mg capsule 2 mg PO QID PRN 06/08/21 03/06/24 (Anti-Diarrheal (loperamide)) naloxone 4 mg/actuation nasal 4 mg intranasal Q2M PRN opioid 02/16/22 03/06/24 spray (Narcan) overdose #2 ea metoprolol succinate 25 mg 50 mg PO DAILY 05/12/22 03/06/24 tablet,extended release 24 hr diphenoxylate-atropine 2.5 See Rx Instructions PO QID PRN 10/19/22 03/06/24 mg-0.025 mg tablet diarrhea #60 tabs ondansetron HCl 4 mg tablet 4 mg PO Q6H PRN #30 tabs 10/19/22 03/06/24 phenazopyridine 100 mg tablet 100 mg PO TID PRN pain #20 tabs 04/05/23 03/06/24 (Pyridium) famotidine 20 mg tablet 20 mg PO BID 07/19/23 03/06/24 gabapentin 400 mg capsule 400 mg PO TID 07/19/23 03/06/24 lorazepam 0.5 mg tablet 0.5 mg PO BID PRN anxiety 30 days 07/20/23 03/06/24 #20 tabs sucralfate 1 gram tablet (Carafate) 1 g PO BID 08/30/23 03/06/24 fentanyl 50 mcg/hr transdermal 1 patch transdermal Q72H #10 ea 03/06/24 03/06/24 patch oxycodone 10 mg tablet 10 mg PO Q4H PRN pain #120 tabs 03/06/24 03/06/24 topiramate 25 mg capsule,extended 75 mg (3 x 25 mg) PO DAILY 2 weeks 12/03/24 release 24 hr #42 caps topiramate 50 mg tablet (Topamax) 75 mg (1.5 x 50 mg) PO DAILY #0 03/27/24 03/06/24 tabs Previous Rx's ?Medication ?Instructions ?Recorded naloxone 4 mg/actuation nasal 4 mg intranasal Q2M PRN opioid 02/16/22 spray (Narcan) overdose #2 ea diphenoxylate-atropine 2.5 See Rx Instructions PO QID PRN 10/19/22 mg-0.025 mg tablet diarrhea #60 tabs ondansetron HCl 4 mg tablet 4 mg PO Q6H PRN #30 tabs 10/19/22 phenazopyridine 100 mg tablet 100 mg PO TID PRN pain #20 tabs 04/05/23 (Pyridium) lorazepam 0.5 mg tablet 0.5 mg PO BID PRN anxiety 30 days 07/20/23 #20 tabs fentanyl 50 mcg/hr transdermal 1 patch transdermal Q72H #10 ea 03/06/24 patch oxycodone 10 mg tablet 10 mg PO Q4H PRN pain #120 tabs 03/06/24 topiramate 25 mg capsule,extended 75 mg (3 x 25 mg) PO DAILY 2 weeks 03/27/24 release 24 hr #42 caps topiramate 50 mg tablet (Topamax) 75 mg (1.5 x 50 mg) PO DAILY #0 03/27/24 tabs Allergies Allergy/AdvReac Type Severity Reaction Status Date / Time Iodinated Contrast Media Allergy Severe RASH, Verified 07/12/22 14:14 (Iodinated Contrast Media - THROAT IV Dye) SWELLING clonazepam Allergy Intermediate Itching Verified 07/12/22 14:14 coconut Allergy Intermediate Hives Verified 07/12/22 14:14 exemestane Allergy Other (See Verified 07/12/22 14:14 Comment) ketorolac (From Toradol) Allergy Itching Verified 07/12/22 14:14 morphine Allergy Hives Verified 07/12/22 14:14 prednisone Allergy Skin Rash Verified 07/12/22 14:14 sumatriptan (From Imitrex) Allergy Hives Verified 07/12/22 14:14 tizanidine Allergy Skin Rash Verified 07/12/22 14:14 cephalexin AdvReac Intermediate Vomiting Verified 07/12/22 14:14 ciprofloxacin AdvReac Intermediate vomiting Verified 07/12/22 14:14 acetaminophen (From Roxicet) AdvReac vomiting Verified 07/12/22 14:14 oxycodone (From Roxicet) AdvReac vomiting Verified 07/12/22 14:14 Penicillins AdvReac vomiting Verified 07/12/22 14:14 Sulfa (Sulfonamide AdvReac vomiting Verified 07/12/22 14:14 Antibiotics) General Stated Complaint: GenMedical JOEY: 3 Course Vital Signs Vital signs: Vital Signs Temperature 36.4 C L 03/27/24 10:43 Pulse 84 03/27/24 10:43 Respiratory Rate 15 03/27/24 10:43 Blood Pressure 113/65 03/27/24 10:43 Pulse Oximetry 95 03/27/24 10:43 Temperature 36.4 C L 03/27/24 10:43 Temperature Source Oral 03/27/24 10:43 Pulse 84 03/27/24 10:43 Respiratory Rate 15 03/27/24 10:43 Blood Pressure 113/65 03/27/24 10:43 Pulse Oximetry 95 03/27/24 10:43 Oxygen Delivery Method Room Air 03/27/24 10:43 Oxygen Flow Rate 0 03/27/24 10:43 Medical Decision Making Quality:SDOH Health Related Social Needs: No Data to Display PFSH All Active Problems (Updated 03/27/24 @ 15:04 by Lalo Goyal MD) Transient confusion (Acute) Adjustment reaction with anxiety and depression (Acute) Conflict between patient and family (Acute) Diarrhea (Acute) Advance care planning (Acute) Full code status (Acute) Palliative care patient (Acute) Financial difficulties (Acute) Anxiety (Chronic) Nausea (Acute) Irregular bowel habits (Acute) Pleural effusion (Acute) Chest tube in place (Acute) Cancer related pain (Acute) Osseous metastasis (Acute) 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 (Acute) Medical History (Updated 03/27/24 @ 15:04 by Lalo Goyal MD) Cardiomyopathy Bladder disorder bladder muscle dysfunction: overactive Pain, joint, shoulder, right Adhesive capsulitis History of multiple allergies Localized enlarged lymph nodes Spondylosis Osteopenia Muscle weakness LUE Thoracic back pain Abscess of skin and subcutaneous tissue Atrophic vaginitis Dyspareunia Diverticulosis of sigmoid colon GERD (gastroesophageal reflux disease) Arteriosclerotic vascular disease Cataract Migraine without aura Insomnia Claustrophobia Overweight Hyperlipemia Carcinoma of left breast Surgical History Hx of cholecystectomy Hx of cataract surgery Hx of hysterectomy Hx of mastectomy bilateral Social History Smoking/Tobacco Use Status: Former Tobacco Use Smoking risk assessment performed?: Yes Alcohol Intake: current Alcohol Intake frequency: holidays/special occasions only Drug use: Never Household members: spouse What is your relationship status?: Panel score (0-1 are the most socially isolated patients): 1 Additional Social history: unable to assess privately
[2024-03-27 11:21] LABS: Abs Immature Grans 0.01 10^3/uL (0.0-0.06); Absolute Basophil Count 0.05 10^3/uL (0.0-0.2); Absolute Eosinophil Count 0.25 10^3/uL (0.0-0.7); Absolute Lymphocyte Count 1.15 10^3/uL (1.2-3.4); Absolute Monocyte Count 0.44 10^3/uL (0.1-0.8); Absolute Neutrophil Count 2.38 10^3/uL (1.2-6.7); Basophils % 1.2 %; Eosinophils % 5.8 %; HCT 35.9 % (36.0-46.0); HGB 11.5 g/dL (11.2-15.7); Immature Grans % 0.2 %; Lymphocytes % 26.9 %; MCH 29.7 pg (27.0-33.0); MCV 93 fL (80-95); MPV 9.7 fL (8.0-11.0); Monocytes % 10.3 %; Neutrophils % 55.6 %; Platelet Count 124 10^3/uL (130-400); RBC 3.87 10^6/uL (3.93-5.22); RDW 14.9 % (11.7-14.6); RDW-SD 51.5 fL; WBC 4.28 10^3/uL (4.4-10.8)
--- NOTE | 2024-03-27 11:30 | DI.MRI_ITS ---
Exam(s) MR BRAIN WO/W EXAM: MR BRAIN WO/W CLINICAL HISTORY: Intermittent confusion breast cancer. TECHNIQUE: Multiplanar multisequence MRI of the brain was performed. CONTRAST MATERIAL: IV Contrast: 16 ML of Dotarem contrast administered. COMPARISON: CT CT HEAD WO from 03/27/2024 FINDINGS: VENTRICLES AND EXTRA AXIAL SPACES: Normal in size and morphology for the patient's age. HEMORRHAGE: None. CEREBRAL PARENCHYMA: No focus of restricted diffusion to suggest acute infarct. No space-occupying le molnia identified. Small scattered foci of high signal in the white matter which may represent micro vascular disease. Mild atrophy. BRAINSTEM/CEREBELLUM: Normal. CALVARIUM: Normal. ENHANCEMENT: No suspicious enhancement identified. VISUALIZED PARANASAL SINUSES/MASTOIDS: Clear. Orbits: Unremarkable. Pituitary: Not enlarged. Vasculature: Normal flow voids. IMPRESSION: No evidence of acute infarct or metastatic disease. Mild white matter foci which could be secondary to microvascular disease. DATA REPOSITORY:
--- NOTE | 2024-03-27 11:33 | DI.CT_ITS ---
Exam(s) CT HEAD WO EXAM: CT HEAD WO CLINICAL HISTORY: Confusion breast cancer. TECHNIQUE: Imaging Protocol: Axial computed tomography images with coronal and sagittal reformatted images were created and reviewed COMPARISON: MR MR BRAIN WO/W from 05/21/2021 FINDINGS: Ventricles and Extra axial spaces: Normal in size and morphology for the patient's age. Hemorrhage: None. Cerebral parenchyma: No evidence of acute infarct or mass. Midline shift: None. Brainstem/Cerebellum: Normal. Calvarium: Normal. Visualized Paranasal sinuses:Clear. Mastoids: Clear. Soft Tissues: Unremarkable. ORBITS: Unremarkable. PITUITARY: Not enlarged. IMPRESSION: No acute intracranial process. RADIATION DOSE DELIVERED: 853.31mGy.cm Total DLP DATA REPOSITORY: All CT scans at this facility are submitted to the National Radiology Data Registry (NRDR) Dose Index Registry (DIR) with the [employer] (A[employer]). RADIATION OPTIMIZATION: All CT scans at this facility use at least one of these dose optimization te chniques: automated exposure control; mA and/or kV adjustment per patient size (includes targeted exa ms where dose is matched to clinical indication); or iterative reconstruction.
[2024-03-27 11:48] LABS: Anion Gap 10.4 mmol/L (3-11); BUN 11 mg/dL (7-18); CO2 25.6 mmol/L (21.0-32.0); Calcium 8.6 mg/dL (8.5-10.1); Chloride 111 mmol/L (98-107); Glucose 144 mg/dL (74-106); Magnesium 1.6 mg/dL (1.8-2.4); Potassium 3.4 mmol/L (3.5-5.1); Sodium 147 mmol/L (136-145); TSH (W/Ref FT4) 3.78 uIU/mL (0.36-3.74)
[2024-03-27] MEDS: Normal Saline Flush 10 ML SYR IVP (12:04)
[2024-03-27 12:05] LABS: FREE T4 0.77 ng/dL (0.76-1.46)
[2024-03-27] MEDS: Gadoterate meglumine 20 ML SYRINGE 16 ML IVP (12:05)
[2024-03-27] MEDS: Magnesium Oxide 400 MG TAB PO (13:09)
[2024-03-27] MEDS: Heparin 500 UNITS/5 ML SYRINGE (15:15)
== END 2024-03-27 15:17 | disposition home or self-care (01) ==
PROVIDERS: Emergency Provider Emergency Medicine; PCP Physician Assistant Medical
DX: R41.0 Disorientation, unspecified (principal); C50.912 Malignant neoplasm of unspecified site of left female breast; E87.0 Hyperosmolality and hypernatremia; E83.42 Hypomagnesemia; D75.839 Thrombocytosis, unspecified; Z92.21 Personal history of antineoplastic chemotherapy; Z87.891 Personal history of nicotine dependence
CPT/HCPCS: 36415; 70553; 80048; 93005; 99285; 70450; 83735; 84439; 84443; 85025; 93010; J1642

== ENCOUNTER 2024-04-24 01:56 | Outpatient (RCR) | payer MEDICAID, SELFPAY ==
[2024-03-27 09:38] LABS: Abs Immature Grans 0.02 10^3/uL (0.0-0.06); Absolute Basophil Count 0.04 10^3/uL (0.0-0.2); Absolute Eosinophil Count 0.26 10^3/uL (0.0-0.7); Absolute Lymphocyte Count 1.27 10^3/uL (1.2-3.4); Absolute Monocyte Count 0.41 10^3/uL (0.1-0.8); Absolute Neutrophil Count 2.34 10^3/uL (1.2-6.7); Basophils % 0.9 %; HCT 36.1 % (36.0-46.0); HGB 11.7 g/dL (11.2-15.7); Immature Grans % 0.5 %; Lymphocytes % 29.3 %; MCH 29.6 pg (27.0-33.0); MCHC 32.4 % (32.0-36.0); MCV 91 fL (80-95); MPV 9.4 fL (8.0-11.0); Monocytes % 9.4 %; Neutrophils % 53.9 %; Platelet Count 151 10^3/uL (130-400); RBC 3.95 10^6/uL (3.93-5.22); RDW 14.9 % (11.7-14.6); RDW-SD 50.1 fL; WBC 4.34 10^3/uL (4.4-10.8)
[2024-03-27 09:53] LABS: ALT 23 U/L (14-59); AST 23 U/L (15-37); Albumin 2.9 g/dL (3.4-5.0); Alkaline Phosphatase 92 U/L (46-116); Anion Gap 8.2 mmol/L (3-11); BUN 10 mg/dL (7-18); Bilirubin, Total 0.44 mg/dL (0.2-1.0); CO2 27.8 mmol/L (21.0-32.0); Calcium 8.9 mg/dL (8.5-10.1); Chloride 113 mmol/L (98-107); Glucose 106 mg/dL (74-106); Potassium 3.4 mmol/L (3.5-5.1); Sodium 149 mmol/L (136-145); Total Protein 6.3 g/dL (6.4-8.2)
[2024-03-27] MEDS: Normal Saline Flush 10 ML SYR IVP (10:24)
[2024-03-29 12:04] LABS: Cancer Ag 15-3 30 U/mL (<30)
[2024-04-03] MEDS: Normal Saline Flush 10 ML SYR IVP (09:22)
[2024-04-03 09:33] LABS: Abs Immature Grans 0.04 10^3/uL (0.0-0.06); Absolute Basophil Count 0.06 10^3/uL (0.0-0.2); Absolute Eosinophil Count 0.27 10^3/uL (0.0-0.7); Absolute Lymphocyte Count 1.58 10^3/uL (1.2-3.4); Absolute Monocyte Count 0.64 10^3/uL (0.1-0.8); Absolute Neutrophil Count 3.46 10^3/uL (1.2-6.7); Eosinophils % 4.5 %; HCT 38.8 % (36.0-46.0); HGB 12.4 g/dL (11.2-15.7); Immature Grans % 0.7 %; Lymphocytes % 26.1 %; MCH 29.5 pg (27.0-33.0); MCV 92 fL (80-95); MPV 9.6 fL (8.0-11.0); Monocytes % 10.6 %; Neutrophils % 57.1 %; Platelet Count 151 10^3/uL (130-400); RDW 14.6 % (11.7-14.6); RDW-SD 49.5 fL; WBC 6.05 10^3/uL (4.4-10.8)
[2024-04-03 09:53] LABS: ALT 27 U/L (14-59); AST 32 U/L (15-37); Alkaline Phosphatase 102 U/L (46-116); Anion Gap 7.9 mmol/L (3-11); BUN 10 mg/dL (7-18); Bilirubin, Total 0.38 mg/dL (0.2-1.0); CO2 27.1 mmol/L (21.0-32.0); Calcium 9.2 mg/dL (8.5-10.1); Chloride 111 mmol/L (98-107); Estimated GFR 64.49 (mL/min/1.73m2); Glucose 105 mg/dL (74-106); Potassium 3.7 mmol/L (3.5-5.1); Sodium 146 mmol/L (136-145); Total Protein 6.7 g/dL (6.4-8.2)
[2024-04-05 11:27] LABS: Cancer Ag 15-3 30 U/mL (<30)
[2024-04-24] MEDS: Normal Saline Flush 10 ML SYR IVP (08:43)
[2024-04-24 08:46] LABS: Abs Immature Grans 0.03 10^3/uL (0.0-0.06); Absolute Basophil Count 0.03 10^3/uL (0.0-0.2); Absolute Eosinophil Count 0.18 10^3/uL (0.0-0.7); Absolute Lymphocyte Count 1.57 10^3/uL (1.2-3.4); Absolute Monocyte Count 0.57 10^3/uL (0.1-0.8); Basophils % 0.6 %; Eosinophils % 3.8 %; HCT 35.6 % (36.0-46.0); HGB 11.5 g/dL (11.2-15.7); Immature Grans % 0.6 %; Lymphocytes % 32.8 %; MCH 29.3 pg (27.0-33.0); MCHC 32.3 % (32.0-36.0); MCV 91 fL (80-95); MPV 8.6 fL (8.0-11.0); Monocytes % 11.9 %; Neutrophils % 50.3 %; Platelet Count 202 10^3/uL (130-400); RBC 3.92 10^6/uL (3.93-5.22); RDW 14.9 % (11.7-14.6); RDW-SD 49.5 fL; WBC 4.78 10^3/uL (4.4-10.8)
[2024-04-24 09:18] LABS: ALT 24 U/L (14-59); AST 29 U/L (15-37); Albumin 2.9 g/dL (3.4-5.0); Alkaline Phosphatase 87 U/L (46-116); Anion Gap 5.3 mmol/L (3-11); BUN 7 mg/dL (7-18); Bilirubin, Total 0.48 mg/dL (0.2-1.0); CO2 30.7 mmol/L (21.0-32.0); CREATININE 0.9 mg/dL (0.55-1.02); Calcium 10.2 mg/dL (8.5-10.1); Chloride 110 mmol/L (98-107); Estimated GFR 73.19 (mL/min/1.73m2); Glucose 92 mg/dL (74-106); Potassium 3.8 mmol/L (3.5-5.1); Sodium 146 mmol/L (136-145); Total Protein 6.3 g/dL (6.4-8.2)
[2024-04-26 12:47] LABS: Cancer Ag 15-3 33 U/mL (<30)
== END 2024-04-24 23:59 | disposition home or self-care (01) ==
LOC: INF 01:56
PROVIDERS: PCP Physician Assistant Medical; Visit Provider Nurse Practitioner
DX: C50.919 Malignant neoplasm of unspecified site of unspecified female breast (principal); C79.51 Secondary malignant neoplasm of bone; Z79.899 Other long term (current) drug therapy; Z45.2 Encounter for adjustment and management of vascular access device
CPT/HCPCS: 36591; 80053; 86300; 85025

== ENCOUNTER 2024-05-15 11:58 | Outpatient (RCR) | payer MEDICARE, MEDICAID, SELFPAY ==
[2024-05-15 12:08] LABS: Abs Immature Grans 0.02 10^3/uL (0.0-0.06); Absolute Basophil Count 0.04 10^3/uL (0.0-0.2); Absolute Eosinophil Count 0.18 10^3/uL (0.0-0.7); Absolute Lymphocyte Count 1.34 10^3/uL (1.2-3.4); Absolute Monocyte Count 0.54 10^3/uL (0.1-0.8); Absolute Neutrophil Count 3.37 10^3/uL (1.2-6.7); Basophils % 0.7 %; Eosinophils % 3.3 %; HCT 37.3 % (36.0-46.0); HGB 11.9 g/dL (11.2-15.7); Immature Grans % 0.4 %; Lymphocytes % 24.4 %; MCH 29.4 pg (27.0-33.0); MCHC 31.9 % (32.0-36.0); MCV 92 fL (80-95); MPV 9.1 fL (8.0-11.0); Monocytes % 9.8 %; Neutrophils % 61.4 %; Platelet Count 165 10^3/uL (130-400); RBC 4.05 10^6/uL (3.93-5.22); RDW 14.5 % (11.7-14.6); RDW-SD 48.6 fL; WBC 5.49 10^3/uL (4.4-10.8)
[2024-05-15 12:25] LABS: ALT 20 U/L (14-59); AST 24 U/L (15-37); Albumin 2.8 g/dL (3.4-5.0); Alkaline Phosphatase 93 U/L (46-116); Anion Gap 6.8 mmol/L (3-11); BUN 10 mg/dL (7-18); Bilirubin, Total 0.34 mg/dL (0.2-1.0); CO2 27.2 mmol/L (21.0-32.0); CREATININE 0.9 mg/dL (0.55-1.02); Calcium 9.1 mg/dL (8.5-10.1); Chloride 112 mmol/L (98-107); Estimated GFR 73.19 (mL/min/1.73m2); Glucose 105 mg/dL (74-106); Sodium 146 mmol/L (136-145); Total Protein 6.2 g/dL (6.4-8.2)
[2024-05-15] MEDS: Normal Saline Flush 10 ML SYR IVP (13:56)
[2024-05-16 15:49] LABS: Cancer Ag 15-3 33 U/mL (<30)
== END 2024-05-25 23:59 | disposition home or self-care (01) ==
LOC: INF 11:58
PROVIDERS: PCP Family Medicine; Visit Provider Nurse Practitioner
DX: C50.919 Malignant neoplasm of unspecified site of unspecified female breast (principal); C79.51 Secondary malignant neoplasm of bone; Z79.899 Other long term (current) drug therapy
CPT/HCPCS: 36591; 80053; 86300; 85025

== ENCOUNTER 2024-05-24 03:02 | Outpatient (CLI) | payer MEDICARE, MEDICAID, SELFPAY ==
--- NOTE | 2024-05-24 12:30 | DI.US_ITS ---
APPROVED REPORT EXAM: Comprehensive 2D, Doppler, and color-flow Echocardiogram Patient Location: Out-Patient [employer] Athlete: Henrry Michaud RDCS (AE) Indications: High risk medication use, breast cancer Conclusion Normal left ventricular wall thickness and chamber size. Ejection fraction is 50 to 55%. There are no segmental wall motion abnormalities Normal right ventricular size and function Both atria are normal in size There are no structural valvular abnormalities Trace aortic, mitral, and tricuspid regurgitation Estimated right ventricular systolic pressure is 26 mmHg Wall motion Left Ventricle The left ventricle is normal size. The left ventricular systolic function is normal. The left ventric ular ejection fraction is within the normal range. There is normal left ventricular wall thickness. T here are no segmental wall motion abnormalities There is no ventricular septal defect visualized. LVE F is 50-55%. Right Ventricle The right ventricle is normal size. The right ventricular systolic function is normal. Atria The left atrium size is normal. The right atrium size is normal. The interatrial septum is intact wit h no evidence for an atrial septal defect. Aortic Valve The aortic valve is normal in structure. Aortic valve is trileaflet. There is no aortic valvular sten osis. Trace aortic regurgitation. Mitral Valve The mitral valve is normal in structure. No evidence of mitral valve stenosis. Trace to mild mitral r egurgitation. Tricuspid Valve The tricuspid valve is normal in structure. There is no tricuspid valve stenosis. Trace tricuspid reg urgitation. The RVSP is 26 mmHg. Pulmonic Valve The pulmonary valve is normal in structure. There is no pulmonic valvular stenosis. There is no pulmo adrienne valvular regurgitation. Great Vessels The aortic root is normal in size. The ascending aorta is normal in size. Aortic arch is normal in ca liber. IVC is normal in size and collapses >50% with inspiration. Pericardium There is no pericardial effusion. 2D Dimensions IVSD d PLAX 0.69 cm F: 0.6-1.0 Ao Root d 2.65 cm F: 2.7 - 3.3 LVPW d PLAX 0.68 cm F: 0.6 - 1.0 Ao Asc Diam d 2.96 cm F: 2.3 - 3.1 LVID d PLAX 4.63 cm F: 3.8 - 5.2 LVDs 3.39 cm F: 2.2 - 3.5 LV EF Teichholz 52.3 % FS 26.77 % LV EDV (Teich) 98.8 mL LV ESV (Teich) 47.1 mL Stroke Vol Index (Teich) 27.94 M-Mode TAPSE 1.87 cm (M/F) >1.7 Auto EF LV EDV A4C 60.7 mL LV EDV A2C 97.3 mL LV EDV BP 77.2 mL LV ESV A4C 31.3 mL LV ESV A2C 45.6 mL LV ESV BP 37.8 mL LVEF(%) A4C 48.5 % LVEF(%) A2C 53.2 % LVEF(%) BP 51.0 % LV SV A4C 29.4 ml LV SV A2C 51.8 ml LV SV BP 39.4 ml LV CO A4C 2.6 L/min LV CO A2C 4.4 L/min LV CO BP 3.5 L/min HR A4C 87.17 BPM HR A2C 84.91 BPM LV EDV Index (BP) LV Strain Long Pk Overal Avg (s) 15.66 LA Volume LA Length A4C 3.4 cm LA Length A2C 3.8 cm LA Area A4C s 5.32 cm2 LA Area A2C s 10.29 cm2 LA Vol A4C A-L 7.00 mL LA Vol A2C A-L 23.61 mL LA Vol Biplane A-L 13.5 mL LA Vol/BSA A4C A-L LA Vol/BSA A2C A-L LA Vol/BSA BP A-L 7.3 mL/m2 LA Vol A4C MOD 6.3 mL LA Vol A2C MOD 22.7 mL LA Vol BP MOD 12.4 mL RA Volume RA Area A4C 6.7 cm2 RA ESV A4C (A-L) 11.1mL RA Vol/BSA A4C A-L RA Length A4C 3.4 cm RA ESV A4C (MOD) 11.0mL LV Diastology MV E' medial 0.079 (>0.07 m/s) MV E Vmax 0.50 (0.4-1.3 m/s) MV E/E' MED 6.26 (<14) MV A Vmax 0.75 (0.4-1.3 m/s) MV E' lateral 0.071 (>0.1 m/s) E/A Ratio 0.7 MV E/E' LAT 6.97 (<14) MV E' Average 0.075 m/s MV E/E'(average) 6.60 Aortic Valve AoV Vmax 1.15 m/s LVOT Vmax 0.93 m/s AoV Peak Grad 34.0 mmHg LVOT Peak Grad 3.4 mmHg AoV Area (Vmax) 2.18 cm2 LVOT VTI 0.197 m AoV VTI 0.235 m LVOT Mean Grad 1.7 mmHg AoV Mean Chavez. 0.83 m/s LVOT SV 53.42 mL AoV Mean Grad 3.1 mmHg LVOT Diam s 1.85 cm AoV Area (VTI) 2.28 cm2 AV Regurg Peak Gr. 5.33 mmHg Velocity Ratio 0.81 AR Decel [place] 2.4m/sec2 AR DT 1646 msec AR PHT 477 msec AR Vmax 3.96 m/s Pulmonary Valve PV Vmax 0.97 (0.5-1.5 m/s) RVOT Vmax 0.57 m/s PV Peak Grad 3.7 mmHg RVOT Peak Gr. 1.3 mmHg PV Mean Chavez 0.70 m/s RVOT VTI 0.110 m PV Mean Grad 2.0 mmHg RVOT Mean Gr. 0.8 mmHg Tricuspid Valve RA Pressure 3.00 mmHg TR Vmax 2.40 m/s TR Peak Grad 23.0 mmHg RVSP (TR) 26.0 mmHg
== END 2024-05-24 03:22 ==
PROVIDERS: PCP Family Medicine; Visit Provider Internal Medicine Cardiovascular Disease
DX: I08.3 Combined rheumatic disorders of mitral, aortic and tricuspid valves (principal); C79.89 Secondary malignant neoplasm of other specified sites; Z17.31 Human epidermal growth factor receptor 2 positive status; Z79.899 Other long term (current) drug therapy; C50.912 Malignant neoplasm of unspecified site of left female breast
CPT/HCPCS: 93306

== ENCOUNTER 2024-06-12 04:13 | Outpatient (RCR) | payer MEDICARE, MEDICAID, SELFPAY ==
[2024-06-12] MEDS: Normal Saline Flush 10 ML SYR IVP (08:37)
[2024-06-12 08:41] LABS: Abs Immature Grans 0.24 10^3/uL (0.0-0.06); Absolute Basophil Count 0.03 10^3/uL (0.0-0.2); Absolute Eosinophil Count 0.09 10^3/uL (0.0-0.7); Absolute Lymphocyte Count 1.99 10^3/uL (1.2-3.4); Absolute Monocyte Count 0.73 10^3/uL (0.1-0.8); Absolute Neutrophil Count 7.37 10^3/uL (1.2-6.7); Basophils % 0.3 %; Eosinophils % 0.9 %; HCT 42.7 % (36.0-46.0); HGB 13.6 g/dL (11.2-15.7); Immature Grans % 2.3 %; MCH 28.6 pg (27.0-33.0); MCHC 31.9 % (32.0-36.0); MCV 90 fL (80-95); MPV 9.7 fL (8.0-11.0); Neutrophils % 70.5 %; Platelet Count 160 10^3/uL (130-400); RBC 4.76 10^6/uL (3.93-5.22); RDW 14.5 % (11.7-14.6); RDW-SD 47.8 fL; WBC 10.45 10^3/uL (4.4-10.8)
[2024-06-12 09:02] LABS: ALT 45 U/L (14-59); AST 19 U/L (15-37); Albumin 3.1 g/dL (3.4-5.0); Alkaline Phosphatase 62 U/L (46-116); BUN 21 mg/dL (7-18); Bilirubin, Total 0.42 mg/dL (0.2-1.0); Calcium 9.5 mg/dL (8.5-10.1); Chloride 111 mmol/L (98-107); Estimated GFR 64.49 (mL/min/1.73m2); Glucose 124 mg/dL (74-106); Sodium 147 mmol/L (136-145); Total Protein 6.5 g/dL (6.4-8.2)
[2024-06-13 19:18] LABS: Cancer Ag 15-3 27 U/mL (<30)
== END 2024-06-22 23:59 | disposition home or self-care (01) ==
LOC: INF 04:13
PROVIDERS: PCP Family Medicine; Visit Provider Nurse Practitioner
DX: C50.919 Malignant neoplasm of unspecified site of unspecified female breast (principal); C79.51 Secondary malignant neoplasm of bone; Z79.899 Other long term (current) drug therapy
CPT/HCPCS: 36591; 80053; 86300; 85025

== ENCOUNTER 2024-07-17 01:45 | Outpatient (RCR) | payer MEDICARE, MEDICAID, SELFPAY ==
[2024-07-17] MEDS: Normal Saline Flush 10 ML SYR IVP (13:15)
[2024-07-17 13:22] LABS: Abs Immature Grans 0.16 10^3/uL (0.0-0.06); Absolute Basophil Count 0.06 10^3/uL (0.0-0.2); Absolute Lymphocyte Count 1.77 10^3/uL (1.2-3.4); Absolute Monocyte Count 0.51 10^3/uL (0.1-0.8); Basophils % 0.5 %; Eosinophils % 0.2 %; HCT 42.9 % (36.0-46.0); HGB 13.4 g/dL (11.2-15.7); Immature Grans % 1.3 %; Lymphocytes % 14.3 %; MCH 27.3 pg (27.0-33.0); MCHC 31.2 % (32.0-36.0); MCV 87 fL (80-95); MPV 9.5 fL (8.0-11.0); Monocytes % 4.1 %; Neutrophils % 79.6 %; Platelet Count 149 10^3/uL (130-400); RBC 4.91 10^6/uL (3.93-5.22); RDW 14.3 % (11.7-14.6); RDW-SD 45.8 fL; WBC 12.36 10^3/uL (4.4-10.8)
[2024-07-17 13:24] LABS: Absolute Eosinophil Count 0.02 10^3/uL (0.0-0.7); Absolute Neutrophil Count 9.84 10^3/uL (1.2-6.7)
[2024-07-17 13:38] LABS: ALT 37 U/L (14-59); AST 23 U/L (15-37); Albumin 3.5 g/dL (3.4-5.0); Alkaline Phosphatase 75 U/L (46-116); Anion Gap 7.7 mmol/L (3-11); BUN 22 mg/dL (7-18); Bilirubin, Total 0.4 mg/dL (0.2-1.0); CO2 28.3 mmol/L (21.0-32.0); CREATININE 1.2 mg/dL (0.55-1.02); Calcium 9.7 mg/dL (8.5-10.1); Chloride 108 mmol/L (98-107); Estimated GFR 51.82 (mL/min/1.73m2); Glucose 119 mg/dL (74-106); Potassium 3.9 mmol/L (3.5-5.1); Sodium 144 mmol/L (136-145); Total Protein 7.2 g/dL (6.4-8.2)
[2024-07-19 10:58] LABS: Cancer Ag 15-3 22 U/mL (<30)
== END 2024-07-23 23:59 | disposition home or self-care (01) ==
LOC: INF 01:45
PROVIDERS: PCP Family Medicine; Visit Provider Nurse Practitioner
DX: C50.919 Malignant neoplasm of unspecified site of unspecified female breast (principal); C79.51 Secondary malignant neoplasm of bone; Z79.899 Other long term (current) drug therapy
CPT/HCPCS: 36591; 80053; 86300; 85025

== ENCOUNTER 2024-09-11 09:38 | Outpatient (RCR) | payer MEDICARE, MEDICAID, SELFPAY ==
[2024-09-11 10:19] LABS: Abs Immature Grans 0.02 10^3/uL (0.0-0.06); Absolute Basophil Count 0.03 10^3/uL (0.0-0.2); Absolute Eosinophil Count 0.12 10^3/uL (0.0-0.7); Absolute Lymphocyte Count 1.44 10^3/uL (1.2-3.4); Absolute Monocyte Count 0.44 10^3/uL (0.1-0.8); Absolute Neutrophil Count 3.16 10^3/uL (1.2-6.7); Basophils % 0.6 %; Eosinophils % 2.3 %; HCT 37.8 % (36.0-46.0); HGB 11.9 g/dL (11.2-15.7); Immature Grans % 0.4 %; Lymphocytes % 27.6 %; MCHC 31.5 % (32.0-36.0); MCV 86 fL (80-95); MPV 9.5 fL (8.0-11.0); Monocytes % 8.4 %; Neutrophils % 60.7 %; Platelet Count 128 10^3/uL (130-400); RDW 14.4 % (11.7-14.6); WBC 5.21 10^3/uL (4.4-10.8)
[2024-09-11 10:37] LABS: ALT 41 U/L (14-59); AST 34 U/L (15-37); Albumin 2.9 g/dL (3.4-5.0); Alkaline Phosphatase 97 U/L (46-116); Anion Gap 9.5 mmol/L (3-11); BUN 6 mg/dL (7-18); Bilirubin, Total 0.5 mg/dL (0.2-1.0); CO2 26.5 mmol/L (21.0-32.0); CREATININE 1.1 mg/dL (0.55-1.02); Calcium 9.3 mg/dL (8.5-10.1); Chloride 110 mmol/L (98-107); Estimated GFR 57.52 (mL/min/1.73m2); Glucose 141 mg/dL (74-106); Potassium 3.5 mmol/L (3.5-5.1); Sodium 146 mmol/L (136-145); Total Protein 6.2 g/dL (6.4-8.2)
[2024-09-11] MEDS: Normal Saline Flush 10 ML SYR IVP (10:44)
[2024-09-12 19:08] LABS: Cancer Ag 15-3 19 U/mL (<30)
== END 2024-09-22 23:59 | disposition home or self-care (01) ==
LOC: INF 09:38
PROVIDERS: Nurse Practitioner; PCP Family Medicine; Visit Provider Internal Medicine
DX: C50.919 Malignant neoplasm of unspecified site of unspecified female breast (principal); C79.51 Secondary malignant neoplasm of bone; Z79.899 Other long term (current) drug therapy; Z45.2 Encounter for adjustment and management of vascular access device
CPT/HCPCS: 36591; 80053; 86300; 85025

== ENCOUNTER 2024-10-16 02:49 | Outpatient (RCR) | payer MEDICARE, MEDICAID, SELFPAY ==
[2024-10-16 10:05] LABS: Abs Immature Grans 0.01 10^3/uL (0.0-0.06); Absolute Basophil Count 0.03 10^3/uL (0.0-0.2); Absolute Eosinophil Count 0.17 10^3/uL (0.0-0.7); Absolute Lymphocyte Count 1.55 10^3/uL (1.2-3.4); Absolute Monocyte Count 0.45 10^3/uL (0.1-0.8); Absolute Neutrophil Count 2.77 10^3/uL (1.2-6.7); Basophils % 0.6 %; Eosinophils % 3.4 %; HCT 38.5 % (36.0-46.0); Immature Grans % 0.2 %; Lymphocytes % 31.1 %; MCH 26.8 pg (27.0-33.0); MCHC 31.2 % (32.0-36.0); MCV 86 fL (80-95); MPV 9.6 fL (8.0-11.0); Neutrophils % 55.7 %; Platelet Count 158 10^3/uL (130-400); RBC 4.48 10^6/uL (3.93-5.22); RDW 13.8 % (11.7-14.6); RDW-SD 43.4 fL; WBC 4.98 10^3/uL (4.4-10.8)
[2024-10-16 11:22] LABS: ALT 23 U/L (14-59); AST 25 U/L (15-37); Alkaline Phosphatase 81 U/L (46-116); Anion Gap 7.5 mmol/L (3-11); BUN 7 mg/dL (7-18); Bilirubin, Total 0.6 mg/dL (0.2-1.0); CO2 26.5 mmol/L (21.0-32.0); CREATININE 1.1 mg/dL (0.55-1.02); Calcium 8.9 mg/dL (8.5-10.1); Chloride 110 mmol/L (98-107); Estimated GFR 57.52 (mL/min/1.73m2); Glucose 113 mg/dL (74-106); Potassium 3.8 mmol/L (3.5-5.1); Sodium 144 mmol/L (136-145); Total Protein 6.4 g/dL (6.4-8.2)
[2024-10-18 14:05] LABS: Cancer Ag 15-3 20 U/mL (<30)
== END 2024-10-22 23:59 | disposition home or self-care (01) ==
LOC: INF 02:49
PROVIDERS: PCP Family Medicine; Visit Provider Internal Medicine
DX: C50.919 Malignant neoplasm of unspecified site of unspecified female breast (principal)
CPT/HCPCS: 80053; 86300; 85025

== ENCOUNTER 2024-11-27 09:11 | Outpatient (RCR) | payer MEDICARE, MEDICAID, SELFPAY ==
[2024-11-27 09:20] LABS: Abs Immature Grans 0.02 10^3/uL (0.0-0.06); HCT 38.3 % (36.0-46.0); HGB 12.4 g/dL (11.2-15.7); Immature Grans % 0.3 %; MCH 26.6 pg (27.0-33.0); MCHC 32.4 % (32.0-36.0); MCV 82 fL (80-95); MPV 9.6 fL (8.0-11.0); Platelet Count 142 10^3/uL (130-400); RBC 4.67 10^6/uL (3.93-5.22); RDW 13.2 % (11.7-14.6); RDW-SD 39.4 fL; WBC 6.03 10^3/uL (4.4-10.8)
[2024-11-27 09:41] LABS: ALT 26 U/L (14-59); AST 25 U/L (15-37); Albumin 3.5 g/dL (3.4-5.0); Alkaline Phosphatase 89 U/L (46-116); Anion Gap 7.4 mmol/L (3-11); BUN 14 mg/dL (7-18); Bilirubin, Total 0.6 mg/dL (0.2-1.0); CO2 27.6 mmol/L (21.0-32.0); Calcium 9.5 mg/dL (8.5-10.1); Chloride 106 mmol/L (98-107); Estimated GFR 64.49 (mL/min/1.73m2); Glucose 113 mg/dL (74-106); Potassium 3.7 mmol/L (3.5-5.1); Sodium 141 mmol/L (136-145); Total Protein 6.8 g/dL (6.4-8.2)
[2024-11-27] MEDS: Normal Saline Flush 10 ML SYR IVP (10:12)
[2024-11-29 15:23] LABS: Cancer Ag 15-3 19 U/mL (<30)
== END 2024-12-23 23:59 | disposition home or self-care (01) ==
LOC: INF 09:11
PROVIDERS: PCP Family Medicine; Visit Provider Internal Medicine
DX: C50.911 Malignant neoplasm of unspecified site of right female breast (principal); C79.51 Secondary malignant neoplasm of bone; Z79.899 Other long term (current) drug therapy
CPT/HCPCS: 36591; 80053; 86300; 85025

== ENCOUNTER 2025-01-08 04:07 | Outpatient (RCR) | payer MEDICARE, MEDICAID, SELFPAY ==
[2025-01-08 10:19] LABS: Abs Immature Grans 0.02 10^3/uL (0.0-0.06); HCT 41.9 % (36.0-46.0); HGB 13.4 g/dL (11.2-15.7); Immature Grans % 0.3 %; MCH 26.6 pg (27.0-33.0); MCHC 32.0 % (32.0-36.0); MCV 83 fL (80-95); MPV 9.3 fL (8.0-11.0); Platelet Count 182 10^3/uL (130-400); RBC 5.03 10^6/uL (3.93-5.22); RDW 13.9 % (11.7-14.6); RDW-SD 41.5 fL; WBC 7.32 10^3/uL (4.4-10.8)
[2025-01-08 10:40] LABS: ALT 24 U/L (14-59); AST 18 U/L (15-37); Albumin 3.5 g/dL (3.4-5.0); Alkaline Phosphatase 94 U/L (46-116); Anion Gap 8.6 mmol/L (3-11); BUN 16 mg/dL (7-18); Bilirubin, Total 0.4 mg/dL (0.2-1.0); CO2 26.4 mmol/L (21.0-32.0); Calcium 9.5 mg/dL (8.5-10.1); Chloride 108 mmol/L (98-107); Glucose 110 mg/dL (74-106); Potassium 3.9 mmol/L (3.5-5.1); Sodium 143 mmol/L (136-145); Total Protein 7.1 g/dL (6.4-8.2)
[2025-01-08] MEDS: Normal Saline Flush 10 ML SYR IVP (11:11)
[2025-01-10 15:31] LABS: Cancer Ag 15-3 33 U/mL (<30)
== END 2025-01-22 23:59 | disposition home or self-care (01) ==
LOC: INF 04:07
PROVIDERS: Nurse Practitioner; PCP Family Medicine; Visit Provider Internal Medicine
DX: C50.919 Malignant neoplasm of unspecified site of unspecified female breast (principal); Z45.2 Encounter for adjustment and management of vascular access device
CPT/HCPCS: 36591; 80053; 86300; 85025

== ENCOUNTER 2025-02-05 09:17 | Outpatient (RCR) | payer MEDICARE, MEDICAID, SELFPAY ==
[2025-02-05 09:29] LABS: Abs Immature Grans 0.02 10^3/uL (0.0-0.06); HCT 37.2 % (36.0-46.0); HGB 11.9 g/dL (11.2-15.7); Immature Grans % 0.3 %; MCH 26.3 pg (27.0-33.0); MCHC 32.0 % (32.0-36.0); MCV 82 fL (80-95); MPV 9.4 fL (8.0-11.0); Platelet Count 145 10^3/uL (130-400); RBC 4.53 10^6/uL (3.93-5.22); RDW 13.9 % (11.7-14.6); RDW-SD 41.1 fL; WBC 5.76 10^3/uL (4.4-10.8)
[2025-02-05 09:43] LABS: ALT 27 U/L (14-59); AST 25 U/L (15-37); Albumin 3.2 g/dL (3.4-5.0); Alkaline Phosphatase 107 U/L (46-116); Anion Gap 9.3 mmol/L (3-11); BUN 12 mg/dL (7-18); Bilirubin, Total 0.3 mg/dL (0.2-1.0); CO2 25.7 mmol/L (21.0-32.0); Calcium 8.5 mg/dL (8.5-10.1); Chloride 107 mmol/L (98-107); Glucose 103 mg/dL (74-106); Potassium 3.9 mmol/L (3.5-5.1); Sodium 142 mmol/L (136-145); Total Protein 6.6 g/dL (6.4-8.2)
[2025-02-06 20:14] LABS: Cancer Ag 15-3 40 U/mL (<30)
== END 2025-02-22 23:59 | disposition home or self-care (01) ==
LOC: INF 09:17
PROVIDERS: Nurse Practitioner; PCP Family Medicine; Visit Provider Internal Medicine
DX: C50.919 Malignant neoplasm of unspecified site of unspecified female breast (principal); Z17.31 Human epidermal growth factor receptor 2 positive status; Z79.51 Long term (current) use of inhaled steroids; E87.6 Hypokalemia; Z15.09 Genetic susceptibility to other malignant neoplasm
CPT/HCPCS: 36591; 80053; 86300; 85025

== ENCOUNTER 2025-03-19 01:42 | Outpatient (CLI) | payer MEDICARE, MEDICAID, SELFPAY ==
[2025-03-19 14:50] LABS: Abs Immature Grans 0.03 10^3/uL (0.0-0.06); HCT 30.4 % (36.0-46.0); HGB 9.7 g/dL (11.2-15.7); Immature Grans % 0.5 %; MCH 27.0 pg (27.0-33.0); MCHC 31.9 % (32.0-36.0); MCV 85 fL (80-95); MPV 9.6 fL (8.0-11.0); Platelet Count 182 10^3/uL (130-400); RBC 3.59 10^6/uL (3.93-5.22); RDW 16.6 % (11.7-14.6); RDW-SD 48.1 fL; WBC 6.10 10^3/uL (4.4-10.8)
== END 2025-03-19 01:43 | disposition home or self-care (01) ==
LOC: LBO 01:43 → LBN 14:45
PROVIDERS: PCP Family Medicine; Visit Provider Nurse Practitioner
DX: Z17.31 Human epidermal growth factor receptor 2 positive status (principal); C50.919 Malignant neoplasm of unspecified site of unspecified female breast; C79.51 Secondary malignant neoplasm of bone; Z15.01 Genetic susceptibility to malignant neoplasm of breast; Z15.09 Genetic susceptibility to other malignant neoplasm; E87.6 Hypokalemia
CPT/HCPCS: 85025

== ENCOUNTER 2025-03-19 13:00 | Outpatient (RCR) | payer MEDICARE, MEDICAID, SELFPAY ==
[2025-02-26] MEDS: Normal Saline Flush 10 ML SYR IVP (08:43)
[2025-02-26 08:54] LABS: Abs Immature Grans 0.01 10^3/uL (0.0-0.06); HCT 32.2 % (36.0-46.0); HGB 10.6 g/dL (11.2-15.7); Immature Grans % 0.2 %; MCH 27.2 pg (27.0-33.0); MCHC 32.9 % (32.0-36.0); MCV 83 fL (80-95); MPV 9.2 fL (8.0-11.0); Platelet Count 171 10^3/uL (130-400); RBC 3.89 10^6/uL (3.93-5.22); RDW 14.0 % (11.7-14.6); RDW-SD 39.9 fL; WBC 5.39 10^3/uL (4.4-10.8)
[2025-02-26 09:13] LABS: ALT 18 U/L (14-59); AST 11 U/L (15-37); Albumin 3.1 g/dL (3.4-5.0); Alkaline Phosphatase 88 U/L (46-116); Anion Gap 7.0 mmol/L (3-11); BUN 14 mg/dL (7-18); Bilirubin, Total 0.3 mg/dL (0.2-1.0); CO2 28.0 mmol/L (21.0-32.0); Calcium 8.7 mg/dL (8.5-10.1); Chloride 107 mmol/L (98-107); Estimated GFR 57.52 (mL/min/1.73m2); Glucose 135 mg/dL (74-106); Potassium 3.3 mmol/L (3.5-5.1); Sodium 142 mmol/L (136-145); Total Protein 6.6 g/dL (6.4-8.2)
[2025-02-28 18:02] LABS: Cancer Ag 15-3 30 U/mL (<30)
[2025-03-05 13:26] LABS: Abs Immature Grans 0.03 10^3/uL (0.0-0.06); HCT 33.0 % (36.0-46.0); HGB 10.7 g/dL (11.2-15.7); Immature Grans % 0.5 %; MCH 27.1 pg (27.0-33.0); MCHC 32.4 % (32.0-36.0); MCV 84 fL (80-95); MPV 8.8 fL (8.0-11.0); Platelet Count 167 10^3/uL (130-400); RBC 3.95 10^6/uL (3.93-5.22); RDW 16.0 % (11.7-14.6); RDW-SD 42.5 fL; WBC 5.93 10^3/uL (4.4-10.8)
[2025-03-05] MEDS: Normal Saline Flush 10 ML SYR IVP (13:39)
[2025-03-05 13:47] LABS: ALT 14 U/L (10-49); AST 21 U/L (<34); Albumin 4.1 g/dL (3.4-5.0); Alkaline Phosphatase 79 U/L (46-116); Anion Gap 10.1 mmol/L (3-11); BUN 14 mg/dL (9-23); Bilirubin, Total 0.40 mg/dL (0.2-1.2); CO2 25.9 mmol/L (20.0-31.0); Calcium 9.3 mg/dL (8.3-10.6); Chloride 111 mmol/L (98-107); Glucose 114 mg/dL (74-106); Potassium 3.5 mmol/L (3.5-5.1); Sodium 147 mmol/L (136-145); Total Protein 6.7 g/dL (5.7-8.2)
[2025-03-06 19:04] LABS: Cancer Ag 15-3 31 U/mL (<30)
[2025-03-19 13:50] LABS: ALT 14 U/L (10-49); AST 20 U/L (<34); Albumin 3.9 g/dL (3.2-5.0); Alkaline Phosphatase 85 U/L (46-116); Anion Gap 7.8 mmol/L (3-11); BUN 11 mg/dL (9-23); Bilirubin, Total 0.50 mg/dL (0.2-1.2); CO2 27.2 mmol/L (20.0-31.0); Calcium 8.9 mg/dL (8.3-10.6); Chloride 108 mmol/L (98-107); Glucose 96 mg/dL (74-106); Potassium 3.8 mmol/L (3.5-5.1); Sodium 143 mmol/L (136-145); Total Protein 6.7 g/dL (5.7-8.2)
[2025-03-19] MEDS: Normal Saline Flush 10 ML SYR IVP (14:32)
[2025-03-22 14:30] LABS: Cancer Ag 15-3 32 U/mL (<30)
== END 2025-03-24 23:59 | disposition home or self-care (01) ==
LOC: INF 13:00
PROVIDERS: Nurse Practitioner; PCP Family Medicine; Visit Provider Internal Medicine
DX: C50.919 Malignant neoplasm of unspecified site of unspecified female breast (principal); Z15.01 Genetic susceptibility to malignant neoplasm of breast; Z17.31 Human epidermal growth factor receptor 2 positive status; C79.51 Secondary malignant neoplasm of bone; Z15.09 Genetic susceptibility to other malignant neoplasm; E87.8 Other disorders of electrolyte and fluid balance, not elsewhere classified; Z45.2 Encounter for adjustment and management of vascular access device
CPT/HCPCS: 36591; 80053; 86300; 85025